=== PATIENT | female | born 1945 | race Caucasian/White ===

== ENCOUNTER → 2016-05-15 | Outpatient (CLI) | payer MEDICARE ==
[~2016-05-15] MED LIST: /HCTZ25TA PO; /MOXI40TA OR; /ONDA4TA OR; /PANT40TA PO; ABIL2TAB PO; ADV100INH INH; ADV250INH INH; ALPR0.25 OR; ALTA1CAP2 PO; AMLO10TA PO; AMLO25TA PO; ANOR1AER INH; ASPI1TAB PO; ASPI81TA85 PO; AUGM875T27 PO; AZEL0.055; AZITPOW XX; CARA1TAB2 PO; CHOLESTEROL MED; CIMETIDINE; COLA100C PO; COMBAER6 INH; COMBIN INH; CORE25TA PO; FOLI1TAB86 PO; K-TA1TAB PO; KLOR1TAB77 PO; LASI40TA PO; LEVA500T OR; LIPI80TA PO; LISI20TA5 OR; MAALSUS18 PO; MAGN400C2 PO; MAGN400T PO; MAGN400T5 PO; MAGO400T PO; MECL-68 PO; METO5TAB2 PO; NICO14DI3 TD; NICO21DI26 TOP; NICO21DI4 TD; OMEP20TA7 PO; PANT40TA2 PO; PLAV75TA38 PO; POTA10CA PO; PRED10PA PO; PRED10TA PO; PRED10TA2 PO; PREMARI625 PO; PRIL40CA OR; PRILOSEC20 PO; PRIN10TA PO; PROT1TAB2 PO; ROSU10TA OR; SERT-141 PO; SPIR25TA2 PO; SPIRIVA INH; THIA100T PO; TRAZ50TA2 PO; VITMTA PO; XANA0.25 OR; ZEST20TA OR; ZOLO25TA OR; ZYRT10CA PO; ZYRT10TA2 PO; [UNRECOGNIZED DRUG - CODE] INH; [UNRECOGNIZED DRUG - REMARK]
[2016-05-15 11:48] LABS: ANION GAP 7 MEQ/L (8-16); BLOOD UREA NITROGEN 12 MG/DL (7-18); CALCIUM LEVEL 8.9 MG/DL (8.8-10.2); CARBON DIOXIDE LEVEL 37 MEQ/L (21-32); CHLORIDE LEVEL 91 MEQ/L (98-107); CREATININE FOR GFR 0.73 MG/DL (0.55-1.02); GLOMERULAR FILTRATION RATE > 60.0 (>39); GLUCOSE, FASTING 83 MG/DL (83-110); MAGNESIUM LEVEL 2.1 MG/DL (1.8-2.4); POTASSIUM SERUM 4.2 MEQ/L (3.5-5.1); SODIUM LEVEL 135 MEQ/L (136-145)
== END ==
LOC: M WUC 10:12
PROVIDERS: ATTEND Nurse Practitioner Family
DX: I10 Essential (primary) hypertension (principal)

== ENCOUNTER 2016-05-16 20:10 | Inpatient (IN) | payer MEDICARE ==
[~2016-05-16] VITALS: Ht 157.5 cm; Wt 62.0 kg
[~2016-05-16 20:10] MED LIST changes: -ANOR1AER INH; -ASPI1TAB PO; -AZEL0.055; -COLA100C PO; -MAGN400T PO; -METO5TAB2 PO; -POTA10CA PO
[2016-05-16] MEDS ORDERED: MORPHINE 4 MG/ML 1ML SYRINGE As Ordered ONE (20:50)
[2016-05-16] MEDS ORDERED: ONDANSETRON 4MG/2ML VIAL (J2405) As Ordered ONE (20:50)
[2016-05-16 21:01] LABS: VENOUS BASE EXCESS 7.5 (-2.0-2.0); VENOUS O2 SATURATION 77.9 % (60.0-80.0); VENOUS PARTIAL PRESSURE CO2 60.9 mmHg (38.0-50.0); VENOUS PARTIAL PRESSURE O2 43.3 mmHg (30.0-50.0); VENOUS STANDARD HCO3 30.8 MEQ/L; VENOUS TOTAL CO2 36.6 MEQ/L (24.0-28.0)
[2016-05-16 21:07] LABS: BASO % 0.4 % (0.0-1.0); EOS # 0.1 K/mm3 (0.0-0.50); EOS % 1.5 % (0.0-3.0); LARGE UNSTAINED CELL # 0.1 K/mm3 (0.0-0.4); LARGE UNSTAINED CELL % 1.7 % (0.0-4.0); LYMPH # 1.3 K/mm3 (1.5-4.5); LYMPH % 20.3 % (24.0-44.0); MEAN CORPUSCULAR HEMOGLOBIN 26.7 pg (27.0-33.0); MEAN CORPUSCULAR HGB CONC 31.7 g/dl (32.0-36.5); MEAN CORPUSCULAR VOLUME 84.2 fl (80.0-96.0); MONO # 0.6 K/mm3 (0.0-0.8); MONO % 9.5 % (0.0-5.0); NEUTROPHILS # 3.9 K/mm3 (1.8-7.7); NEUTROPHILS % 66.6 % (36.0-66.0); PLATELET COUNT, AUTOMATED 281 k/mm3 (150-450); RED CELL DISTRIBUTION WIDTH 15.5 % (11.5-14.5); WHITE BLOOD COUNT 5.8 K/mm3 (4.0-10.0)
[2016-05-16 21:18] LABS: ALBUMIN 3.3 GM/DL (3.2-5.2); ALBUMIN/GLOBULIN RATIO 0.97 (1.00-1.93); ALKALINE PHOSPHATASE 94 U/L (45-117); ALT/SGPT 21 U/L (12-78); AMYLASE 73 U/L (25-115); ANION GAP 7 MEQ/L (8-16); AST/SGOT 24 U/L (15-37); BILIRUBIN,DIRECT 0.2 MG/DL (0.0-0.2); BILIRUBIN,TOTAL 0.6 MG/DL (0.2-1.0); BLOOD UREA NITROGEN 17 MG/DL (7-18); CALCIUM LEVEL 8.9 MG/DL (8.8-10.2); CARBON DIOXIDE LEVEL 36 MEQ/L (21-32); CHLORIDE LEVEL 93 MEQ/L (98-107); CREATININE FOR GFR 0.78 MG/DL (0.55-1.02); GLOMERULAR FILTRATION RATE > 60.0 (>39); GLUCOSE, FASTING 116 MG/DL (83-110); POTASSIUM SERUM 4.4 MEQ/L (3.5-5.1); SODIUM LEVEL 136 MEQ/L (136-145); TOTAL PROTEIN 6.7 GM/DL (6.4-8.2)
[2016-05-16] MEDS ORDERED: ISOVUE-370 76% 100ML VIAL (Q9967) As Ordered ONE (22:03)
--- NOTE | 2016-05-16 23:20 | REPUSA ---
CLINICAL HISTORY: Abdominal pain. TECHNIQUE: Multiple axial CT images were obtained through the abdomen and pelvis after administratio n of intravenous contrast material. Oral contrast was not administered. COMMENTS: Scattered severe bilateral emphysema is seen. Moderate sized bilateral pleural effusions are present. Bibasilar consolidations are present compatible with atelectasis versus pneumonia. Coronary calcif ication is seen with scarring seen in the right lobe of the lingula. The liver is of uniform attenuation without mass or defect. There is no intra or extrahepatic biliar y ductal dilatation. The spleen is normal. There is apparent gallbladder wall thickening. There is pericholecystic fluid. A 1 mm calcified gallstone is seen. The findings are suspicious for cholecy stitis. Clinical correlation is recommended to consider follow up with right upper quadrant ultrasou nd. The pancreas is of normal contour and attenuation characteristics. There is no evidence of adre nal mass. Both kidneys are lobulated. Several bilateral cortical renal cysts are present. Status post complet e hysterectomy. No evidence for appendicitis. There is no bowel wall thickening. No evidence for small or large bow el obstruction. There is no evidence of abdominal ascites or lymphadenopathy. There is no evidence of intrinsic or extrinsic bladder mass. There is no pelvic ascites or lymphaden opathy. Images of the lung bases show no evidence of pleural or parenchymal mass. There are no pleural effus ions. The bony structures are free of lytic or blastic lesions. IMPRESSION: 1. Findings suspicious for acute cholecystitis. Consider correlation with right upper quadrant ultra sound. 2. Bilateral pleural effusions, emphysema. 3. Several small bilateral cortical renal cysts. Thank you for your kind referral of this patient. We appreciate the opportunity to participate in thi s patient's care.
--- NOTE | 2016-05-17 01:10 | REPUSA ---
CLINICAL HISTORY: Abdominal pain. TECHNIQUE: Realtime sonographic images were obtained in multiple projections. COMMENTS: The liver is of normal size, parenchyma demonstrates normal echogenicity. No discrete hepatic mass is seen. There is no intra or extrahepatic biliary ductal dilatation. CBD measures 6.6mm. The gallbladder is d iffusely thickened without evidence of calculi. The gallbladder wall is not thickened and there is no pericholecystic fluid. There is no abdominal ascites. The right kidney measures 9.3 x3.8 cm , free of hydronephrosis. Multiple right renal cortical cysts with the largest in the upper pole measuring 1.6 cm. Right pleural effusion. IMPRESSION: Diffuse thickening of the lower of the gallbladder suspicious for an inflammatory pathology. No cholelithiasis. Thank you for your kind referral of this patient.
[2016-05-17] MEDS ORDERED: FUROSEMIDE 40 MG/4 ML VIAL (J1940) As Ordered ONE ×2 (02:16→12:21)
[2016-05-17] MEDS ORDERED: IPRATROPIUM 0.5MG/ALBUTEROL 2.5MG INH SOL UD 3ML (DUONEB)(J7620) As Ordered ONE ×5 (03:23→23:28)
[2016-05-17] MEDS ORDERED: ANOR1AER INH (03:24)
[2016-05-17] MEDS ORDERED: COLA100C PO (03:24)
[2016-05-17] MEDS ORDERED: AZEL0.055 (03:24)
[2016-05-17] MEDS ORDERED: METO5TAB2 PO (03:24)
[2016-05-17 04:39] VITALS: BP 125/85
[2016-05-17] MEDS: methylPREDNISolone INJ 40 MG/1 ML VIAL (J2920) IV SCH ×2 (04:56→17:17)
[2016-05-17] MEDS: IPRATROPIUM 0.5MG/ALBUTEROL 2.5MG INH SOL UD 3ML (DUONEB)(J7620) NEB PRN ×2 (05:30→19:37)
[2016-05-17] MEDS ORDERED: DOCUSATE SODIUM 100 MG CAP PO PRN (06:45)
[2016-05-17] MEDS: IPRATROPIUM 0.5MG/ALBUTEROL 2.5MG INH SOL UD 3ML (DUONEB)(J7620) NEB SCH ×3 (07:11→23:32)
[2016-05-17] MEDS ORDERED: ATORVASTATIN 20 MG TAB As Ordered ONE ×2 (07:46→07:50)
[2016-05-17] MEDS ORDERED: ENOXAPARIN 40 MG/0.4 ML SYRINGE (J1650) As Ordered ONE (07:46)
[2016-05-17] MEDS ORDERED: PANTOPRAZOLE 40MG TAB (PROTONIX) As Ordered ONE (07:46)
[2016-05-17] MEDS ORDERED: CLOPIDOGREL 75 MG TAB As Ordered ONE (07:46)
[2016-05-17] MEDS: PANTOPRAZOLE 40MG TAB (PROTONIX) PO SCH (07:50)
[2016-05-17] MEDS: ATORVASTATIN 20 MG TAB PO SCH (07:50)
[2016-05-17] MEDS: CLOPIDOGREL 75 MG TAB PO SCH (07:50)
[2016-05-17] MEDS: ENOXAPARIN 40 MG/0.4 ML SYRINGE (J1650) SC SCH (07:51)
[2016-05-17 07:59] VITALS: BP 116/59
[2016-05-17] MEDS ORDERED: IPRATROPIUM 0.5MG/ALBUTEROL 2.5MG INH SOL UD 3ML (DUONEB)(J7620) NEB SCH (08:00)
--- NOTE | 2016-05-17 08:31 | REP ---
Clinical: Cough. Comparison: 09/18/2015. Findings: Stable cardiomegaly is appreciated along with evidence to suggest pulmonary vascular congestion and interstitial edema. Layering pleural effusions and right basilar atelectasis suggested. Impression: Mild cardiomegaly with pulmonary vascular congestion and interstitial edema including suspected layering effusions and right basilar atelectasis. Signed by Kamron Kaufman MD 05/17/2016 08:22 A
--- NOTE | 2016-05-17 08:41 | ECGEPIP ---
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 RBBB ANTEROSEPTAL MYOCARDIAL INFARCTION, OF INDETERMINATE AGE NONSPECIFIC ST DEPRESSION SIMILKAR TO 07/02/15 Electronically Signed On 05-17-2016 8:41:01 EST by Chas Hanna
[2016-05-17] MEDS ORDERED: NICOTINE 21MG/24HR 1 EA TRANSDERMAL As Ordered ONE (09:05)
[2016-05-17] MEDS: METOCLOPRAMIDE 5 MG TAB PO SCH (09:09)
[2016-05-17] MEDS: MAGNESIUM OXIDE 400 MG TAB (MAG-OX) PO SCH (09:09)
[2016-05-17] MEDS: NICOTINE 21MG/24HR 1 EA TRANSDERMAL TD SCH (09:09)
[2016-05-17] MEDS: amLODIPine 10 MG TAB PO SCH (09:11)
--- NOTE | 2016-05-17 10:09 | HPE ---
DATE OF ADMISSION: 05/17/2016 PRIMARY CARE PROVIDER: Brown Trotter CODE STATUS: Full code. CHIEF COMPLAINT: Increasing shortness of breath for the last few days. HISTORY OF PRESENT ILLNESS: 70-year-old female patient of Brown Trotter who presented to the emergency department initially with complaint of abdominal pain for the last few days located more in the right upper quadrant, but she also states she has noticed increasing shortness of breath, nonproductive cough, dyspnea on exertion, lower extremity edema and orthopnea and she states that she has to sleep on 2 pillows at night which she has had to do for the last week or two. She does have a previous history of coronary artery disease status post stent placement a few years ago and high blood pressure. She continues to smoke approximately a pack a day, which we did could discuss smoking cessation and counseling was provided at bedside. She denies any substernal chest pain. No nausea or vomiting; however, the workup in the emergency department did reveal some thickening of the gallbladder with no cholelithiasis and her laboratory data was relatively unremarkable. PAST MEDICAL HISTORY (includes): 1. Chronic obstructive pulmonary disease (COPD). 2. Hypertension. 3. Status post cerebrovascular accident with no residual symptoms. 4. Coronary artery disease status post stent placement. 5. Uterine cancer. 6. Hypokalemia. 7. Hypomagnesemia. 8. Gastroesophageal reflux disease (GERD). SOCIAL HISTORY: The patient continues to smoke approximately a pack a day for several decades. She denies any alcohol use. No recent travel. No sick contacts. FAMILY HISTORY: Noncontributory. ALLERGIES: No known drug allergies. HOME MEDICATION LIST INCLUDES: - amlodipine 10 mg daily - Lipitor 80 mg daily - Plavix 75 mg daily - Klor-Con 20 mEq daily - magnesium oxide 400 mg daily - Protonix 40 mg daily - metoclopramide 5 mg once daily - Combivent inhaler 2 puffs four times daily - aspirin 81 mg daily - Anoro Ellipta 1 inhalation daily - Azelastine nasal spray 1 spray per nostril twice a day REVIEW OF SYSTEMS: Constitutional: The patient denies fevers, chills or rigors, but she has had decreased exercise tolerance and dyspnea on exertion. HEENT: No headache, lightheaded, dizziness. No blurry vision, double vision or tinnitus. Denies difficulty with speech or swallow. Pulmonary: She has had increasing shortness of breath, dyspnea on exertion, wheeze, nonproductive cough. Cardiovascular: She denies substernal chest pain, but she does have symptoms consistent with paroxysmal nocturnal dyspnea (PND), orthopnea and lower extremity edema for the last week or so. Gastrointestinal (GI): Right upper quadrant abdominal pain, constipation intermittently. Bowel movements otherwise have no hematochezia or melena. Genitourinary (): No dysuria, frequency or hematuria. Musculoskeletal: No bone, muscle, or joint pains, swelling or edema. Neurologic: No paresthesias. No paralysis. Lymphatics: No lumps, bumps, or swelling in the neck, axilla or groin. No night sweats. No weight loss. Hematology: No history of venous thromboembolism. No bleeding disorder or bruising disorder. Oncology: No history of cancer. Endocrine: Negative for diabetes, negative for thyroid disorder. Psychiatric: No history of depression. Denies suicidal ideation. No audiovisual hallucinations. 10-point review of systems completed, pertinent positives are listed. PHYSICAL EXAMINATION: Temperature is 98.7, respiratory rate is 22, pulse 80 and nonlabored, blood pressure (BP) is 133/60, SPO2 is 93% on 2 liters. She was attempted to titrate off and she desaturated into the 70s. General: The patient appears to be in no acute distress. She is alert and oriented. HEENT: Head is atraumatic, normocephalic. She does have 3 centimeter jugular venous distention (JVD) noted. Trachea is midline. No thyromegaly. Lungs: Diminished bibasilar breath sounds with expiratory wheeze and occasional crackles. Heart: Regular rate and rhythm. Abdomen: Soft. Extremities: She does have 1+ edema above the ankles bilaterally. No calf tenderness. Cranial nerves II-XII grossly intact. She is not demonstrating any gross motor or sensory deficits. LABORATORY DATA AND DIAGNOSTICS: White count 5.8, hemoglobin 12.4, platelets are 281,000. VBG shows a pH 7.374, pCO2 60.9. Sodium 136, potassium 4.4, chloride 93, bicarb 36, anion gap 7, BUN 17, creatinine is 0.78, glucose 116, lactic acid 1.0, total bilirubin 0.8, direct bilirubin 0.2, AST 24, ALT 21, alkaline phosphatase 94, CK 118, CK-MB 2.8 and troponin 0.02. BNP is pending at this time. Albumin 3.3, amylase is 73 and , lipase is 106. Abdomen and Pelvis: findings suspicious for acute cholecystitis, bilateral pleural effusions and emphysema is noted in the lower portion of the lungs and several small bilateral cortical renal cysts are noted. Gallbladder Ultrasound: Diffuse thickening of the lower part of the gallbladder suspicious for inflammatory pathology. No cholelithiasis noted. No other acute findings. Portable Chest X-ray: She does have some small bilateral pleural effusions noted with cephalization of pulmonary vasculature noted. She however does not show any significant cardiomegaly. 12-lead EKG sinus rhythm with occasional ectopic premature beats. No acute ST-T wave abnormality; however, she does have significant left axis deviation. This is consistent with previous EKG done on 07/02/2015. IMPRESSION: Ms. Welch is a 70-year-old female who has had increasing shortness of breath, dyspnea on exertion, paroxysmal nocturnal dyspnea (PND), orthopnea and lower extremity edema for approximately a week now. She does sleep on two pillows at home and she has noticed that her symptoms have become worse over the last few days. She did present to the emergency department with right upper quadrant pain. She did receive a liter bolus of normal saline. This may have further exacerbated her symptomatology. At any rate, she will need to be admitted for further workup for what appears to be volume overload and congestive heart failure. PROBLEM LIST: 1. Acute decompensation of congestive heart failure. 2. Right upper quadrant pain with possible cholelithiasis. Normal labs and no signs of biliary obstruction. 3. Chronic obstructive pulmonary disease (COPD). 4. Tobacco use with counseling provided. 5. History of coronary artery disease status post stent placement. 6. Hypertension. 7. Gastroesophageal reflux disease. 8. History of uterine cancer. PLAN: The patient will be admitted to the progressive care unit (PCU). Will cycle cardiac enzymes. Check 2D echocardiogram. She was given 40 of Lasix in the emergency department. Will continue with net negative Lasix. Fluid restrict to 1800 mL per day. Will give her a low sodium/bland diet. Deep vein thrombosis (DVT) prophylaxis with Lovenox. Her current home medications are being reconciled by pharmacy. Will also give her 40 mg of Solu-Medrol twice a day for possible COPD exacerbation. She does have some acute hypoxia requiring O2 supplementation. Will see if we can start titrating once she has diuresed well. At any rate, her BNP and 2D echo are pending at this time. DISPOSITION: Anticipate she will be here greater than two midnights. I will sign this patient out to Dr. Jacob to follow her in the morning.
[2016-05-17 12:00] VITALS: BP 115/58
[2016-05-17] MEDS: FUROSEMIDE 40 MG/4 ML VIAL (J1940) IV SCH (12:23)
[2016-05-17] MEDS ORDERED: ONDANSETRON 4MG/2ML VIAL (J2405) As Ordered ONE ×2 (14:24→20:33)
[2016-05-17] MEDS: ONDANSETRON 4MG/2ML VIAL (J2405) IV PRN ×2 (14:26→20:37)
--- NOTE | 2016-05-17 15:22 | ECHO ---
DATE OF PROCEDURE: 05/17/2016 AGE: 70 GENDER: Female. HEIGHT: 62 inches. WEIGHT: 138 pounds. BODY SURFACE AREA: 1.64 sq m INPATIENT: Currently on holding area in the emergency room. REFERRING PHYSICIAN: Dr. Kaleb Cunningham INDICATION: CHF. MEASUREMENTS: 2D MEASUREMENTS: RV: 3.6 cm LV: 4.8 cm Septum: 1.1 cm Posterior wall: 1.1 cm Right ventricular free wall: 0.8 cm Aortic root: 2.7 cm LA: 4.3 cm LVEF: 75%. DOPPLER MEASUREMENTS: AV: 1.8 m/s LVOT: 1.2 m/s LVOT diameter: 1.8 MV-E: 91 A: 140 E/A ratio: 0.7 Early mitral deceleration time: 277 ms E prime: 6.3 A prime: 7.4 E/E prime ratio: 14.4 PV: 1.0 m/s Pulmonary artery acceleration time: 103 ms RVSP: 51-56 mmHg IVC: 2.1 cm COMMENTS: Normal sinus rhythm without intraventricular conduction disturbance. Somewhat technically challenging study in light of the patient's body habitus, but diagnostically useful information was still obtained. At least mildly dilated left atrium, but normal left ventricular size. Normal right ventricular size with right atrium upper limits of normal and slightly dilated IVC. LV wall thickness was normal. Right ventricular free wall thickness was slightly increased. On real-time imaging from the parasternal and apical projections, the proximal portion of the inferoseptal wall was hypokinetic, but other wall motion was hyperkinetic. Mild-moderate mitral annular thickening, but normal leaflet thickness and excursion with no posterior systolic buckling. Three equal size, slightly thickened aortic cusp edges, but adequate cusp separation. Normal aortic root size. No apparent intracardiac mass or pericardial effusion. Color flow Doppler study taken from the parasternal and apical projections showed mild-moderate mitral with mild tricuspid, but no aortic insufficiency. Guided continuous wave Doppler of her aortic valve showed a normal peak systolic velocity against left ventricular (LV) outflow tract obstruction. Pulsed and continuous wave Doppler of her LV inflow tract taken from the apical four-chamber projection showed normal diastolic filling velocities against mitral stenosis. There was more prominent late diastolic/atrial dependent filling pattern. Diastolic dysfunction was further confirmed by a prolonged early mitral deceleration time and tissue Doppler of her mitral annulus. Her current estimated mean left atrial pressure was upper limits of normal to slightly elevated at 14 mmHg. Pulsed and continuous wave Doppler of her pulmonary trunk showed a normal peak systolic velocity against right ventricular (RV) outflow tract obstruction. Her pulmonary artery acceleration time was abbreviated suggestive of a slightly elevated pulmonary vascular resistance. Guided continuous wave Doppler of her tricuspid valve allowed our estimation of her right ventricular systolic pressure (at least moderately severely increased). Her inferior vena cava was at least mildly dilated with reduced respiratory collapse suggestive of an elevated central venous pressure of 15-20 mmHg. CONCLUSIONS: Normal left ventricular size and wall thickness with localized proximal inferoseptal hypokinesis, yet hyperkinetic global resting left ventricular systolic function. Mildly dilated left atrium with Doppler evidence of an impairment of left ventricular (LV) diastolic function, but currently estimated mean left atrial pressure only upper limits of normal to slightly elevated. Normal right ventricular size with borderline right ventricular free wall hypertrophy and Doppler evidence of moderately severe pulmonary hypertension. Slightly dilated right atrium and IVC with reduced respiratory collapse consistent with right heart failure. Mild mitral annular calcification without inflow tract obstruction but mild to moderate insufficiency. Aortic valvular sclerosis without functional valvular abnormality.
[2016-05-17 16:00] VITALS: BP 125/57
[2016-05-17 20:00] VITALS: BP 95/93
[2016-05-17] MEDS ORDERED: diphenhydrAMINE 25 MG CAP PO PRN (21:45)
[2016-05-17] MEDS ORDERED: diphenhydrAMINE 25 MG CAP As Ordered ONE (21:50)
[2016-05-18] VITALS: BP 104/55
[2016-05-18] MEDS ORDERED: FUROSEMIDE 40 MG/4 ML VIAL (J1940) As Ordered ONE (00:16)
[2016-05-18] MEDS ORDERED: FUROSEMIDE 20 MG/2 ML VIAL (J1940) As Ordered ONE (00:16)
[2016-05-18] MEDS: FUROSEMIDE 40 MG/4 ML VIAL (J1940) IV SCH (00:19)
[2016-05-18] MEDS ORDERED: methylPREDNISolone INJ 125 MG/2 ML VIAL (J2930) As Ordered ONE (03:59)
[2016-05-18 04:00] VITALS: BP 122/56
[2016-05-18] MEDS ORDERED: IPRATROPIUM 0.5MG/ALBUTEROL 2.5MG INH SOL UD 3ML (DUONEB)(J7620) As Ordered ONE ×2 (04:14→08:01)
[2016-05-18] MEDS: IPRATROPIUM 0.5MG/ALBUTEROL 2.5MG INH SOL UD 3ML (DUONEB)(J7620) NEB PRN (04:16)
[2016-05-18] MEDS: methylPREDNISolone INJ 40 MG/1 ML VIAL (J2920) IV SCH (04:16)
[2016-05-18] MEDS ORDERED: ONDANSETRON 4MG/2ML VIAL (J2405) As Ordered ONE (05:50)
[2016-05-18] MEDS: ONDANSETRON 4MG/2ML VIAL (J2405) IV PRN (05:53)
[2016-05-18 06:43] LABS: MEAN CORPUSCULAR HEMOGLOBIN 26.6 pg (27.0-33.0); MEAN CORPUSCULAR HGB CONC 31.7 g/dl (32.0-36.5); MEAN CORPUSCULAR VOLUME 83.9 fl (80.0-96.0); RED CELL DISTRIBUTION WIDTH 15.6 % (11.5-14.5); WHITE BLOOD COUNT 4.7 K/mm3 (4.0-10.0)
[2016-05-18 07:03] LABS: ALBUMIN/GLOBULIN RATIO 0.88 (1.00-1.93); ALKALINE PHOSPHATASE 79 U/L (45-117); ALT/SGPT 17 U/L (12-78); ANION GAP 8 MEQ/L (8-16); AST/SGOT 14 U/L (15-37); BILIRUBIN,TOTAL 0.4 MG/DL (0.2-1.0); BLOOD UREA NITROGEN 18 MG/DL (7-18); CARBON DIOXIDE LEVEL 41 MEQ/L (21-32); CHLORIDE LEVEL 90 MEQ/L (98-107); CREATININE FOR GFR 0.87 MG/DL (0.55-1.02); GLOMERULAR FILTRATION RATE > 60.0 (>39); GLUCOSE, FASTING 130 MG/DL (83-110); SODIUM LEVEL 139 MEQ/L (136-145); TOTAL PROTEIN 6.4 GM/DL (6.4-8.2)
[2016-05-18 07:06] LABS: POTASSIUM SERUM 3.4 MEQ/L (3.5-5.1)
[2016-05-18 08:00] VITALS: BP 118/66
[2016-05-18] MEDS: IPRATROPIUM 0.5MG/ALBUTEROL 2.5MG INH SOL UD 3ML (DUONEB)(J7620) NEB SCH (08:08)
[2016-05-18] MEDS: PANTOPRAZOLE 40MG TAB (PROTONIX) PO SCH (08:39)
[2016-05-18] MEDS: METOCLOPRAMIDE 5 MG TAB PO SCH (08:39)
[2016-05-18] MEDS: MAGNESIUM OXIDE 400 MG TAB (MAG-OX) PO SCH (08:39)
[2016-05-18 08:41] VITALS: BP 118/66
[2016-05-18] MEDS: CLOPIDOGREL 75 MG TAB PO SCH (08:41)
[2016-05-18] MEDS: amLODIPine 10 MG TAB PO SCH (08:41)
[2016-05-18] MEDS: NICOTINE 21MG/24HR 1 EA TRANSDERMAL TD SCH (08:41)
[2016-05-18] MEDS: ENOXAPARIN 40 MG/0.4 ML SYRINGE (J1650) SC SCH (08:41)
[2016-05-18] MEDS: ATORVASTATIN 20 MG TAB PO SCH (08:41)
--- NOTE | 2016-05-18 11:22 | EDDOCDS ---
Physician Documentation [facility] Name: Roberta Welch Age: 70 yrs Sex: Female : 1945 Arrival Date: 05/16/2016 Time: 20:10 Bed Admit Hold Private MD: Disposition: 05/17/16 02:11 Hospitalization ordered by Kaleb Cunningham for Inpatient Admission. Preliminary diagnosis are Acute diastolic (congestive) heart failure, Hypoxemia, Abdominal and pelvic pain - Biliary Colic. - Bed requested for Admit. - Status is Inpatient Admission. kcs - Condition is Stable. - Problem is an acute exacerbation. - Symptoms have improved. Historical: - Allergies: No known drug Allergies; - Home Meds: 1. amlodipine 10 mg Oral tab 1 tab once daily 2. atorvastatin 80 mg oral tab 1 tab once daily 3. Plavix 75 mg Oral tab 1 tab once daily 4. Klor-Con M20 20 mEq Oral TbTQ 1 tab once daily 5. magnesium oxide 400 mg Oral tab daily 6. Protonix 40 mg Oral TbEC 1 tab once daily 7. metoclopramide HCl 5 mg Oral tab 1 tab once daily 8. Combivent 18-103 mcg/actuation Inhl aero 2 puffs 4 times per day 9. aspirin 81 mg Oral chew 1 tab once daily 10. Anoro Ellipta 62.5-25 mcg/actuation inhalation dsdv 1 puff once daily 11. azelastine 0.15 % (205.5 mcg) nasal spry 1 spray 2 times per day - PMHx: COPD; Hypertension; CVA; CAD; Cancer, Uterine; - PSHx: Hysterectomy; Stents, Coronary; Knee surgery- Right; - Social history: Smoking status: Patient uses tobacco products, current every day smoker. No barriers to communication noted, The patient speaks fluent Pashto. - Family history: Not pertinent, No immediate family members are acutely ill. - : The pt / caregiver states he / she is on anticoagulants: Plavix. Home medication list is obtained from the patient, [employer] import data. - Exposure Risk Screening:: None identified. Vital Signs: 05/16 20:20 BP 116 / 57; Pulse 103; Resp 22; Temp 98.7(TE); Pulse Ox 87% on R/A; Weight 63.5 kg / jacqueline 139.99 lbs (R); Height 5 ft. 2 in. (157.48 cm) (R); Pain 10/10; 20:23 Pulse Ox 95% on 3 lpm NC; mlc 20:43 BP 123 / 59 (auto/); mlc 20:44 Pulse 92 MON; Pulse Ox 97% ; mlc 20:58 BP 119 / 60 (auto/); mlc 21:05 Pulse 88 MON; Pulse Ox 92% ; mlc 21:13 BP 107 / 59 (auto/); mlc 21:14 Pulse 82 MON; Pulse Ox 93% ; mlc 21:25 BP 107 / 59; Pulse 82; Pain 8/10; mlc 21:28 BP 135 / 60 (auto/); mlc 21:29 Pulse 80 MON; Pulse Ox 93% ; mlc 21:43 BP 123 / 58 (auto/); mlc 21:43 Pulse 80 MON; Pulse Ox 92% ; mlc 21:58 BP 128 / 70 (auto/); mlc 21:59 Pulse 80 MON; Pulse Ox 93% ; mlc 22:13 BP 124 / 66 (auto/); mlc 22:17 Pulse 88 MON; Pulse Ox 91% ; mlc 22:28 BP 122 / 58 (auto/); mlc 22:29 Pulse 82 MON; Pulse Ox 92% ; mlc 22:43 BP 133 / 60 (auto/); mlc 22:44 Pulse 80 MON; Pulse Ox 93% ; mlc 22:58 BP 125 / 59 (auto/); mlc 22:59 Pulse 80 MON; Pulse Ox 93% ; mlc 23:13 BP 128 / 60 (auto/); mlc 23:14 Pulse 82 MON; Pulse Ox 93% ; mlc 23:28 BP 126 / 60 (auto/); mlc 23:29 Pulse 80 MON; Pulse Ox 92% ; mlc 23:43 BP 124 / 60 (auto/); mlc 23:44 Pulse 82 MON; Pulse Ox 93% ; mlc 23:58 BP 127 / 58 (auto/); mlc 05/17 00:13 BP 122 / 59 (auto/); mlc 00:15 Pulse 84 MON; Pulse Ox 90% ; mlc 00:28 BP 125 / 59 (auto/); mlc 00:29 Pulse 78 MON; Pulse Ox 90% ; mlc 00:43 BP 121 / 59 (auto/); mlc 00:44 Pulse 78 MON; Pulse Ox 91% ; mlc 00:58 BP 124 / 59 (auto/); mlc 00:59 Pulse 80 MON; Pulse Ox 90% ; mlc 01:13 BP 121 / 57 (auto/); mlc 01:19 Pulse 80 MON; Pulse Ox 90% ; mlc 01:28 BP 134 / 63 (auto/); mlc 01:29 Pulse 90 MON; Pulse Ox 91% ; mlc 01:43 BP 134 / 59 (auto/); mlc 01:55 BP 136 / 65 (auto/); mlc 02:13 Temp 97.8(T); mlc 02:13 BP 127 / 60 (auto/); mar 30:15 Pulse 84 MON; Pulse Ox 90% ; mar 30:26 Pulse 82 MON; Pulse Ox 94% ; mlc 02:28 BP 141 / 66 (auto/); 02:57 BP 126 / 59 (auto/); mar 30:58 BP 134 / 62 (auto/); mar 30:58 Pulse 82 MON; Pulse Ox 91% ; mar 30:59 Pulse 84 MON; Resp 24; Pulse Ox 92% ; mar 31:28 BP 128 / 60 (auto/); mar 31:29 Pulse 92 MON; Pulse Ox 78% ; apr 16:42 BP 122 / 58; Pulse 97; Resp 20; Temp 98.3; Pulse Ox 93% ; mv5 05/16 20:20 Body Mass Index 25.61 (63.50 kg, 157.48 cm) jacqueline 05/16 20:20 RN AWARE OF O2 jacqueline MDM: 20:42 NS 0.9% 1000 ml IV at bolus once ordered. mm11 20:42 Ondansetron 4 mg IVP once ordered. mm11 20:42 morphine 4 mg IVP every 30 minutes; Document pain score/vitals after each dose (Hold if mm11 SBP < 90mmHg) x2 ordered. 20:42 -Blood Culture (Adults Only), peripheral from different site, or from device/port/PICC mm11 etc. if present ordered. 20:42 Brokerage Office Manager/Pulse Ox/q 15 min VS ordered. mm11 20:42 IV Saline Lock ordered. mm11 20:42 Undress patient appropriately for examination ordered. mm11 20:43 Amylase Ordered. EDMS 20:43 Basic Metabolic Profile Ordered. EDMS 20:44 CBC with Diff Ordered. EDMS 20:44 Cardiac Injury Profile Ordered. EDMS 20:44 Lipase Ordered. EDMS 20:44 Liver Profile Ordered. EDMS 20:44 Troponin Ordered. EDMS 20:44 -Blood Culture Ordered. EDMS 20:44 NOTHING BY MOUTH+DIET ordered. EDMS 20:44 Venous Blood Gas (large pea green tube on ice) Ordered. EDMS 20:44 Lactic Acid (Bunch tube on ice) Ordered. EDMS 20:48 -Blood Culture (Adults Only), peripheral from different site, or from device/port/PICC ml3 etc. if present complete. 20:50 BLOOD CULTURES Ordered. EDMS 21:03 Financial registration complete. gjb 21:05 [facility] Payment Agreement was scanned into [email or web address] and attached to record. gjb 21:41 Basic Metabolic Profile Reviewed. mm11 21:41 CBC with Diff Reviewed. mm11 21:41 Liver Profile Reviewed. mm11 21:41 Venous Blood Gas (large pea green tube on ice) Reviewed. mm11 21:41 Amylase Reviewed. mm11 21:41 Cardiac Injury Profile Reviewed. mm11 21:41 Lipase Reviewed. mm11 21:41 Troponin Reviewed. mm11 21:41 Lactic Acid (Bunch tube on ice) Reviewed. mm11 21:43 CT ABD & PELVIS: IV Contrast Only Ordered. EDMS 23:36 Gallbladder US Ordered. EDMS 02 01:39 CT ABD & PELVIS: IV Contrast Only Reviewed. mm11 01:39 Gallbladder US Reviewed. mm11 02:08 Furosemide 40 mg IVP once ordered. mm11 02:09 BED REQUEST+ADM ordered. EDMS 02:10 Chest, 1 View Ordered. EDMS 02:21 BNP Ordered. EDMS 02:40 CARDIAC INJURY PROFILE Ordered. EDMS 02:40 CARDIAC INJURY PROFILE Ordered. EDMS 02:40 CARDIAC INJURY PROFILE Ordered. EDMS 02:41 Admission / Observation Status ordered. EDMS 02:42 ECHOCARD,DOPPLER/COLOR FLOW ordered. EDMS 02:42 OTHER CUSTOM DIETS ordered. EDMS 02:43 ECG WITH READING ER PHYS+CARDIAG ordered. EDMS 03:14 Albuterol-Ipratropium 3 ml Inhalation once ordered. mm11 03:14 Call Respiratory ordered. mm11 03:14 Call Respiratory complete. ml3 19:31 COMPLETE BLOOD COUNT Ordered. EDMS 19:31 COMPLETE COMPHRENSIVE METABOLI Ordered. EDMS Administered Medications: 05/16 21:00 Drug: NS 0.9% 1000 ml [sodium chloride 0.9 % intravenous solution] Route: IV; Rate: mlc bolus; Site: right forearm; 23:58 Follow up: IV Status: Completed infusion [facility] [place] 21:00 Drug: Ondansetron 4 mg [ondansetron HCl 2 mg/mL intravenous solution (2 mL)] Route: mlc IVP; Site: right forearm; 21:25 Follow up: Response: Nausea is decreased; No Adverse Reaction [facility] [place] 21:00 Drug: morphine 4 mg [morphine 4 mg/mL intravenous cartridge (1 mL)] Route: IVP; Site: [facility] [place] right forearm; 21:25 Follow up: BP 107 / 59; Pulse 82 bpm; Pain 8/10 Adult; Response: Pain is decreased [facility] [place] 05/17 02:28 Drug: Furosemide 40 mg [furosemide 10 mg/mL injection solution (4 mL)] Route: IVP; [facility] [place] Site: right forearm; 03:26 Drug: Albuterol-Ipratropium 3 ml [ipratropium-albuterol 0.5 mg-3 mg(2.5 mg base)/3 mL 6 nebulization soln (3 mL)] Route: Inhalation; Signatures: Dispatcher [employer] EDJana Corona RN RN kcs Jobson, Karen, RN RN kpj Lopresti, Mary-Elizabeth, Amusement Or Recreation Card Checker Unit ml3 Keith Maddox, DO mm11 Lindy Cerna, COMMUTATOR V RING ASSEMBLER COMMUTATOR V RING ASSEMBLER ar3 Lilian Mondragon RN RN mlc Beck, Gabriela gjb Hollis, Jacob 6 The chart was reviewed and I authenticate all verbal orders and agree with the evaluation and treatment provided.Attachments: 05/16 21:05 [facility] [place] Payment Agreement pippa MTDJonnathan
--- NOTE | 2016-05-18 11:22 | EDDOCDS ---
Nurse's Notes [facility] Name: Roberta Guerra Age: 70 yrs Sex: Female : 1945 Arrival Date: 05/16/2016 Time: 20:10 Bed Admit Hold Private MD: Diagnosis: Acute diastolic (congestive) heart failure;Hypoxemia;Abdominal and pelvic pain-Biliary Colic Presentation: 05/16 20:15 Presenting complaint: EMS states: abdominal pain for a few days. pt reports mlc constipation. pain rated 10/10. denies nausea/vomiting. pt states her primary provider is supposed to "run tests on kidneys". Adult Sepsis Screening: The patient does not have new or worsening altered mentation. Patient has a respiratory rate of greater than or equal to 22 (1 point). Systolic blood pressure is greater than 100. Patient has a qSOFA score of 1- Negative Sepsis Screen. Suicide/Homicide risk assessment- the patient denies having any suicidal and/or homicidal ideations and does not present with any other emotional, behavioral or mental health complaints. Status: Patient is not a human service technician or dependent. Transition of care: patient was not received from another setting of care. 20:15 Acuity: DELISA Level 3 [facility] 20:15 Method Of Arrival: Ambulance [facility] Triage Assessment: 20:23 General: Appears uncomfortable, Behavior is anxious, cooperative. Pain: Location: [facility] abdomen Pain currently is 10 out of 10 on a pain scale. The patient is triaged at the bedside. See Assessment in Nurses Notes section of ED record. Neurological: Level of Consciousness is awake, alert, obeys commands, Oriented to person, place, time. Cardiovascular: Heart tones S1 S2 present Rhythm is regular Chest pain is denied. Respiratory: Airway is patent Respiratory effort is labored, Respiratory pattern is tachypnea Breath sounds are diminished in left posterior lower lobe and right posterior lower lobe Breath sounds with wheezes bilaterally. GI: Abdomen is non- distended Bowel sounds present X 4 quads. Abd is tender to palpation X 4 quads. Reports constipation, Denies nausea, vomiting. Derm: Skin is normal. Historical: - Allergies: No known drug Allergies; - Home Meds: 1. amlodipine 10 mg Oral tab 1 tab once daily 2. atorvastatin 80 mg oral tab 1 tab once daily 3. Plavix 75 mg Oral tab 1 tab once daily 4. Klor-Con M20 20 mEq Oral TbTQ 1 tab once daily 5. magnesium oxide 400 mg Oral tab daily 6. Protonix 40 mg Oral TbEC 1 tab once daily 7. metoclopramide HCl 5 mg Oral tab 1 tab once daily 8. Combivent 18-103 mcg/actuation Inhl aero 2 puffs 4 times per day 9. aspirin 81 mg Oral chew 1 tab once daily 10. Anoro Ellipta 62.5-25 mcg/actuation inhalation dsdv 1 puff once daily 11. azelastine 0.15 % (205.5 mcg) nasal spry 1 spray 2 times per day - PMHx: COPD; Hypertension; CVA; CAD; Cancer, Uterine; - PSHx: Hysterectomy; Stents, Coronary; Knee surgery- Right; - Social history: Smoking status: Patient uses tobacco products, current every day smoker. No barriers to communication noted, The patient speaks fluent Lithuanian. - Family history: Not pertinent, No immediate family members are acutely ill. - : The pt / caregiver states he / she is on anticoagulants: Plavix. Home medication list is obtained from the patient, QFPay import data. - Exposure Risk Screening:: None identified. Screenin:27 Screening information is obtained from the patient. Fall risk: No risks identified. [facility] Assistance ADL's: requires no assistance with activities of daily living. Abuse/DV Screen: The patient / caregiver reports he/she is: not in a situation that causes fear, pain or injury. Nutritional screening: decrease in appetite . Advance Directives: Currently, there is no health care proxy. There is no active DNR order. There is no Power of Manager Performance Improvement. home support is adequate. Assessment: 20:25 General: see triage assessment. . [facility] 21:06 General: pt medicated per order, IV fluids infusing per order. GI: Abdomen is non- mlc distended Bowel sounds present X 4 quads. Derm: Bruising that is dark purple, on right low back. 21:24 Reassessment: Patient states feeling better. Patient states symptoms have improved. [facility] pain decreased to 8/10. pt states she does not need additional pain medication at this time. . General: Appears in no apparent distress, comfortable. 22:21 Reassessment: Patient appears in no apparent distress at this time. pt returned from [facility] CT, tolerated well. resp easy/unlabored. . 22:21 Cardiovascular: Edema is 1+ to left foot, left toes, right foot and right toes. mlc 23:05 General: Appears in no apparent distress, comfortable, to be sleeping. Respiratory: mlc Airway is patent Respiratory effort is even, unlabored, Respiratory pattern is regular. 23:58 Reassessment: Patient appears in no apparent distress at this time. pt offers no mlc complaints. resp easy/unlabored. . 05/17 01:20 General: Appears in no apparent distress, comfortable, to be sleeping. Respiratory: mlc Airway is patent Respiratory effort is even, unlabored, Respiratory pattern is regular. 02:14 Reassessment: pt reports that she does not wear oxygen at home, pt taken off NC. SPO2 mlc dropped to mid-70s. Dr. Maddox at bedside. Pt placed back on 3L NC. . 02:28 Reassessment: pt medicated per order. commode placed at bedside. Respiratory: Breath mlc sounds are diminished Breath sounds with wheezes. Vital Signs: 05/16 20:20 BP 116 / 57; Pulse 103; Resp 22; Temp 98.7(TE); Pulse Ox 87% on R/A; Weight 63.5 kg jacqueline (R); Height 5 ft. 2 in. (157.48 cm) (R); Pain 10/10; 20:23 Pulse Ox 95% on 3 lpm NC; mlc 20:43 BP 123 / 59 (auto/); mlc 20:44 Pulse 92 MON; Pulse Ox 97% ; mlc 20:58 BP 119 / 60 (auto/); mlc 21:05 Pulse 88 MON; Pulse Ox 92% ; mlc 21:13 BP 107 / 59 (auto/); mlc 21:14 Pulse 82 MON; Pulse Ox 93% ; mlc 21:25 BP 107 / 59; Pulse 82; Pain 8/10; mlc 21:28 BP 135 / 60 (auto/); mlc 21:29 Pulse 80 MON; Pulse Ox 93% ; mlc 21:43 BP 123 / 58 (auto/); mlc 21:43 Pulse 80 MON; Pulse Ox 92% ; mlc 21:58 BP 128 / 70 (auto/); mlc 21:59 Pulse 80 MON; Pulse Ox 93% ; mlc 22:13 BP 124 / 66 (auto/); mlc 22:17 Pulse 88 MON; Pulse Ox 91% ; mlc 22:28 BP 122 / 58 (auto/); mlc 22:29 Pulse 82 MON; Pulse Ox 92% ; mlc 22:43 BP 133 / 60 (auto/); mlc 22:44 Pulse 80 MON; Pulse Ox 93% ; mlc 22:58 BP 125 / 59 (auto/); mlc 22:59 Pulse 80 MON; Pulse Ox 93% ; mlc 23:13 BP 128 / 60 (auto/); mlc 23:14 Pulse 82 MON; Pulse Ox 93% ; mlc 23:28 BP 126 / 60 (auto/); mlc 23:29 Pulse 80 MON; Pulse Ox 92% ; mlc 23:43 BP 124 / 60 (auto/); mlc 23:44 Pulse 82 MON; Pulse Ox 93% ; mlc 23:58 BP 127 / 58 (auto/); mlc 05/17 00:13 BP 122 / 59 (auto/); mlc 00:15 Pulse 84 MON; Pulse Ox 90% ; mlc 00:28 BP 125 / 59 (auto/); mlc 00:29 Pulse 78 MON; Pulse Ox 90% ; mlc 00:43 BP 121 / 59 (auto/); mlc 00:44 Pulse 78 MON; Pulse Ox 91% ; mlc 00:58 BP 124 / 59 (auto/); mlc 00:59 Pulse 80 MON; Pulse Ox 90% ; mlc 01:13 BP 121 / 57 (auto/); mlc 01:19 Pulse 80 MON; Pulse Ox 90% ; mlc 01:28 BP 134 / 63 (auto/); mlc 01:29 Pulse 90 MON; Pulse Ox 91% ; mlc 01:43 BP 134 / 59 (auto/); mlc 01:55 BP 136 / 65 (auto/); mlc 02:13 Temp 97.8(T); mlc 02:13 BP 127 / 60 (auto/); mar 30:15 Pulse 84 MON; Pulse Ox 90% ; mar 30:26 Pulse 82 MON; Pulse Ox 94% ; mlc 02:28 BP 141 / 66 (auto/); mlc 02:57 BP 126 / 59 (auto/); mar 30:58 BP 134 / 62 (auto/); mar 30:58 Pulse 82 MON; Pulse Ox 91% ; mar 30:59 Pulse 84 MON; Resp 24; Pulse Ox 92% ; mar 31:28 BP 128 / 60 (auto/); mar 31:29 Pulse 92 MON; Pulse Ox 78% ; apr 16:42 BP 122 / 58; Pulse 97; Resp 20; Temp 98.3; Pulse Ox 93% ; mv5 05/16 20:20 Body Mass Index 25.61 (63.50 kg, 157.48 cm) jacqueline 05/16 20:20 RN AWARE OF O2 jacqueline Vitals: 20:23 Log In Time N/A - ambulance arrival. [facility] ED Course: 20:11 Patient visited by Flavio Judge, Marriage Performer. ml3 20:11 Patient moved to Waiting ml3 20:12 Lilian Mondragon,RN is Primary Nurse. ml3 20:12 Patient moved to 10 ml3 20:17 Triage Initiated mlc 20:20 Patient visited by Susan Young PCA. jacqueline 20:20 Pt greeted and oriented to ED. Patient advised of names of staff involved in care, jacqueline location of call [place], wait times and NPO status. Patient has correct armband on for positive identification. Placed in gown. Bed in low position. Call light in reach. Side rails up X2. campus monitor on. Pulse ox on. NIBP on. 20:21 Patient visited by Susan Young PCA. jacqueline 20:28 Patient visited by Lilian Mondragon RN. mlc 20:29 Clotilde Maddox DO is Attending Physician. mm11 20:29 Patient visited by Clotilde Maddox DO. mm11 20:41 Patient visited by Clotilde Maddox DO. mm11 20:47 Lactic Acid (Bunch tube on ice) Sent. mlc 20:47 Venous Blood Gas (large pea green tube on ice) Sent. mlc 20:47 -Blood Culture Sent. mlc 20:47 Amylase Sent. mlc 20:47 Basic Metabolic Profile Sent. mlc 20:47 CBC with Diff Sent. mlc 20:47 Cardiac Injury Profile Sent. mlc 20:47 Lipase Sent. mlc 20:47 Liver Profile Sent. mlc 20:47 Troponin Sent. [facility] 21:05 [facility] Payment Agreement was scanned into [employer] and attached to record. gjb 21:07 Patient visited by Lilian Mondragon RN. mlc 21:07 The patient / caregiver is instructed regarding the plan of care and ED course. mlc 21:07 Inserted saline lock: 20 gauge in right forearm and blood collected. The patient mlc tolerated the procedure well. 21:23 BLOOD CULTURES Sent. mlc 21:25 Patient visited by Lilian Mondragon RN. mlc 22:23 Patient visited by Lilian Mondragon,STEFFANIE. mlc 23:06 Patient visited by Lilian Mondragon RN. mlc 23:56 CT ABD & PELVIS: IV Contrast Only Returned. EDMS 23:58 Patient visited by Lilian Mondragon RN. mlc 05/17 00:08 Patient moved to Ultrasound hgl 00:14 Patient moved to 10 hgl 00:58 Patient visited by Susan Young PCA. jacqueline 01:22 Patient visited by Lilian Mondragon RN. mlc 01:29 Gallbladder US Returned. EDMS 01:49 Alfonso Banegas MD is Referral Physician. mm11 02:11 Kaleb Cunningham DO is Hospitalizing Provider. mm11 02:14 Patient visited by Lilian Mondragon RN. mlc 02:29 Patient visited by Lilian Mondragon RN. mlc 02:29 O2 via nasal cannula \\T\\ 3L/min. mlc 02:33 BNP Sent. mlc 02:45 Patient moved to Admit Hold ml3 02:50 Patient visited by Susan Young PCA. jacqueline 02:50 EKG done. (by ED staff). Reviewed by Clotilde Maddox DO. jacqueline 08:17 Primary Nurse role handed off by Lilian Mondragon RN ar3 08:39 Chest, 1 View Returned. EDMS 09:12 EKG-ADULT Returned. EDMS 15:47 ECHOCARD,DOPPLER/COLOR FLOW Returned. EDMS 18:10 Patient visited by Nette Rojas Unit Clerk. jlm 18:10 Diet tray given. jlm Administered Medications: 05/16 21:00 Drug: NS 0.9% 1000 ml [sodium chloride 0.9 % intravenous solution] Route: IV; Rate: mlc bolus; Site: right forearm; 23:58 Follow up: IV Status: Completed infusion [facility] 21:00 Drug: Ondansetron 4 mg [ondansetron HCl 2 mg/mL intravenous solution (2 mL)] Route: mlc IVP; Site: right forearm; 21:25 Follow up: Response: Nausea is decreased; No Adverse Reaction [facility] 21:00 Drug: morphine 4 mg [morphine 4 mg/mL intravenous cartridge (1 mL)] Route: IVP; Site: mlc right forearm; 21:25 Follow up: BP 107 / 59; Pulse 82 bpm; Pain 8/10 Adult; Response: Pain is decreased [facility] 05/17 02:28 Drug: Furosemide 40 mg [furosemide 10 mg/mL injection solution (4 mL)] Route: IVP; [facility] Site: right forearm; 03:26 Drug: Albuterol-Ipratropium 3 ml [ipratropium-albuterol 0.5 mg-3 mg(2.5 mg base)/3 mL [facility] nebulization soln (3 mL)] Route: Inhalation; RT: 03:27 Initial Med Neb Given as ordered Patient was instructed and evaluated on procedure [id number] Patient tolerated procedure well without adverse effect. Respiratory: Airway is patent Respiratory effort is even, unlabored, Respiratory pattern is regular symmetrical, Breath sounds are diminished in right upper lobe, left upper lobe, right middle lobe, left lower lobe and right lower lobe Breath sounds with wheezes in right upper lobe, left upper lobe, right middle lobe, left lower lobe and right lower lobe at expiration. Order Results: Lab Order: -Blood Culture; SPEC'M 05/16/16 20:36 Test: BLOOD CULTURE; Value: No growth after 24 hours . All specimens observed; Status: F Test: BLOOD CULTURE; Value: for 7 days. Results final at that time.; Status: F Lab Order: Amylase; SPEC'M 05/16/16 20:36 Test: AMYLASE; Value: 73; Range: 25-115; Units: U/L; Status: F Lab Order: Basic Metabolic Profile; SPEC'M 05/16/16 20:36 Test: GLUCOSE, FASTING; Value: 116; Range: 83-110; Abnormal: Above high normal; Units: MG/DL; Status: F Test: BLOOD UREA NITROGEN; Value: 17; Range: 7-18; Units: MG/DL; Status: F Test: CREATININE FOR GFR; Value: 0.78; Range: 0.55-1.02; Units: MG/DL; Status: F Test: GLOMERULAR FILTRATION RATE; Value: > 60.0; Range: >39; Status: F Test: SODIUM LEVEL; Value: 136; Range: 136-145; Units: MEQ/L; Status: F Test: POTASSIUM SERUM; Value: 4.4; Range: 3.5-5.1; Units: MEQ/L; Status: F Test: CHLORIDE LEVEL; Value: 93; Range: 98-107; Abnormal: Below low normal; Units: MEQ/L; Status: F Test: CARBON DIOXIDE LEVEL; Value: 36; Range: 21-32; Abnormal: Above high normal; Units: MEQ/L; Status: F Test: ANION GAP; Value: 7; Range: 8-16; Abnormal: Below low normal; Units: MEQ/L; Status: F Test: CALCIUM LEVEL; Value: 8.9; Range: 8.8-10.2; Units: MG/DL; Status: F Test Note: ; Units are mL/min/1.73 m2 Chronic Kidney Disease Staging per NKF: Stage I & II GFR >=60 Normal to Mildly Decreased Stage III GFR 30-59 Moderately Decreased Stage IV GFR 15-29 Severely Decreased Stage V GFR <15 Very Little GFR Left ESRD GFR <15 on [employer] ADMINISTRATOR Lab Order: CBC with Diff; SPEC'M 05/16/16 20:36 Test: WHITE BLOOD COUNT; Value: 5.8; Range: 4.0-10.0; Units: K/mm3; Status: F Test: RED BLOOD COUNT; Value: 4.66; Range: 4.00-5.40; Units: M/mm3; Status: F Test: HEMOGLOBIN; Value: 12.4; Range: 12.0-16.0; Units: g/dl; Status: F Test: HEMATOCRIT; Value: 39.2; Range: 36.0-47.0; Units: %; Status: F Test: MEAN CORPUSCULAR VOLUME; Value: 84.2; Range: 80.0-96.0; Units: fl; Status: F Test: MEAN CORPUSCULAR HEMOGLOBIN; Value: 26.7; Range: 27.0-33.0; Abnormal: Below low normal; Units: pg; Status: F Test: MEAN CORPUSCULAR HGB CONC; Value: 31.7; Range: 32.0-36.5; Abnormal: Below low normal; Units: g/dl; Status: F Test: RED CELL DISTRIBUTION WIDTH; Value: 15.5; Range: 11.5-14.5; Abnormal: Above high normal; Units: %; Status: F Test: PLATELET COUNT, AUTOMATED; Value: 281; Range: 150-450; Units: k/mm3; Status: F Test: NEUTROPHILS %; Value: 66.6; Range: 36.0-66.0; Abnormal: Above high normal; Units: %; Status: F Test: LYMPH %; Value: 20.3; Range: 24.0-44.0; Abnormal: Below low normal; Units: %; Status: F Test: MONO %; Value: 9.5; Range: 0.0-5.0; Abnormal: Above high normal; Units: %; Status: F Test: EOS %; Value: 1.5; Range: 0.0-3.0; Units: %; Status: F Test: BASO %; Value: 0.4; Range: 0.0-1.0; Units: %; Status: F Test: LARGE UNSTAINED CELL %; Value: 1.7; Range: 0.0-4.0; Units: %; Status: F Test: NEUTROPHILS #; Value: 3.9; Range: 1.8-7.7; Units: K/mm3; Status: F Test: LYMPH #; Value: 1.3; Range: 1.5-4.5; Abnormal: Below low normal; Units: K/mm3; Status: F Test: MONO #; Value: 0.6; Range: 0.0-0.8; Units: K/mm3; Status: F Test: EOS #; Value: 0.1; Range: 0.0-0.50; Units: K/mm3; Status: F Test: BASO #; Value: 0.0; Range: 0.0-0.2; Units: K/mm3; Status: F Test: LARGE UNSTAINED CELL #; Value: 0.1; Range: 0.0-0.4; Units: K/mm3; Status: F Lab Order: Cardiac Injury Profile; SPEC'M 05/16/16 20:36 Test: CPK CREATINE PHOSPHOKINASE; Value: 118; Range: 26-192; Units: U/L; Status: F Test: CK-MB VALUE MASS; Value: 2.8; Range: 0.0-3.6; Units: NG/ML; Status: F Test: MB/CK RELATIVE INDEX; Value: 2.37; Range: < OR =4; Status: F Test Note: ; DIAGNOSIS CRITERIA MMB ng/ml Relative Index (RI) NON-AMI < or = 5 N/A BUNCH ZONE > 5 < or = 4 AMI > 5 > 4 Lab Order: Lipase; [facility] 05/16/16 20:36 Test: LIPASE; Value: 106; Range: 73-393; Units: U/L; Status: F Lab Order: Liver Profile; [facility] 05/16/16 20:36 Test: AST/SGOT; Value: 24; Range: 15-37; Units: U/L; Status: F Test: ALT/SGPT; Value: 21; Range: 12-78; Units: U/L; Status: F Test: ALKALINE PHOSPHATASE; Value: 94; Range: 45-117; Units: U/L; Status: F Test: BILIRUBIN,TOTAL; Value: 0.6; Range: 0.2-1.0; Units: MG/DL; Status: F Test: BILIRUBIN,DIRECT; Value: 0.2; Range: 0.0-0.2; Units: MG/DL; Status: F Test: TOTAL PROTEIN; Value: 6.7; Range: 6.4-8.2; Units: GM/DL; Status: F Test: ALBUMIN; Value: 3.3; Range: 3.2-5.2; Units: GM/DL; Status: F Test: ALBUMIN/GLOBULIN RATIO; Value: 0.97; Range: 1.00-1.93; Abnormal: Below low normal; Status: F Lab Order: Troponin; [facility] 05/16/16 20:36 Test: TROPONIN I; Value: 0.02; Range: < 0.10; Units: NG/ML; Status: F Test Note: ; Troponin I Reference Interval for [facility] LOCI: 99th Percentile= 0.00-0.045 ng/ml Risk Stratification: <= 0.10 ng/ml Decreased Risk for Adverse Clinical Events. 0.10-1.50 ng/ml Increased Risk for Adverse Clinical Events. Evaluation of additional criterion and/or repeat testing in 2-6 hours is suggested to rule out myocardial damage. >= 1.50 ng/ml Indicative of Myocardial Injury. Lab Order: Venous Blood Gas (large pea green tube on ice); [facility] 05/16/16 20:36 Test: VENOUS PH; Value: 7.374; Range: 7.330-7.430; Units: UNITS; Status: F Test: VENOUS PARTIAL PRESSURE CO2; Value: 60.9; Range: 38.0-50.0; Abnormal: Above high normal; Units: mmHg; Status: F Test: VENOUS PARTIAL PRESSURE O2; Value: 43.3; Range: 30.0-50.0; Units: mmHg; Status: F Test: VENOUS TOTAL CO2; Value: 36.6; Range: 24.0-28.0; Abnormal: Above high normal; Units: MEQ/L; Status: F Test: VENOUS HCO3; Value: 34.7; Range: 23.0-27.0; Abnormal: Above high normal; Units: MEQ/L; Status: F Test: VENOUS BASE EXCESS; Value: 7.5; Range: -2.0-2.0; Abnormal: Above high normal; Status: F Test: VENOUS STANDARD HCO3; Value: 30.8; Units: MEQ/L; Status: F Test: VENOUS O2 SATURATION; Value: 77.9; Range: 60.0-80.0; Units: %; Status: F Lab Order: Lactic Acid (Bunch tube on ice); [facility] 05/16/16 20:36 Test: LACTIC ACID SEPSIS PROTOCOL; Value: 1.0; Range: 0.4-2.0; Units: MMOL/L; Status: F Lab Order: BLOOD CULTURES; [facility] 05/16/16 21:18 Test: BLOOD CULTURE; Value: No growth after 24 hours . All specimens observed; Status: F Test: BLOOD CULTURE; Value: for 7 days. Results final at that time.; Status: F Lab Order: BNP; [facility] 05/17/16 02:55 Test: BRAIN NATRIURETIC PEPTIDE; Value: 1050; Range: <100; Abnormal: Above high normal; Units: PG/ML; Status: F Lab Order: CARDIAC INJURY PROFILE; [facility] 05/17/16 02:55 Test: CPK CREATINE PHOSPHOKINASE; Value: 91; Range: 26-192; Units: U/L; Status: F Test: CK-MB VALUE MASS; Value: 2.5; Range: 0.0-3.6; Units: NG/ML; Status: F Test: MB/CK RELATIVE INDEX; Value: 2.74; Range: < OR =4; Status: F Test Note: ; DIAGNOSIS CRITERIA MMB ng/ml Relative Index (RI) NON-AMI < or = 5 N/A BUNCH ZONE > 5 < or = 4 AMI > 5 > 4 Lab Order: CARDIAC INJURY PROFILE; [facility] 05/17/16 10:11 Test: CPK CREATINE PHOSPHOKINASE; Value: 74; Range: 26-192; Units: U/L; Status: F Test: CK-MB VALUE MASS; Value: 1.9; Range: 0.0-3.6; Units: NG/ML; Status: F Test: MB/CK RELATIVE INDEX; Value: 2.56; Range: < OR =4; Status: F Test Note: ; DIAGNOSIS CRITERIA MMB ng/ml Relative Index (RI) NON-AMI < or = 5 N/A BUNCH ZONE > 5 < or = 4 AMI > 5 > 4 Lab Order: CARDIAC INJURY PROFILE; [facility] 05/17/16 18:24 Test: CPK CREATINE PHOSPHOKINASE; Value: 83; Range: 26-192; Units: U/L; Status: F Test: CK-MB VALUE MASS; Value: 2.0; Range: 0.0-3.6; Units: NG/ML; Status: F Test: MB/CK RELATIVE INDEX; Value: 2.40; Range: < OR =4; Status: F Test Note: ; DIAGNOSIS CRITERIA MMB ng/ml Relative Index (RI) NON-AMI < or = 5 N/A BUNCH ZONE > 5 < or = 4 AMI > 5 > 4 Lab Order: COMPLETE BLOOD COUNT; [facility] 05/18/16 06:14 Test: WHITE BLOOD COUNT; Value: 4.7; Range: 4.0-10.0; Units: K/mm3; Status: F Test: RED BLOOD COUNT; Value: 4.29; Range: 4.00-5.40; Units: M/mm3; Status: F Test: HEMOGLOBIN; Value: 11.4; Range: 12.0-16.0; Abnormal: Below low normal; Units: g/dl; Status: F Test: HEMATOCRIT; Value: 36.0; Range: 36.0-47.0; Units: %; Status: F Test: MEAN CORPUSCULAR VOLUME; Value: 83.9; Range: 80.0-96.0; Units: fl; Status: F Test: MEAN CORPUSCULAR HEMOGLOBIN; Value: 26.6; Range: 27.0-33.0; Abnormal: Below low normal; Units: pg; Status: F Test: MEAN CORPUSCULAR HGB CONC; Value: 31.7; Range: 32.0-36.5; Abnormal: Below low normal; Units: g/dl; Status: F Test: RED CELL DISTRIBUTION WIDTH; Value: 15.6; Range: 11.5-14.5; Abnormal: Above high normal; Units: %; Status: F Test: PLATELET COUNT, AUTOMATED; Value: 244; Range: 150-450; Units: k/mm3; Status: F Lab Order: COMPLETE COMPHRENSIVE METABOLI; SPEC'M 05/18/16 06:14 Test: GLUCOSE, FASTING; Value: 130; Range: 83-110; Abnormal: Above high normal; Units: MG/DL; Status: F Test: BLOOD UREA NITROGEN; Value: 18; Range: 7-18; Units: MG/DL; Status: F Test: CREATININE FOR GFR; Value: 0.87; Range: 0.55-1.02; Units: MG/DL; Status: F Test: GLOMERULAR FILTRATION RATE; Value: > 60.0; Range: >39; Status: F Test: SODIUM LEVEL; Value: 139; Range: 136-145; Units: MEQ/L; Status: F Test: POTASSIUM SERUM; Value: 3.4; Range: 3.5-5.1; Units: MEQ/L; Status: F Test: CHLORIDE LEVEL; Value: 90; Range: 98-107; Abnormal: Below low normal; Units: MEQ/L; Status: F Test: CARBON DIOXIDE LEVEL; Value: 41; Range: 21-32; Abnormal: Above high normal; Units: MEQ/L; Status: F Test: ANION GAP; Value: 8; Range: 8-16; Units: MEQ/L; Status: F Test: CALCIUM LEVEL; Value: 9.0; Range: 8.8-10.2; Units: MG/DL; Status: F Test: AST/SGOT; Value: 14; Range: 15-37; Abnormal: Below low normal; Units: U/L; Status: F Test: ALT/SGPT; Value: 17; Range: 12-78; Units: U/L; Status: F Test: ALKALINE PHOSPHATASE; Value: 79; Range: 45-117; Units: U/L; Status: F Test: BILIRUBIN,TOTAL; Value: 0.4; Range: 0.2-1.0; Units: MG/DL; Status: F Test: TOTAL PROTEIN; Value: 6.4; Range: 6.4-8.2; Units: GM/DL; Status: F Test: ALBUMIN; Value: 3.0; Range: 3.2-5.2; Abnormal: Below low normal; Units: GM/DL; Status: F Test: ALBUMIN/GLOBULIN RATIO; Value: 0.88; Range: 1.00-1.93; Abnormal: Below low normal; Status: F Test Note: ; Units are mL/min/1.73 m2 Chronic Kidney Disease Staging per NKF: Stage I & II GFR >=60 Normal to Mildly Decreased Stage III GFR 30-59 Moderately Decreased Stage IV GFR 15-29 Severely Decreased Stage V GFR <15 Very Little GFR Left ESRD GFR <15 on [employer] ADMINISTRATOR Radiology Order: CT ABD & PELVIS: IV Contrast Only Test: CT ABD & PELVIS: IV Contrast Only REASON FOR EXAMINATION: Abdomen Pain; ; CLINICAL HISTORY: Abdominal pain.; ; TECHNIQUE: Multiple axial CT images were obtained through the abdomen and pelvis after administratio; n of intravenous contrast material. Oral contrast was not administered.; ; COMMENTS:; Scattered severe bilateral emphysema is seen. Moderate sized bilateral pleural effusions are present.; Bibasilar consolidations are present compatible with atelectasis versus pneumonia. Coronary calcif; ication is seen with scarring seen in the right lobe of the lingula.; ; The liver is of uniform attenuation without mass or defect. There is no intra or extrahepatic biliar; y ductal dilatation. The spleen is normal. There is apparent gallbladder wall thickening. There is; pericholecystic fluid. A 1 mm calcified gallstone is seen. The findings are suspicious for cholecy; stitis. Clinical correlation is recommended to consider follow up with right upper quadrant ultrasou; nd. The pancreas is of normal contour and attenuation characteristics. There is no evidence of adre; nal mass.; ; Both kidneys are lobulated. Several bilateral cortical renal cysts are present. Status post complet; e hysterectomy.; ; No evidence for appendicitis. There is no bowel wall thickening. No evidence for small or large bow; el obstruction. There is no evidence of abdominal ascites or lymphadenopathy.; ; There is no evidence of intrinsic or extrinsic bladder mass. There is no pelvic ascites or lymphaden; opathy.; ; Images of the lung bases show no evidence of pleural or parenchymal mass. There are no pleural effus; ions. The bony structures are free of lytic or blastic lesions.; ; IMPRESSION:; 1. Findings suspicious for acute cholecystitis. Consider correlation with right upper quadrant ultra; sound.; 2. Bilateral pleural effusions, emphysema.; 3. Several small bilateral cortical renal cysts.; ; ; Thank you for your kind referral of this patient. We appreciate the opportunity to participate in [facility]; s patient's care.; ; Radiology Order: Gallbladder US Test: Gallbladder US REASON FOR EXAMINATION: Biliary Colic; ; CLINICAL HISTORY: Abdominal pain.; TECHNIQUE: Realtime sonographic images were obtained in multiple projections.; COMMENTS:; The liver is of normal size, parenchyma demonstrates normal echogenicity. No discrete hepatic mass is; seen.; There is no intra or extrahepatic biliary ductal dilatation. CBD measures 6.6mm. The gallbladder is d; iffusely thickened without evidence of calculi. The gallbladder wall is not thickened and there is no; pericholecystic fluid. There is no abdominal ascites.; The right kidney measures 9.3 x3.8 cm , free of hydronephrosis. Multiple right renal cortical cysts; with the largest in the upper pole measuring 1.6 cm.; Right pleural effusion.; IMPRESSION:; Diffuse thickening of the lower of the gallbladder suspicious for an inflammatory pathology.; No cholelithiasis.; Thank you for your kind referral of this patient.; ; Radiology Order: Chest, 1 View Test: Chest, 1 View REASON FOR EXAMINATION: Cough; Clinical: Cough.; ; Comparison: 09/18/2015.; ; Findings:; Stable cardiomegaly is appreciated along with evidence to suggest pulmonary; vascular congestion and interstitial edema. Layering pleural effusions and right; basilar atelectasis suggested.; ; Impression:; Mild cardiomegaly with pulmonary vascular congestion and interstitial edema; including suspected layering effusions and right basilar atelectasis.; ; ; Signed by; Kamron Kaufman MD 05/17/2016 08:22 A; Radiology Order: ECHOCARD,DOPPLER/COLOR FLOW Test: ECHOCARD,DOPPLER/COLOR FLOW DATE OF PROCEDURE: 05/17/2016; ; AGE: 70; GENDER: Female.; HEIGHT: 62 inches.; WEIGHT: 138 pounds.; BODY SURFACE AREA: 1.64 sq m; ; INPATIENT: Currently on holding area in the emergency room.; ; REFERRING PHYSICIAN: Dr. Kaleb Cunningham; ; INDICATION: CHF.; ; MEASUREMENTS:; ; 2D MEASUREMENTS:; RV: 3.6 cm; LV: 4.8 cm; Septum: 1.1 cm; Posterior wall: 1.1 cm; Right ventricular free wall: 0.8 cm; Aortic root: 2.7 cm; LA: 4.3 cm; LVEF: 75%.; ; DOPPLER MEASUREMENTS:; AV: 1.8 m/s; LVOT: 1.2 m/s; LVOT diameter: 1.8; MV-E: 91 A: 140 E/A ratio: 0.7; Early mitral deceleration time: 277 ms; E prime: 6.3 A prime: 7.4 E/E prime ratio: 14.4; PV: 1.0 m/s; Pulmonary artery acceleration time: 103 ms; RVSP: 51-56 mmHg; IVC: 2.1 cm; ; COMMENTS:; Normal sinus rhythm without intraventricular conduction disturbance. Somewhat; technically challenging study in light of the patient's body habitus, but; diagnostically useful information was still obtained.; ; At least mildly dilated left atrium, but normal left ventricular size. Normal; right ventricular size with right atrium upper limits of normal and slightly; dilated IVC. LV wall thickness was normal. Right ventricular free wall; thickness was slightly increased. On real-time imaging from the parasternal and; apical projections, the proximal portion of the inferoseptal wall was; hypokinetic, but other wall motion was hyperkinetic. Mild-moderate mitral; annular thickening, but normal leaflet thickness and excursion with no posterior; systolic buckling. Three equal size, slightly thickened aortic cusp edges, but; adequate cusp separation. Normal aortic root size. No apparent intracardiac; mass or pericardial effusion.; ; Color flow Doppler study taken from the parasternal and apical projections showed; mild-moderate mitral with mild tricuspid, but no aortic insufficiency.; ; Guided continuous wave Doppler of her aortic valve showed a normal peak systolic; velocity against left ventricular (LV) outflow tract obstruction.; ; Pulsed and continuous wave Doppler of her LV inflow tract taken from the apical; four-chamber projection showed normal diastolic filling velocities against mitral; stenosis. There was more prominent late diastolic/atrial dependent filling; pattern. Diastolic dysfunction was further confirmed by a prolonged early mitral; deceleration time and tissue Doppler of her mitral annulus. Her current; estimated mean left atrial pressure was upper limits of normal to slightly; elevated at 14 mmHg.; ; Pulsed and continuous wave Doppler of her pulmonary trunk showed a normal peak; systolic velocity against right ventricular (RV) outflow tract obstruction. Her; pulmonary artery acceleration time was abbreviated suggestive of a slightly; elevated pulmonary vascular resistance.; ; Guided continuous wave Doppler of her tricuspid valve allowed our estimation of; her right ventricular systolic pressure (at least moderately severely increased).; Her inferior vena cava was at least mildly dilated with reduced respiratory; collapse suggestive of an elevated central venous pressure of 15-20 mmHg.; ; CONCLUSIONS:; Normal left ventricular size and wall thickness with localized proximal; inferoseptal hypokinesis, yet hyperkinetic global resting left ventricular; systolic function.; ; Mildly dilated left atrium with Doppler evidence of an impairment of left; ventricular (LV) diastolic function, but currently estimated mean left atrial; pressure only upper limits of normal to slightly elevated.; ; Normal right ventricular size with borderline right ventricular free wall; hypertrophy and Doppler evidence of moderately severe pulmonary hypertension.; ; Slightly dilated right atrium and IVC with reduced respiratory collapse; consistent with right heart failure.; ; Mild mitral annular calcification without inflow tract obstruction but mild to; moderate insufficiency. Aortic valvular sclerosis without functional valvular; abnormality.; Radiology Order: EKG-ADULT Test: EKG-ADULT REASON FOR EXAMINATION: Shortness of Breath; Stationary ECG Study; [facility] - ED; ; Test Date: 2016-05-17; Pat Name: ROBERTA GUERRA Department:; Room: [place] [address]; Gender: F Dental Assistant Medical Assistant: luke; : 1945 Requested By: CLOTILDE De Santiago; Order Number: [id number] Reading MD: Chas Hanna; Measurements; Intervals [place]; Rate: 87 P: 32; MA: 187 QRS: -57; QRSD: 81 T: 61; QT: 318; QTc: 385; Interpretive Statements; SINUS RHYTHM WITH OCCASIONAL ECTOPIC PREMATURE COMPLEXES; LEFT AXIS DEVIATION; INC. RBBB; ANTEROSEPTAL MYOCARDIAL INFARCTION, OF INDETERMINATE AGE; NONSPECIFIC ST DEPRESSION; SIMILKAR TO 07/02/15; ; Electronically Signed On 05-17-2016 8:41:01 EST by Chas Hanna; Outcome: 01:49 Discharge ordered by Provider. [id number] 02:11 Decision to Hospitalize by Provider. mm11 05/18 11:21 Patient left the ED. kcs Signatures: Dispatcher [employer] EDJana Corona, RN RN Juany Wong RN RN jan Lopresti, Mary-Elizabeth, Marriage Performer Unit ml3 Clotilde Maddox, DO mm11 Lindy Cerna, END FINDER FORMING DEPARTMENT END FINDER FORMING DEPARTMENT ar3 Susan Young, END FINDER FORMING DEPARTMENT END FINDER FORMING DEPARTMENT jacqueline Fantasma Blackburn jh6 Ly, Phil hgl Nette Rojas, Marriage Performer Unit Lilian Ralph RN RN Annia Daily Megan,RN RN mv5 Corrections: (The following items were deleted from the chart) 05/16 22:23 21:06 General: pt medicated per order, IV fluids infusing per order. [facility] MTDD
[2016-05-18] MEDS ORDERED: MAGN400T PO (16:19)
[2016-05-18] MEDS ORDERED: POTA10CA PO (16:19)
[2016-05-18] MEDS ORDERED: ASPI1TAB PO (16:19)
--- NOTE | 2016-05-20 12:22 | EDDOCDS ---
Physician Documentation [facility] Name: Roberta Welch Age: 70 yrs Sex: Female : 1945 Arrival Date: 05/16/2016 Time: 20:10 Bed Admit Hold Private MD: Disposition: 05/17/16 02:11 Hospitalization ordered by Kaleb Cunningham for Inpatient Admission. Preliminary diagnosis are Acute diastolic (congestive) heart failure, Hypoxemia, Abdominal and pelvic pain - Biliary Colic. - Bed requested for Admit. - Status is Inpatient Admission. kcs - Condition is Stable. - Problem is an acute exacerbation. - Symptoms have improved. Historical: - Allergies: No known drug Allergies; - Home Meds: 1. amlodipine 10 mg Oral tab 1 tab once daily 2. atorvastatin 80 mg oral tab 1 tab once daily 3. Plavix 75 mg Oral tab 1 tab once daily 4. Klor-Con M20 20 mEq Oral TbTQ 1 tab once daily 5. magnesium oxide 400 mg Oral tab daily 6. Protonix 40 mg Oral TbEC 1 tab once daily 7. metoclopramide HCl 5 mg Oral tab 1 tab once daily 8. Combivent 18-103 mcg/actuation Inhl aero 2 puffs 4 times per day 9. aspirin 81 mg Oral chew 1 tab once daily 10. Anoro Ellipta 62.5-25 mcg/actuation inhalation dsdv 1 puff once daily 11. azelastine 0.15 % (205.5 mcg) nasal spry 1 spray 2 times per day - PMHx: COPD; Hypertension; CVA; CAD; Cancer, Uterine; - PSHx: Hysterectomy; Stents, Coronary; Knee surgery- Right; - Social history: Smoking status: Patient uses tobacco products, current every day smoker. No barriers to communication noted, The patient speaks fluent Danish. - Family history: Not pertinent, No immediate family members are acutely ill. - : The pt / caregiver states he / she is on anticoagulants: Plavix. Home medication list is obtained from the patient, [employer] import data. - Exposure Risk Screening:: None identified. Vital Signs: 05/16 20:20 BP 116 / 57; Pulse 103; Resp 22; Temp 98.7(TE); Pulse Ox 87% on R/A; Weight 63.5 kg / jacqueline 139.99 lbs (R); Height 5 ft. 2 in. (157.48 cm) (R); Pain 10/10; 20:23 Pulse Ox 95% on 3 lpm NC; mlc 20:43 BP 123 / 59 (auto/); mlc 20:44 Pulse 92 MON; Pulse Ox 97% ; mlc 20:58 BP 119 / 60 (auto/); mlc 21:05 Pulse 88 MON; Pulse Ox 92% ; mlc 21:13 BP 107 / 59 (auto/); mlc 21:14 Pulse 82 MON; Pulse Ox 93% ; mlc 21:25 BP 107 / 59; Pulse 82; Pain 8/10; mlc 21:28 BP 135 / 60 (auto/); mlc 21:29 Pulse 80 MON; Pulse Ox 93% ; mlc 21:43 BP 123 / 58 (auto/); mlc 21:43 Pulse 80 MON; Pulse Ox 92% ; mlc 21:58 BP 128 / 70 (auto/); mlc 21:59 Pulse 80 MON; Pulse Ox 93% ; mlc 22:13 BP 124 / 66 (auto/); mlc 22:17 Pulse 88 MON; Pulse Ox 91% ; mlc 22:28 BP 122 / 58 (auto/); mlc 22:29 Pulse 82 MON; Pulse Ox 92% ; mlc 22:43 BP 133 / 60 (auto/); mlc 22:44 Pulse 80 MON; Pulse Ox 93% ; mlc 22:58 BP 125 / 59 (auto/); mlc 22:59 Pulse 80 MON; Pulse Ox 93% ; mlc 23:13 BP 128 / 60 (auto/); mlc 23:14 Pulse 82 MON; Pulse Ox 93% ; mlc 23:28 BP 126 / 60 (auto/); mlc 23:29 Pulse 80 MON; Pulse Ox 92% ; mlc 23:43 BP 124 / 60 (auto/); mlc 23:44 Pulse 82 MON; Pulse Ox 93% ; mlc 23:58 BP 127 / 58 (auto/); mlc 05/17 00:13 BP 122 / 59 (auto/); mlc 00:15 Pulse 84 MON; Pulse Ox 90% ; mlc 00:28 BP 125 / 59 (auto/); mlc 00:29 Pulse 78 MON; Pulse Ox 90% ; mlc 00:43 BP 121 / 59 (auto/); mlc 00:44 Pulse 78 MON; Pulse Ox 91% ; mlc 00:58 BP 124 / 59 (auto/); mlc 00:59 Pulse 80 MON; Pulse Ox 90% ; mlc 01:13 BP 121 / 57 (auto/); mlc 01:19 Pulse 80 MON; Pulse Ox 90% ; mlc 01:28 BP 134 / 63 (auto/); mlc 01:29 Pulse 90 MON; Pulse Ox 91% ; mlc 01:43 BP 134 / 59 (auto/); mlc 01:55 BP 136 / 65 (auto/); mlc 02:13 Temp 97.8(T); mlc 02:13 BP 127 / 60 (auto/); mar 30:15 Pulse 84 MON; Pulse Ox 90% ; mar 30:26 Pulse 82 MON; Pulse Ox 94% ; mlc 02:28 BP 141 / 66 (auto/); 02:57 BP 126 / 59 (auto/); mar 30:58 BP 134 / 62 (auto/); mar 30:58 Pulse 82 MON; Pulse Ox 91% ; mar 30:59 Pulse 84 MON; Resp 24; Pulse Ox 92% ; mar 31:28 BP 128 / 60 (auto/); mar 31:29 Pulse 92 MON; Pulse Ox 78% ; apr 16:42 BP 122 / 58; Pulse 97; Resp 20; Temp 98.3; Pulse Ox 93% ; mv5 05/16 20:20 Body Mass Index 25.61 (63.50 kg, 157.48 cm) jacqueline 05/16 20:20 RN AWARE OF O2 jacqueline MDM: 20:42 NS 0.9% 1000 ml IV at bolus once ordered. mm11 20:42 Ondansetron 4 mg IVP once ordered. mm11 20:42 morphine 4 mg IVP every 30 minutes; Document pain score/vitals after each dose (Hold if mm11 SBP < 90mmHg) x2 ordered. 20:42 -Blood Culture (Adults Only), peripheral from different site, or from device/port/PICC mm11 etc. if present ordered. 20:42 Preschool Aide/Pulse Ox/q 15 min VS ordered. mm11 20:42 IV Saline Lock ordered. mm11 20:42 Undress patient appropriately for examination ordered. mm11 20:43 Amylase Ordered. EDMS 20:43 Basic Metabolic Profile Ordered. EDMS 20:44 CBC with Diff Ordered. EDMS 20:44 Cardiac Injury Profile Ordered. EDMS 20:44 Lipase Ordered. EDMS 20:44 Liver Profile Ordered. EDMS 20:44 Troponin Ordered. EDMS 20:44 -Blood Culture Ordered. EDMS 20:44 NOTHING BY MOUTH+DIET ordered. EDMS 20:44 Venous Blood Gas (large pea green tube on ice) Ordered. EDMS 20:44 Lactic Acid (Bunch tube on ice) Ordered. EDMS 20:48 -Blood Culture (Adults Only), peripheral from different site, or from device/port/PICC ml3 etc. if present complete. 20:50 BLOOD CULTURES Ordered. EDMS 21:03 Financial registration complete. gjb 21:05 [facility] Payment Agreement was scanned into [employer] and attached to record. gjb 21:41 Basic Metabolic Profile Reviewed. mm11 21:41 CBC with Diff Reviewed. mm11 21:41 Liver Profile Reviewed. mm11 21:41 Venous Blood Gas (large pea green tube on ice) Reviewed. mm11 21:41 Amylase Reviewed. mm11 21:41 Cardiac Injury Profile Reviewed. mm11 21:41 Lipase Reviewed. mm11 21:41 Troponin Reviewed. mm11 21:41 Lactic Acid (Bunch tube on ice) Reviewed. mm11 21:43 CT ABD & PELVIS: IV Contrast Only Ordered. EDMS 23:36 Gallbladder US Ordered. EDMS 02 01:39 CT ABD & PELVIS: IV Contrast Only Reviewed. mm11 01:39 Gallbladder US Reviewed. mm11 02:08 Furosemide 40 mg IVP once ordered. mm11 02:09 BED REQUEST+ADM ordered. EDMS 02:10 Chest, 1 View Ordered. EDMS 02:21 BNP Ordered. EDMS 02:40 CARDIAC INJURY PROFILE Ordered. EDMS 02:40 CARDIAC INJURY PROFILE Ordered. EDMS 02:40 CARDIAC INJURY PROFILE Ordered. EDMS 02:41 Admission / Observation Status ordered. EDMS 02:42 ECHOCARD,DOPPLER/COLOR FLOW ordered. EDMS 02:42 OTHER CUSTOM DIETS ordered. EDMS 02:43 ECG WITH READING ER PHYS+CARDIAG ordered. EDMS 03:14 Albuterol-Ipratropium 3 ml Inhalation once ordered. mm11 03:14 Call Respiratory ordered. mm11 03:14 Call Respiratory complete. ml3 19:31 COMPLETE BLOOD COUNT Ordered. EDMS 19:31 COMPLETE COMPHRENSIVE METABOLI Ordered. EDMS 05/18 15:29 Refusal of Services was scanned into [employer] and attached to record. gb 15:30 T-Sheet-- Draft Copy was scanned into [employer] and attached to record. gb 15:30 ECG/EKG was scanned into [employer] and attached to record. gb 15:30 Trend VS was scanned into [employer] and attached to record. gb 15:30 Other: VITAL SIGNS was scanned into [employer] and attached to record. gb 15:31 Radiology Report was scanned into [employer] and attached to record. gb Administered Medications: 05/16 21:00 Drug: NS 0.9% 1000 ml [sodium chloride 0.9 % intravenous solution] Route: IV; Rate: mlc bolus; Site: right forearm; 23:58 Follow up: IV Status: Completed infusion [facility] [place] 21:00 Drug: Ondansetron 4 mg [ondansetron HCl 2 mg/mL intravenous solution (2 mL)] Route: mlc IVP; Site: right forearm; 21:25 Follow up: Response: Nausea is decreased; No Adverse Reaction [facility] [place] 21:00 Drug: morphine 4 mg [morphine 4 mg/mL intravenous cartridge (1 mL)] Route: IVP; Site: mlc right forearm; 21:25 Follow up: BP 107 / 59; Pulse 82 bpm; Pain 8/10 Adult; Response: Pain is decreased [facility] [place] 05/17 02:28 Drug: Furosemide 40 mg [furosemide 10 mg/mL injection solution (4 mL)] Route: IVP; [facility] [place] Site: right forearm; 03:26 Drug: Albuterol-Ipratropium 3 ml [ipratropium-albuterol 0.5 mg-3 mg(2.5 mg base)/3 mL [facility] nebulization soln (3 mL)] Route: Inhalation; Signatures: Dispatcher [employer] EDMN Jana Santamaria RN RN kcs Jobson, Karen, RN RN Ly Stacy, Reg Reg Flavio Judge, Track Car Operator Unit ml3 Keith Maddox, DO mm11 Lindy Cerna, [employer] ar3 Lilian Mondragon RN RN [facility] [place] Annia Burton Jacob 6 The chart was reviewed and I authenticate all verbal orders and agree with the evaluation and treatment provided.Attachments: 05/16 21:05 [facility] Payment Agreement [facility] 15:30 T-Sheet-- Draft Copy 15:30 ECG/EKG Chart Complete MTDD
--- NOTE | 2016-05-20 12:22 | EDDOCDS ---
Nurse's Notes [facility] Name: Roberta Guerra Age: 70 yrs Sex: Female : 1945 Arrival Date: 05/16/2016 Time: 20:10 Bed Admit Hold Private MD: Diagnosis: Acute diastolic (congestive) heart failure;Hypoxemia;Abdominal and pelvic pain-Biliary Colic Presentation: 05/16 20:15 Presenting complaint: EMS states: abdominal pain for a few days. pt reports mlc constipation. pain rated 10/10. denies nausea/vomiting. pt states her primary provider is supposed to "run tests on kidneys". Adult Sepsis Screening: The patient does not have new or worsening altered mentation. Patient has a respiratory rate of greater than or equal to 22 (1 point). Systolic blood pressure is greater than 100. Patient has a qSOFA score of 1- Negative Sepsis Screen. Suicide/Homicide risk assessment- the patient denies having any suicidal and/or homicidal ideations and does not present with any other emotional, behavioral or mental health complaints. Status: Patient is not a ramp service man or dependent. Transition of care: patient was not received from another setting of care. 20:15 Acuity: DELISA Level 3 [facility] 20:15 Method Of Arrival: Ambulance [facility] Triage Assessment: 20:23 General: Appears uncomfortable, Behavior is anxious, cooperative. Pain: Location: [facility] abdomen Pain currently is 10 out of 10 on a pain scale. The patient is triaged at the bedside. See Assessment in Nurses Notes section of ED record. Neurological: Level of Consciousness is awake, alert, obeys commands, Oriented to person, place, time. Cardiovascular: Heart tones S1 S2 present Rhythm is regular Chest pain is denied. Respiratory: Airway is patent Respiratory effort is labored, Respiratory pattern is tachypnea Breath sounds are diminished in left posterior lower lobe and right posterior lower lobe Breath sounds with wheezes bilaterally. GI: Abdomen is non- distended Bowel sounds present X 4 quads. Abd is tender to palpation X 4 quads. Reports constipation, Denies nausea, vomiting. Derm: Skin is normal. Historical: - Allergies: No known drug Allergies; - Home Meds: 1. amlodipine 10 mg Oral tab 1 tab once daily 2. atorvastatin 80 mg oral tab 1 tab once daily 3. Plavix 75 mg Oral tab 1 tab once daily 4. Klor-Con M20 20 mEq Oral TbTQ 1 tab once daily 5. magnesium oxide 400 mg Oral tab daily 6. Protonix 40 mg Oral TbEC 1 tab once daily 7. metoclopramide HCl 5 mg Oral tab 1 tab once daily 8. Combivent 18-103 mcg/actuation Inhl aero 2 puffs 4 times per day 9. aspirin 81 mg Oral chew 1 tab once daily 10. Anoro Ellipta 62.5-25 mcg/actuation inhalation dsdv 1 puff once daily 11. azelastine 0.15 % (205.5 mcg) nasal spry 1 spray 2 times per day - PMHx: COPD; Hypertension; CVA; CAD; Cancer, Uterine; - PSHx: Hysterectomy; Stents, Coronary; Knee surgery- Right; - Social history: Smoking status: Patient uses tobacco products, current every day smoker. No barriers to communication noted, The patient speaks fluent Sudanese. - Family history: Not pertinent, No immediate family members are acutely ill. - : The pt / caregiver states he / she is on anticoagulants: Plavix. Home medication list is obtained from the patient, [facility] import data. - Exposure Risk Screening:: None identified. Screenin:27 Screening information is obtained from the patient. Fall risk: No risks identified. [facility] Assistance ADL's: requires no assistance with activities of daily living. Abuse/DV Screen: The patient / caregiver reports he/she is: not in a situation that causes fear, pain or injury. Nutritional screening: decrease in appetite . Advance Directives: Currently, there is no health care proxy. There is no active DNR order. There is no Power of Locomotive Boilermaker. home support is adequate. Assessment: 20:25 General: see triage assessment. . [facility] 21:06 General: pt medicated per order, IV fluids infusing per order. GI: Abdomen is non- mlc distended Bowel sounds present X 4 quads. Derm: Bruising that is dark purple, on right low back. 21:24 Reassessment: Patient states feeling better. Patient states symptoms have improved. [facility] pain decreased to 8/10. pt states she does not need additional pain medication at this time. . General: Appears in no apparent distress, comfortable. 22:21 Reassessment: Patient appears in no apparent distress at this time. pt returned from [facility], tolerated well. resp easy/unlabored. . 22:21 Cardiovascular: Edema is 1+ to left foot, left toes, right foot and right toes. mlc 23:05 General: Appears in no apparent distress, comfortable, to be sleeping. Respiratory: mlc Airway is patent Respiratory effort is even, unlabored, Respiratory pattern is regular. 23:58 Reassessment: Patient appears in no apparent distress at this time. pt offers no mlc complaints. resp easy/unlabored. . 05/17 01:20 General: Appears in no apparent distress, comfortable, to be sleeping. Respiratory: mlc Airway is patent Respiratory effort is even, unlabored, Respiratory pattern is regular. 02:14 Reassessment: pt reports that she does not wear oxygen at home, pt taken off NC. SPO2 mlc dropped to mid-70s. Dr. Maddox at bedside. Pt placed back on 3L NC. . 02:28 Reassessment: pt medicated per order. commode placed at bedside. Respiratory: Breath mlc sounds are diminished Breath sounds with wheezes. Vital Signs: 05/16 20:20 BP 116 / 57; Pulse 103; Resp 22; Temp 98.7(TE); Pulse Ox 87% on R/A; Weight 63.5 kg jacqueline (R); Height 5 ft. 2 in. (157.48 cm) (R); Pain 10/10; 20:23 Pulse Ox 95% on 3 lpm NC; mlc 20:43 BP 123 / 59 (auto/); mlc 20:44 Pulse 92 MON; Pulse Ox 97% ; mlc 20:58 BP 119 / 60 (auto/); mlc 21:05 Pulse 88 MON; Pulse Ox 92% ; mlc 21:13 BP 107 / 59 (auto/); mlc 21:14 Pulse 82 MON; Pulse Ox 93% ; mlc 21:25 BP 107 / 59; Pulse 82; Pain 8/10; mlc 21:28 BP 135 / 60 (auto/); mlc 21:29 Pulse 80 MON; Pulse Ox 93% ; mlc 21:43 BP 123 / 58 (auto/); mlc 21:43 Pulse 80 MON; Pulse Ox 92% ; mlc 21:58 BP 128 / 70 (auto/); mlc 21:59 Pulse 80 MON; Pulse Ox 93% ; mlc 22:13 BP 124 / 66 (auto/); mlc 22:17 Pulse 88 MON; Pulse Ox 91% ; mlc 22:28 BP 122 / 58 (auto/); mlc 22:29 Pulse 82 MON; Pulse Ox 92% ; mlc 22:43 BP 133 / 60 (auto/); mlc 22:44 Pulse 80 MON; Pulse Ox 93% ; mlc 22:58 BP 125 / 59 (auto/); mlc 22:59 Pulse 80 MON; Pulse Ox 93% ; mlc 23:13 BP 128 / 60 (auto/); mlc 23:14 Pulse 82 MON; Pulse Ox 93% ; mlc 23:28 BP 126 / 60 (auto/); mlc 23:29 Pulse 80 MON; Pulse Ox 92% ; mlc 23:43 BP 124 / 60 (auto/); mlc 23:44 Pulse 82 MON; Pulse Ox 93% ; mlc 23:58 BP 127 / 58 (auto/); mlc 05/17 00:13 BP 122 / 59 (auto/); mlc 00:15 Pulse 84 MON; Pulse Ox 90% ; mlc 00:28 BP 125 / 59 (auto/); mlc 00:29 Pulse 78 MON; Pulse Ox 90% ; mlc 00:43 BP 121 / 59 (auto/); mlc 00:44 Pulse 78 MON; Pulse Ox 91% ; mlc 00:58 BP 124 / 59 (auto/); mlc 00:59 Pulse 80 MON; Pulse Ox 90% ; mlc 01:13 BP 121 / 57 (auto/); mlc 01:19 Pulse 80 MON; Pulse Ox 90% ; mlc 01:28 BP 134 / 63 (auto/); mlc 01:29 Pulse 90 MON; Pulse Ox 91% ; mlc 01:43 BP 134 / 59 (auto/); mlc 01:55 BP 136 / 65 (auto/); mlc 02:13 Temp 97.8(T); mlc 02:13 BP 127 / 60 (auto/); mar 30:15 Pulse 84 MON; Pulse Ox 90% ; mar 30:26 Pulse 82 MON; Pulse Ox 94% ; mlc 02:28 BP 141 / 66 (auto/); mlc 02:57 BP 126 / 59 (auto/); mar 30:58 BP 134 / 62 (auto/); mar 30:58 Pulse 82 MON; Pulse Ox 91% ; mar 30:59 Pulse 84 MON; Resp 24; Pulse Ox 92% ; mar 31:28 BP 128 / 60 (auto/); mar 31:29 Pulse 92 MON; Pulse Ox 78% ; apr 16:42 BP 122 / 58; Pulse 97; Resp 20; Temp 98.3; Pulse Ox 93% ; mv5 05/16 20:20 Body Mass Index 25.61 (63.50 kg, 157.48 cm) jacqueline 05/16 20:20 RN AWARE OF O2 jacqueline Vitals: 20:23 Log In Time N/A - ambulance arrival. [facility] ED Course: 20:11 Patient visited by Flavio Judge, Precision Instrument Maker And Repairer. ml3 20:11 Patient moved to Waiting ml3 20:12 Lilian Mondragon,RN is Primary Nurse. ml3 20:12 Patient moved to 10 ml3 20:17 Triage Initiated mlc 20:20 Patient visited by Susan Young PCA. jacqueline 20:20 Pt greeted and oriented to ED. Patient advised of names of staff involved in care, jacqueline location of call [place], wait times and NPO status. Patient has correct armband on for positive identification. Placed in gown. Bed in low position. Call light in reach. Side rails up X2. air sampling and monitoring on. Pulse ox on. NIBP on. 20:21 Patient visited by Susan Young PCA. jacqueline 20:28 Patient visited by Lilian Mondragon RN. mlc 20:29 Clotilde Maddox DO is Attending Physician. mm11 20:29 Patient visited by Clotilde Maddox DO. mm11 20:41 Patient visited by Clotilde Maddox DO. mm11 20:47 Lactic Acid (Bunch tube on ice) Sent. mlc 20:47 Venous Blood Gas (large pea green tube on ice) Sent. mlc 20:47 -Blood Culture Sent. mlc 20:47 Amylase Sent. mlc 20:47 Basic Metabolic Profile Sent. mlc 20:47 CBC with Diff Sent. mlc 20:47 Cardiac Injury Profile Sent. mlc 20:47 Lipase Sent. mlc 20:47 Liver Profile Sent. mlc 20:47 Troponin Sent. [facility] 21:05 [facility] [place] Agreement was scanned into [employer] and attached to record. gjb 21:07 Patient visited by Lilian Mondragon RN. mlc 21:07 The patient / caregiver is instructed regarding the plan of care and ED course. mlc 21:07 Inserted saline lock: 20 gauge in right forearm and blood collected. The patient mlc tolerated the procedure well. 21:23 BLOOD CULTURES Sent. mlc 21:25 Patient visited by Lilian Mondragon RN. mlc 22:23 Patient visited by Lilian Mondragon,STEFFANIE. mlc 23:06 Patient visited by Lilian Mondragon RN. mlc 23:56 CT ABD & PELVIS: IV Contrast Only Returned. EDMS 23:58 Patient visited by Lilian Mondragon RN. mlc 05/17 00:08 Patient moved to Ultrasound hgl 00:14 Patient moved to 10 hgl 00:58 Patient visited by Susan Young PCA. jacqueline 01:22 Patient visited by Lilian Mondragon RN. mlc 01:29 Gallbladder US Returned. EDMS 01:49 Alfonso Banegas MD is Referral Physician. mm11 02:11 Kaleb Cunningham DO is Hospitalizing Provider. mm11 02:14 Patient visited by Lilian Mondragon RN. mlc 02:29 Patient visited by Lilian Mondragon RN. mlc 02:29 O2 via nasal cannula \\T\\ 3L/min. mlc 02:33 BNP Sent. mlc 02:45 Patient moved to Admit Hold ml3 02:50 Patient visited by Susan Young PCA. jacqueline 02:50 EKG done. (by ED staff). Reviewed by Clotilde Maddox DO. jacqueline 08:17 Primary Nurse role handed off by Lilian Mondragon RN ar3 08:39 Chest, 1 View Returned. EDMS 09:12 EKG-ADULT Returned. EDMS 15:47 ECHOCARD,DOPPLER/COLOR FLOW Returned. EDMS 18:10 Patient visited by Nette Rojas, Precision Instrument Maker And Repairer. jlm 18:10 Diet tray given. jl 05/18 15:29 Refusal of Services was scanned into [employer] and attached to record. gb 15:30 T-Sheet-- Draft Copy was scanned into [employer] and attached to record. gb 15:30 ECG/EKG was scanned into [employer] and attached to record. gb 15:30 Trend VS was scanned into [employer] and attached to record. gb 15:30 Other: VITAL SIGNS was scanned into [employer] and attached to record. gb 15:31 Radiology Report was scanned into [employer] and attached to record. gb Administered Medications: 05/16 21:00 Drug: NS 0.9% 1000 ml [sodium chloride 0.9 % intravenous solution] Route: IV; Rate: mlc bolus; Site: right forearm; 23:58 Follow up: IV Status: Completed infusion [facility] 21:00 Drug: Ondansetron 4 mg [ondansetron HCl 2 mg/mL intravenous solution (2 mL)] Route: mlc IVP; Site: right forearm; 21:25 Follow up: Response: Nausea is decreased; No Adverse Reaction [facility] 21:00 Drug: morphine 4 mg [morphine 4 mg/mL intravenous cartridge (1 mL)] Route: IVP; Site: mlc right forearm; 21:25 Follow up: BP 107 / 59; Pulse 82 bpm; Pain 8/10 Adult; Response: Pain is decreased [facility] 05/17 02:28 Drug: Furosemide 40 mg [furosemide 10 mg/mL injection solution (4 mL)] Route: IVP; [facility] Site: right forearm; 03:26 Drug: Albuterol-Ipratropium 3 ml [ipratropium-albuterol 0.5 mg-3 mg(2.5 mg base)/3 mL [facility] nebulization soln (3 mL)] Route: Inhalation; Attachments: 05/18 15:29 Refusal of Services 15:30 Trend VS RT: 05/17 03:27 Initial Med Neb Given as ordered Patient was instructed and evaluated on procedure [id number] Patient tolerated procedure well without adverse effect. Respiratory: Airway is patent Respiratory effort is even, unlabored, Respiratory pattern is regular symmetrical, Breath sounds are diminished in right upper lobe, left upper lobe, right middle lobe, left lower lobe and right lower lobe Breath sounds with wheezes in right upper lobe, left upper lobe, right middle lobe, left lower lobe and right lower lobe at expiration. Order Results: Lab Order: -Blood Culture; SPEC'M 05/16/16 20:36 Test: BLOOD CULTURE; Value: No growth after 48 hours . All specimens observed; Status: F Test: BLOOD CULTURE; Value: for 5 days. Results final at that time.; Status: F Test: BLOOD CULTURE; Status: F Test: BLOOD CULTURE; Value: No growth after 24 hours . All specimens observed; Status: F Test: BLOOD CULTURE; Value: for 5 days. Results final at that time.; Status: F Test: BLOOD CULTURE; Value: No Growth after 72 hours. All specimens observed; Status: F Test: BLOOD CULTURE; Value: for 7 days. Results final at that time.; Status: F Lab Order: Amylase; SPEC'M 05/16/16 20:36 Test: AMYLASE; Value: 73; Range: 25-115; Units: U/L; Status: F Lab Order: Basic Metabolic Profile; [facility] 05/16/16 20:36 Test: GLUCOSE, FASTING; Value: 116; Range: 83-110; Abnormal: Above high normal; Units: MG/DL; Status: F Test: BLOOD UREA NITROGEN; Value: 17; Range: 7-18; Units: MG/DL; Status: F Test: CREATININE FOR GFR; Value: 0.78; Range: 0.55-1.02; Units: MG/DL; Status: F Test: GLOMERULAR FILTRATION RATE; Value: > 60.0; Range: >39; Status: F Test: SODIUM LEVEL; Value: 136; Range: 136-145; Units: MEQ/L; Status: F Test: POTASSIUM SERUM; Value: 4.4; Range: 3.5-5.1; Units: MEQ/L; Status: F Test: CHLORIDE LEVEL; Value: 93; Range: 98-107; Abnormal: Below low normal; Units: MEQ/L; Status: F Test: CARBON DIOXIDE LEVEL; Value: 36; Range: 21-32; Abnormal: Above high normal; Units: MEQ/L; Status: F Test: ANION GAP; Value: 7; Range: 8-16; Abnormal: Below low normal; Units: MEQ/L; Status: F Test: CALCIUM LEVEL; Value: 8.9; Range: 8.8-10.2; Units: MG/DL; Status: F Test Note: ; Units are mL/min/1.73 m2 Chronic Kidney Disease Staging per NKF: Stage I & II GFR >=60 Normal to Mildly Decreased Stage III GFR 30-59 Moderately Decreased Stage IV GFR 15-29 Severely Decreased Stage V GFR <15 Very Little GFR Left ESRD GFR <[address] Lab Order: [facility] Diff[facility] 20:36 Test: WHITE BLOOD COUNT; Value: 5.8; Range: 4.0-10.0; Units: K/mm3; Status: F Test: RED BLOOD COUNT; Value: 4.66; Range: 4.00-5.40; Units: M/mm3; Status: F Test: HEMOGLOBIN; Value: 12.4; Range: 12.0-16.0; Units: g/dl; Status: F Test: HEMATOCRIT; Value: 39.2; Range: 36.0-47.0; Units: %; Status: F Test: MEAN CORPUSCULAR VOLUME; Value: 84.2; Range: 80.0-96.0; Units: fl; Status: F Test: MEAN CORPUSCULAR HEMOGLOBIN; Value: 26.7; Range: 27.0-33.0; Abnormal: Below low normal; Units: pg; Status: F Test: MEAN CORPUSCULAR HGB CONC; Value: 31.7; Range: 32.0-36.5; Abnormal: Below low normal; Units: g/dl; Status: F Test: RED CELL DISTRIBUTION WIDTH; Value: 15.5; Range: 11.5-14.5; Abnormal: Above high normal; Units: %; Status: F Test: PLATELET COUNT, AUTOMATED; Value: 281; Range: 150-450; Units: k/mm3; Status: F Test: NEUTROPHILS %; Value: 66.6; Range: 36.0-66.0; Abnormal: Above high normal; Units: %; Status: F Test: LYMPH %; Value: 20.3; Range: 24.0-44.0; Abnormal: Below low normal; Units: %; Status: F Test: MONO %; Value: 9.5; Range: 0.0-5.0; Abnormal: Above high normal; Units: %; Status: F Test: EOS %; Value: 1.5; Range: 0.0-3.0; Units: %; Status: F Test: BASO %; Value: 0.4; Range: 0.0-1.0; Units: %; Status: F Test: LARGE UNSTAINED CELL %; Value: 1.7; Range: 0.0-4.0; Units: %; Status: F Test: NEUTROPHILS #; Value: 3.9; Range: 1.8-7.7; Units: K/mm3; Status: F Test: LYMPH #; Value: 1.3; Range: 1.5-4.5; Abnormal: Below low normal; Units: K/mm3; Status: F Test: MONO #; Value: 0.6; Range: 0.0-0.8; Units: K/mm3; Status: F Test: EOS #; Value: 0.1; Range: 0.0-0.50; Units: K/mm3; Status: F Test: BASO #; Value: 0.0; Range: 0.0-0.2; Units: K/mm3; Status: F Test: LARGE UNSTAINED CELL #; Value: 0.1; Range: 0.0-0.4; Units: K/mm3; Status: F Lab Order: Cardiac Injury Profile; [facility] 05/16/16 20:36 Test: CPK CREATINE PHOSPHOKINASE; Value: 118; Range: 26-192; Units: U/L; Status: F Test: CK-MB VALUE MASS; Value: 2.8; Range: 0.0-3.6; Units: NG/ML; Status: F Test: MB/CK RELATIVE INDEX; Value: 2.37; Range: < OR =4; Status: F Test Note: ; DIAGNOSIS CRITERIA MMB ng/ml Relative Index (RI) NON-AMI < or = 5 N/A BUNCH ZONE > 5 < or = 4 AMI > 5 > 4 Lab Order: Lipase; [facility] 05/16/16 20:36 Test: LIPASE; Value: 106; Range: 73-393; Units: U/L; Status: F Lab Order: Liver Profile; [facility] 05/16/16 20:36 Test: AST/SGOT; Value: 24; Range: 15-37; Units: U/L; Status: F Test: ALT/SGPT; Value: 21; Range: 12-78; Units: U/L; Status: F Test: ALKALINE PHOSPHATASE; Value: 94; Range: 45-117; Units: U/L; Status: F Test: BILIRUBIN,TOTAL; Value: 0.6; Range: 0.2-1.0; Units: MG/DL; Status: F Test: BILIRUBIN,DIRECT; Value: 0.2; Range: 0.0-0.2; Units: MG/DL; Status: F Test: TOTAL PROTEIN; Value: 6.7; Range: 6.4-8.2; Units: GM/DL; Status: F Test: ALBUMIN; Value: 3.3; Range: 3.2-5.2; Units: GM/DL; Status: F Test: ALBUMIN/GLOBULIN RATIO; Value: 0.97; Range: 1.00-1.93; Abnormal: Below low normal; Status: F Lab Order: Troponin; [facility] 05/16/16 20:36 Test: TROPONIN I; Value: 0.02; Range: < 0.10; Units: NG/ML; Status: F Test Note: ; Troponin I Reference Interval for [employer] [place] LOCI: 99th Percentile= 0.00-0.045 ng/ml Risk Stratification: <= 0.10 ng/ml Decreased Risk for Adverse Clinical Events. 0.10-1.50 ng/ml Increased Risk for Adverse Clinical Events. Evaluation of additional criterion and/or repeat testing in 2-6 hours is suggested to rule out myocardial damage. >= 1.50 ng/ml Indicative of Myocardial Injury. Lab Order: Venous Blood Gas (large pea green tube on ice); [facility] 05/16/16 20:36 Test: VENOUS PH; Value: 7.374; Range: 7.330-7.430; Units: UNITS; Status: F Test: VENOUS PARTIAL PRESSURE CO2; Value: 60.9; Range: 38.0-50.0; Abnormal: Above high normal; Units: mmHg; Status: F Test: VENOUS PARTIAL PRESSURE O2; Value: 43.3; Range: 30.0-50.0; Units: mmHg; Status: F Test: VENOUS TOTAL CO2; Value: 36.6; Range: 24.0-28.0; Abnormal: Above high normal; Units: MEQ/L; Status: F Test: VENOUS HCO3; Value: 34.7; Range: 23.0-27.0; Abnormal: Above high normal; Units: MEQ/L; Status: F Test: VENOUS BASE EXCESS; Value: 7.5; Range: -2.0-2.0; Abnormal: Above high normal; Status: F Test: VENOUS STANDARD HCO3; Value: 30.8; Units: MEQ/L; Status: F Test: VENOUS O2 SATURATION; Value: 77.9; Range: 60.0-80.0; Units: %; Status: F Lab Order: Lactic Acid (Bunch tube on ice); [facility] 05/16/16 20:36 Test: LACTIC ACID SEPSIS PROTOCOL; Value: 1.0; Range: 0.4-2.0; Units: MMOL/L; Status: F Lab Order: BLOOD CULTURES; [facility] 05/16/16 21:18 Test: BLOOD CULTURE; Value: No growth after 48 hours . All specimens observed; Status: F Test: BLOOD CULTURE; Value: for 5 days. Results final at that time.; Status: F Test: BLOOD CULTURE; Status: F Test: BLOOD CULTURE; Value: No growth after 24 hours . All specimens observed; Status: F Test: BLOOD CULTURE; Value: for 5 days. Results final at that time.; Status: F Test: BLOOD CULTURE; Value: No Growth after 72 hours. All specimens observed; Status: F Test: BLOOD CULTURE; Value: for 7 days. Results final at that time.; Status: F Lab Order: BNP; [facility] 05/17/16 02:55 Test: BRAIN NATRIURETIC PEPTIDE; Value: 1050; Range: <100; Abnormal: Above high normal; Units: PG/ML; Status: F Lab Order: CARDIAC INJURY PROFILE; [facility] 05/17/16 02:55 Test: CPK CREATINE PHOSPHOKINASE; Value: 91; Range: 26-192; Units: U/L; Status: F Test: CK-MB VALUE MASS; Value: 2.5; Range: 0.0-3.6; Units: NG/ML; Status: F Test: MB/CK RELATIVE INDEX; Value: 2.74; Range: < OR =4; Status: F Test Note: ; DIAGNOSIS CRITERIA MMB ng/ml Relative Index (RI) NON-AMI < or = 5 N/A BUNCH ZONE > 5 < or = 4 AMI > 5 > 4 Lab Order: CARDIAC INJURY PROFILE; [facility] 05/17/16 10:11 Test: CPK CREATINE PHOSPHOKINASE; Value: 74; Range: 26-192; Units: U/L; Status: F Test: CK-MB VALUE MASS; Value: 1.9; Range: 0.0-3.6; Units: NG/ML; Status: F Test: MB/CK RELATIVE INDEX; Value: 2.56; Range: < OR =4; Status: F Test Note: ; DIAGNOSIS CRITERIA MMB ng/ml Relative Index (RI) NON-AMI < or = 5 N/A BUNCH ZONE > 5 < or = 4 AMI > 5 > 4 Lab Order: CARDIAC INJURY PROFILE; SPEC'05/17/16 18:24 Test: CPK CREATINE PHOSPHOKINASE; Value: 83; Range: 26-192; Units: U/L; Status: F Test: CK-MB VALUE MASS; Value: 2.0; Range: 0.0-3.6; Units: NG/ML; Status: F Test: MB/CK RELATIVE INDEX; Value: 2.40; Range: < OR =4; Status: F Test Note: ; DIAGNOSIS CRITERIA MMB ng/ml Relative Index (RI) NON-AMI < or = 5 N/A BUNCH ZONE > 5 < or = 4 AMI > 5 > 4 Lab Order: COMPLETE BLOOD COUNT; SPEC'05/18/16 06:14 Test: WHITE BLOOD COUNT; Value: 4.7; Range: 4.0-10.0; Units: K/mm3; Status: F Test: RED BLOOD COUNT; Value: 4.29; Range: 4.00-5.40; Units: M/mm3; Status: F Test: HEMOGLOBIN; Value: 11.4; Range: 12.0-16.0; Abnormal: Below low normal; Units: g/dl; Status: F Test: HEMATOCRIT; Value: 36.0; Range: 36.0-47.0; Units: %; Status: F Test: MEAN CORPUSCULAR VOLUME; Value: 83.9; Range: 80.0-96.0; Units: fl; Status: F Test: MEAN CORPUSCULAR HEMOGLOBIN; Value: 26.6; Range: 27.0-33.0; Abnormal: Below low normal; Units: pg; Status: F Test: MEAN CORPUSCULAR HGB CONC; Value: 31.7; Range: 32.0-36.5; Abnormal: Below low normal; Units: g/dl; Status: F Test: RED CELL DISTRIBUTION WIDTH; Value: 15.6; Range: 11.5-14.5; Abnormal: Above high normal; Units: %; Status: F Test: PLATELET COUNT, AUTOMATED; Value: 244; Range: 150-450; Units: k/mm3; Status: F Lab Order: COMPLETE COMPHRENSIVE METABOLI; SPEC05/18/16 06:14 Test: GLUCOSE, FASTING; Value: 130; Range: 83-110; Abnormal: Above high normal; Units: MG/DL; Status: F Test: BLOOD UREA NITROGEN; Value: 18; Range: 7-18; Units: MG/DL; Status: F Test: CREATININE FOR GFR; Value: 0.87; Range: 0.55-1.02; Units: MG/DL; Status: F Test: GLOMERULAR FILTRATION RATE; Value: > 60.0; Range: >39; Status: F Test: SODIUM LEVEL; Value: 139; Range: 136-145; Units: MEQ/L; Status: F Test: POTASSIUM SERUM; Value: 3.4; Range: 3.5-5.1; Units: MEQ/L; Status: F Test: CHLORIDE LEVEL; Value: 90; Range: 98-107; Abnormal: Below low normal; Units: MEQ/L; Status: F Test: CARBON DIOXIDE LEVEL; Value: 41; Range: 21-32; Abnormal: Above high normal; Units: MEQ/L; Status: F Test: ANION GAP; Value: 8; Range: 8-16; Units: MEQ/L; Status: F Test: CALCIUM LEVEL; Value: 9.0; Range: 8.8-10.2; Units: MG/DL; Status: F Test: AST/SGOT; Value: 14; Range: 15-37; Abnormal: Below low normal; Units: U/L; Status: F Test: ALT/SGPT; Value: 17; Range: 12-78; Units: U/L; Status: F Test: ALKALINE PHOSPHATASE; Value: 79; Range: 45-117; Units: U/L; Status: F Test: BILIRUBIN,TOTAL; Value: 0.4; Range: 0.2-1.0; Units: MG/DL; Status: F Test: TOTAL PROTEIN; Value: 6.4; Range: 6.4-8.2; Units: GM/DL; Status: F Test: ALBUMIN; Value: 3.0; Range: 3.2-5.2; Abnormal: Below low normal; Units: GM/DL; Status: F Test: ALBUMIN/GLOBULIN RATIO; Value: 0.88; Range: 1.00-1.93; Abnormal: Below low normal; Status: F Test Note: ; Units are mL/min/1.73 m2 Chronic Kidney Disease Staging per NKF: Stage I & II GFR >=60 Normal to Mildly Decreased Stage III GFR 30-59 Moderately Decreased Stage IV GFR 15-29 Severely Decreased Stage V GFR <15 Very Little GFR Left ESRD GFR <[address] Radiology Order: CT ABD & PELVIS: IV Contrast Only Test: CT ABD & PELVIS: IV Contrast Only REASON FOR EXAMINATION: Abdomen Pain; ; CLINICAL HISTORY: Abdominal pain.; ; TECHNIQUE: Multiple axial CT images were obtained through the abdomen and pelvis after administratio; n of intravenous contrast material. Oral contrast was not administered.; ; COMMENTS:; Scattered severe bilateral emphysema is seen. Moderate sized bilateral pleural effusions are present.; Bibasilar consolidations are present compatible with atelectasis versus pneumonia. Coronary calcif; ication is seen with scarring seen in the right lobe of the lingula.; ; The liver is of uniform attenuation without mass or defect. There is no intra or extrahepatic biliar; y ductal dilatation. The spleen is normal. There is apparent gallbladder wall thickening. There is; pericholecystic fluid. A 1 mm calcified gallstone is seen. The findings are suspicious for cholecy; stitis. Clinical correlation is recommended to consider follow up with right upper quadrant ultrasou; nd. The pancreas is of normal contour and attenuation characteristics. There is no evidence of adre; nal mass.; ; Both kidneys are lobulated. Several bilateral cortical renal cysts are present. Status post complet; e hysterectomy.; ; No evidence for appendicitis. There is no bowel wall thickening. No evidence for small or large bow; el obstruction. There is no evidence of abdominal ascites or lymphadenopathy.; ; There is no evidence of intrinsic or extrinsic bladder mass. There is no pelvic ascites or lymphaden; opathy.; ; Images of the lung bases show no evidence of pleural or parenchymal mass. There are no pleural effus; ions. The bony structures are free of lytic or blastic lesions.; ; IMPRESSION:; 1. Findings suspicious for acute cholecystitis. Consider correlation with right upper quadrant ultra; sound.; 2. Bilateral pleural effusions, emphysema.; 3. Several small bilateral cortical renal cysts.; ; ; Thank you for your kind referral of this patient. We appreciate the opportunity to participate in [facility]; s patient's care.; ; Radiology Order: Gallbladder US Test: Gallbladder US REASON FOR EXAMINATION: Biliary Colic; ; CLINICAL HISTORY: Abdominal pain.; TECHNIQUE: Realtime sonographic images were obtained in multiple projections.; COMMENTS:; The liver is of normal size, parenchyma demonstrates normal echogenicity. No discrete hepatic mass is; seen.; There is no intra or extrahepatic biliary ductal dilatation. CBD measures 6.6mm. The gallbladder is d; iffusely thickened without evidence of calculi. The gallbladder wall is not thickened and there is no; pericholecystic fluid. There is no abdominal ascites.; The right kidney measures 9.3 x3.8 cm , free of hydronephrosis. Multiple right renal cortical cysts; with the largest in the upper pole measuring 1.6 cm.; Right pleural effusion.; IMPRESSION:; Diffuse thickening of the lower of the gallbladder suspicious for an inflammatory pathology.; No cholelithiasis.; Thank you for your kind referral of this patient.; ; Radiology Order: Chest, 1 View Test: Chest, 1 View REASON FOR EXAMINATION: Cough; Clinical: Cough.; ; Comparison: 09/18/2015.; ; Findings:; Stable cardiomegaly is appreciated along with evidence to suggest pulmonary; vascular congestion and interstitial edema. Layering pleural effusions and right; basilar atelectasis suggested.; ; Impression:; Mild cardiomegaly with pulmonary vascular congestion and interstitial edema; including suspected layering effusions and right basilar atelectasis.; ; ; Signed by; Kamron Kaufman MD 05/17/2016 08:22 A; Radiology Order: ECHOCARD,DOPPLER/COLOR FLOW Test: ECHOCARD,DOPPLER/COLOR FLOW DATE OF PROCEDURE: 05/17/2016; ; AGE: 70; GENDER: Female.; HEIGHT: 62 inches.; WEIGHT: 138 pounds.; BODY SURFACE AREA: 1.64 sq m; ; INPATIENT: Currently on holding area in the emergency room.; ; REFERRING PHYSICIAN: Dr. Kaleb Cunningham; ; INDICATION: CHF.; ; MEASUREMENTS:; ; 2D MEASUREMENTS:; RV: 3.6 cm; LV: 4.8 cm; Septum: 1.1 cm; Posterior wall: 1.1 cm; Right ventricular free wall: 0.8 cm; Aortic root: 2.7 cm; LA: 4.3 cm; LVEF: 75%.; ; DOPPLER MEASUREMENTS:; AV: 1.8 m/s; LVOT: 1.2 m/s; LVOT diameter: 1.8; MV-E: 91 A: 140 E/A ratio: 0.7; Early mitral deceleration time: 277 ms; E prime: 6.3 A prime: 7.4 E/E prime ratio: 14.4; PV: 1.0 m/s; Pulmonary artery acceleration time: 103 ms; RVSP: 51-56 mmHg; IVC: 2.1 cm; ; COMMENTS:; Normal sinus rhythm without intraventricular conduction disturbance. Somewhat; technically challenging study in light of the patient's body habitus, but; diagnostically useful information was still obtained.; ; At least mildly dilated left atrium, but normal left ventricular size. Normal; right ventricular size with right atrium upper limits of normal and slightly; dilated IVC. LV wall thickness was normal. Right ventricular free wall; thickness was slightly increased. On real-time imaging from the parasternal and; apical projections, the proximal portion of the inferoseptal wall was; hypokinetic, but other wall motion was hyperkinetic. Mild-moderate mitral; annular thickening, but normal leaflet thickness and excursion with no posterior; systolic buckling. Three equal size, slightly thickened aortic cusp edges, but; adequate cusp separation. Normal aortic root size. No apparent intracardiac; mass or pericardial effusion.; ; Color flow Doppler study taken from the parasternal and apical projections showed; mild-moderate mitral with mild tricuspid, but no aortic insufficiency.; ; Guided continuous wave Doppler of her aortic valve showed a normal peak systolic; velocity against left ventricular (LV) outflow tract obstruction.; ; Pulsed and continuous wave Doppler of her LV inflow tract taken from the apical; four-chamber projection showed normal diastolic filling velocities against mitral; stenosis. There was more prominent late diastolic/atrial dependent filling; pattern. Diastolic dysfunction was further confirmed by a prolonged early mitral; deceleration time and tissue Doppler of her mitral annulus. Her current; estimated mean left atrial pressure was upper limits of normal to slightly; elevated at 14 mmHg.; ; Pulsed and continuous wave Doppler of her pulmonary trunk showed a normal peak; systolic velocity against right ventricular (RV) outflow tract obstruction. Her; pulmonary artery acceleration time was abbreviated suggestive of a slightly; elevated pulmonary vascular resistance.; ; Guided continuous wave Doppler of her tricuspid valve allowed our estimation of; her right ventricular systolic pressure (at least moderately severely increased).; Her inferior vena cava was at least mildly dilated with reduced respiratory; collapse suggestive of an elevated central venous pressure of 15-20 mmHg.; ; CONCLUSIONS:; Normal left ventricular size and wall thickness with localized proximal; inferoseptal hypokinesis, yet hyperkinetic global resting left ventricular; systolic function.; ; Mildly dilated left atrium with Doppler evidence of an impairment of left; ventricular (LV) diastolic function, but currently estimated mean left atrial; pressure only upper limits of normal to slightly elevated.; ; Normal right ventricular size with borderline right ventricular free wall; hypertrophy and Doppler evidence of moderately severe pulmonary hypertension.; ; Slightly dilated right atrium and IVC with reduced respiratory collapse; consistent with right heart failure.; ; Mild mitral annular calcification without inflow tract obstruction but mild to; moderate insufficiency. Aortic valvular sclerosis without functional valvular; abnormality.; Radiology Order: EKG-ADULT Test: EKG-ADULT REASON FOR EXAMINATION: Shortness of Breath; Stationary ECG Study; [facility] - ED; ; Test Date: 2016-05-17; Pat Name: ROBERTA GUERRA Department:; Room: [place] [address]; Gender: F Membership Director: luke; : 1945 Requested By: CLOTILDE De Santiago; Order Number: [id number] Reading MD: Chas Hanna; Measurements; Intervals [place]; Rate: 87 P: 32; AR: 187 QRS: -57; QRSD: 81 T: 61; QT: 318; QTc: 385; Interpretive Statements; SINUS RHYTHM WITH OCCASIONAL ECTOPIC PREMATURE COMPLEXES; LEFT AXIS DEVIATION; INC. RBBB; ANTEROSEPTAL MYOCARDIAL INFARCTION, OF INDETERMINATE AGE; NONSPECIFIC ST DEPRESSION; HAYDENILKAR TO 07/02/15; ; Electronically Signed On 05-17-2016 8:41:01 EST by Chas Hanna; Outcome: 01:49 Discharge ordered by Provider. mm11 02:11 Decision to Hospitalize by Provider. 05/18 11:21 Patient left the ED. kcs Signatures: Dispatcher [employer] Jana Meehan RN RN kcs Newman, Jill New, RN RN jan Barnhardt, Gloria, Reg Reg Flavio Christensen, Precision Instrument Maker And Repairer Unit ml3 Clotilde Maddox DO DO mm11 Lindy Cerna, GUEST HISTORY CLERK GUEST HISTORY CLERK ar3 Susan Young, GUEST HISTORY CLERK GUEST HISTORY CLERK jacqueline Alexey,Fantasma jh6 Ly, Phil hgl Nette Rojas, [employer]ision Instrument Maker And Repairer Unit Lilian RalphRN RN Annia Daily MeganRN RN mv5 Corrections: (The following items were deleted from the chart) 05/16 22:23 21:06 General: pt medicated per order, IV fluids infusing per order. [facility] Chart Complete MTDD
--- NOTE | 2016-05-20 12:22 | EDDOCDS ---
Physician Documentation [facility] Name: Roberta Welch Age: 70 yrs Sex: Female : 1945 Arrival Date: 05/16/2016 Time: 20:10 Bed Admit Hold Private MD: Disposition: 05/17/16 02:11 Hospitalization ordered by Kaleb Cunningham for Inpatient Admission. Preliminary diagnosis are Acute diastolic (congestive) heart failure, Hypoxemia, Abdominal and pelvic pain - Biliary Colic. - Bed requested for Admit. - Status is Inpatient Admission. kcs - Condition is Stable. - Problem is an acute exacerbation. - Symptoms have improved. Historical: - Allergies: No known drug Allergies; - Home Meds: 1. amlodipine 10 mg Oral tab 1 tab once daily 2. atorvastatin 80 mg oral tab 1 tab once daily 3. Plavix 75 mg Oral tab 1 tab once daily 4. Klor-Con M20 20 mEq Oral TbTQ 1 tab once daily 5. magnesium oxide 400 mg Oral tab daily 6. Protonix 40 mg Oral TbEC 1 tab once daily 7. metoclopramide HCl 5 mg Oral tab 1 tab once daily 8. Combivent 18-103 mcg/actuation Inhl aero 2 puffs 4 times per day 9. aspirin 81 mg Oral chew 1 tab once daily 10. Anoro Ellipta 62.5-25 mcg/actuation inhalation dsdv 1 puff once daily 11. azelastine 0.15 % (205.5 mcg) nasal spry 1 spray 2 times per day - PMHx: COPD; Hypertension; CVA; CAD; Cancer, Uterine; - PSHx: Hysterectomy; Stents, Coronary; Knee surgery- Right; - Social history: Smoking status: Patient uses tobacco products, current every day smoker. No barriers to communication noted, The patient speaks fluent Maltese. - Family history: Not pertinent, No immediate family members are acutely ill. - : The pt / caregiver states he / she is on anticoagulants: Plavix. Home medication list is obtained from the patient, [employer] import data. - Exposure Risk Screening:: None identified. Vital Signs: 05/16 20:20 BP 116 / 57; Pulse 103; Resp 22; Temp 98.7(TE); Pulse Ox 87% on R/A; Weight 63.5 kg / jacqueline 139.99 lbs (R); Height 5 ft. 2 in. (157.48 cm) (R); Pain 10/10; 20:23 Pulse Ox 95% on 3 lpm NC; mlc 20:43 BP 123 / 59 (auto/); mlc 20:44 Pulse 92 MON; Pulse Ox 97% ; mlc 20:58 BP 119 / 60 (auto/); mlc 21:05 Pulse 88 MON; Pulse Ox 92% ; mlc 21:13 BP 107 / 59 (auto/); mlc 21:14 Pulse 82 MON; Pulse Ox 93% ; mlc 21:25 BP 107 / 59; Pulse 82; Pain 8/10; mlc 21:28 BP 135 / 60 (auto/); mlc 21:29 Pulse 80 MON; Pulse Ox 93% ; mlc 21:43 BP 123 / 58 (auto/); mlc 21:43 Pulse 80 MON; Pulse Ox 92% ; mlc 21:58 BP 128 / 70 (auto/); mlc 21:59 Pulse 80 MON; Pulse Ox 93% ; mlc 22:13 BP 124 / 66 (auto/); mlc 22:17 Pulse 88 MON; Pulse Ox 91% ; mlc 22:28 BP 122 / 58 (auto/); mlc 22:29 Pulse 82 MON; Pulse Ox 92% ; mlc 22:43 BP 133 / 60 (auto/); mlc 22:44 Pulse 80 MON; Pulse Ox 93% ; mlc 22:58 BP 125 / 59 (auto/); mlc 22:59 Pulse 80 MON; Pulse Ox 93% ; mlc 23:13 BP 128 / 60 (auto/); mlc 23:14 Pulse 82 MON; Pulse Ox 93% ; mlc 23:28 BP 126 / 60 (auto/); mlc 23:29 Pulse 80 MON; Pulse Ox 92% ; mlc 23:43 BP 124 / 60 (auto/); mlc 23:44 Pulse 82 MON; Pulse Ox 93% ; mlc 23:58 BP 127 / 58 (auto/); mlc 05/17 00:13 BP 122 / 59 (auto/); mlc 00:15 Pulse 84 MON; Pulse Ox 90% ; mlc 00:28 BP 125 / 59 (auto/); mlc 00:29 Pulse 78 MON; Pulse Ox 90% ; mlc 00:43 BP 121 / 59 (auto/); mlc 00:44 Pulse 78 MON; Pulse Ox 91% ; mlc 00:58 BP 124 / 59 (auto/); mlc 00:59 Pulse 80 MON; Pulse Ox 90% ; mlc 01:13 BP 121 / 57 (auto/); mlc 01:19 Pulse 80 MON; Pulse Ox 90% ; mlc 01:28 BP 134 / 63 (auto/); mlc 01:29 Pulse 90 MON; Pulse Ox 91% ; mlc 01:43 BP 134 / 59 (auto/); mlc 01:55 BP 136 / 65 (auto/); mlc 02:13 Temp 97.8(T); mlc 02:13 BP 127 / 60 (auto/); mar 30:15 Pulse 84 MON; Pulse Ox 90% ; mar 30:26 Pulse 82 MON; Pulse Ox 94% ; mlc 02:28 BP 141 / 66 (auto/); 02:57 BP 126 / 59 (auto/); mar 30:58 BP 134 / 62 (auto/); mar 30:58 Pulse 82 MON; Pulse Ox 91% ; mar 30:59 Pulse 84 MON; Resp 24; Pulse Ox 92% ; mar 31:28 BP 128 / 60 (auto/); mar 31:29 Pulse 92 MON; Pulse Ox 78% ; apr 16:42 BP 122 / 58; Pulse 97; Resp 20; Temp 98.3; Pulse Ox 93% ; mv5 05/16 20:20 Body Mass Index 25.61 (63.50 kg, 157.48 cm) jacqueline 05/16 20:20 RN AWARE OF O2 jacqueline MDM: 20:42 NS 0.9% 1000 ml IV at bolus once ordered. mm11 20:42 Ondansetron 4 mg IVP once ordered. mm11 20:42 morphine 4 mg IVP every 30 minutes; Document pain score/vitals after each dose (Hold if mm11 SBP < 90mmHg) x2 ordered. 20:42 -Blood Culture (Adults Only), peripheral from different site, or from device/port/PICC mm11 etc. if present ordered. 20:42 Project Management Manager/Pulse Ox/q 15 min VS ordered. mm11 20:42 IV Saline Lock ordered. mm11 20:42 Undress patient appropriately for examination ordered. mm11 20:43 Amylase Ordered. EDMS 20:43 Basic Metabolic Profile Ordered. EDMS 20:44 CBC with Diff Ordered. EDMS 20:44 Cardiac Injury Profile Ordered. EDMS 20:44 Lipase Ordered. EDMS 20:44 Liver Profile Ordered. EDMS 20:44 Troponin Ordered. EDMS 20:44 -Blood Culture Ordered. EDMS 20:44 NOTHING BY MOUTH+DIET ordered. EDMS 20:44 Venous Blood Gas (large pea green tube on ice) Ordered. EDMS 20:44 Lactic Acid (Bunch tube on ice) Ordered. EDMS 20:48 -Blood Culture (Adults Only), peripheral from different site, or from device/port/PICC ml3 etc. if present complete. 20:50 BLOOD CULTURES Ordered. EDMS 21:03 Financial registration complete. gjb 21:05 [facility] Payment Agreement was scanned into [employer] and attached to record. gjb 21:41 Basic Metabolic Profile Reviewed. mm11 21:41 CBC with Diff Reviewed. mm11 21:41 Liver Profile Reviewed. mm11 21:41 Venous Blood Gas (large pea green tube on ice) Reviewed. mm11 21:41 Amylase Reviewed. mm11 21:41 Cardiac Injury Profile Reviewed. mm11 21:41 Lipase Reviewed. mm11 21:41 Troponin Reviewed. mm11 21:41 Lactic Acid (Bunch tube on ice) Reviewed. mm11 21:43 CT ABD & PELVIS: IV Contrast Only Ordered. EDMS 23:36 Gallbladder US Ordered. EDMS 02 01:39 CT ABD & PELVIS: IV Contrast Only Reviewed. mm11 01:39 Gallbladder US Reviewed. mm11 02:08 Furosemide 40 mg IVP once ordered. mm11 02:09 BED REQUEST+ADM ordered. EDMS 02:10 Chest, 1 View Ordered. EDMS 02:21 BNP Ordered. EDMS 02:40 CARDIAC INJURY PROFILE Ordered. EDMS 02:40 CARDIAC INJURY PROFILE Ordered. EDMS 02:40 CARDIAC INJURY PROFILE Ordered. EDMS 02:41 Admission / Observation Status ordered. EDMS 02:42 ECHOCARD,DOPPLER/COLOR FLOW ordered. EDMS 02:42 OTHER CUSTOM DIETS ordered. EDMS 02:43 ECG WITH READING ER PHYS+CARDIAG ordered. EDMS 03:14 Albuterol-Ipratropium 3 ml Inhalation once ordered. mm11 03:14 Call Respiratory ordered. mm11 03:14 Call Respiratory complete. ml3 19:31 COMPLETE BLOOD COUNT Ordered. EDMS 19:31 COMPLETE COMPHRENSIVE METABOLI Ordered. EDMS 05/18 15:29 Refusal of Services was scanned into [employer] and attached to record. gb 15:30 T-Sheet-- Draft Copy was scanned into [employer] and attached to record. gb 15:30 ECG/EKG was scanned into [employer] and attached to record. gb 15:30 Trend VS was scanned into [employer] and attached to record. gb 15:30 Other: VITAL SIGNS was scanned into [employer] and attached to record. gb 15:31 Radiology Report was scanned into [employer] and attached to record. gb Administered Medications: 05/16 21:00 Drug: NS 0.9% 1000 ml [sodium chloride 0.9 % intravenous solution] Route: IV; Rate: mlc bolus; Site: right forearm; 23:58 Follow up: IV Status: [place] [facility] [place] Drug: Ondansetron 4 mg [ondansetron HCl 2 mg/mL intravenous solution (2 mL)] Route: mlc IVP; Site: right forearm; 21:25 Follow up: Response: Nausea is decreased; No Adverse Reaction [facility] [place] [place]:00 Drug: morphine 4 mg [morphine 4 mg/mL intravenous cartridge (1 mL)] Route: IVP; Site: mlc right forearm; 21:25 Follow up: BP 107 / 59; Pulse 82 bpm; Pain 8/10 Adult; Response: Pain is decreased [facility] 05/17 02:28 Drug: Furosemide 40 mg [furosemide 10 mg/mL injection solution (4 mL)] Route: IVP; [facility] [place] [place]: right forearm; 03:26 Drug: Albuterol-Ipratropium 3 ml [ipratropium-albuterol 0.5 mg-3 mg(2.5 mg base)/3 mL [facility] nebulization soln (3 mL)] Route: Inhalation; Signatures: Dispatcher [employer] EDIA Jana Santamaria RN RN kcs Jobson, Karen, RN RN Ly Stacy, Reg Reg Flavio Judge, [place] Machine Operator Unit ml3 Keith Maddox, DO mm11 Lindy Cerna, SUPPORT MANAGER SUPPORT MANAGER ar3 Lilian Mondragon RN RN [facility] Annia Burton Jacob 6 The chart was reviewed and I authenticate all verbal orders and agree with the evaluation and treatment provided.Attachments: 05/16 21:05 [facility] Payment Agreement [facility] 15:30 T-Sheet-- Draft Copy 15:30 ECG/EKG Chart Complete MTDD
--- NOTE | 2016-05-29 17:04 | DSES ---
DATE OF ADMISSION: 05/17/2016 DATE OF DISCHARGE: 05/18/2016 ATTENDING PHYSICIAN: Leonides Jacob MD PRIMARY CARE PHYSICIAN: Brown Trotter CURRENT PHYSICIAN: None. CONSULTING PHYSICIAN: None. CONDITION ON DISCHARGE: Guarded. FINAL DIAGNOSIS: Acute decompensated congestive heart failure and COPD exacerbation. PROCEDURES: None. HISTORY OF PRESENT ILLNESS: The patient is a 70-year-old female with a past medical history of chronic obstructive pulmonary disease (COPD), hypertension, status post cerebrovascular accident (CVA), no residual deficits, coronary artery disease, status post stent placement, uterine cancer, and gastroesophageal reflux disease (GERD) who presented to the emergency department with complaints of abdominal pain for the last few days, located more in the right upper quadrant. She also noted that she had increasing shortness of breath, nonproductive cough, dyspnea on exertion, lower extremity edema as well as orthopnea with two pillows. She notes that these symptoms have been going on for about one week. The patient also says she continues to smoke a pack on a daily basis. The patient was admitted for congestive heart failure (CHF) exacerbation and COPD exacerbation. HOSPITAL COURSE: Admission diagnoses include: 1. Acute decompensated congestive heart failure. 2. COPD exacerbation. 3. Right upper quadrant abdominal pain, possibly secondary to cholelithiasis. 4. Tobacco use. 5. Coronary artery disease. Status post stent placement. 6. Hypertension. 7. Gastroesophageal reflux disease (GERD). 8. History of uterine cancer. PLAN: The patient was admitted to PCU for serial cardiac enzymes. She was started on Solu-Medrol as well as given Lasix to remain net negative fluid balance. Throughout 24 hours, the patient had some improvement, however, did not meet criteria for discharge. The patient was irritated that she had to stay in the hospital and wanted to leave against medical advice. The patient was aware that leaving against medical advice would mean that she has the possibility of disability, worsening of her medical condition and . The patient was well aware of the risks. The patient was there with her daughter who was also present for this discussion. Nurse was also present at bedside. The patient did not want to stay for continued medical treatment and left against medical advice. DISCHARGE MEDICATIONS: None. DISCHARGE INSTRUCTIONS: The patient was advised to return to the emergency room if she decides to change her mind. Time spent on discharge: 35 minutes.
== END 2016-05-18 11:21 | disposition left against medical advice (07) | DRG 292 ==
LOC: M ED 20:10 → M ED INP 05-17 02:29
PROVIDERS: ADMIT Hospitalist; ATTEND Internal Medicine
DX: I11.0 Hypertensive heart disease with heart failure (principal); J44.1 Chronic obstructive pulmonary disease with (acute) exacerbation; K80.70 Calculus of gallbladder and bile duct without cholecystitis without obstruction; I25.10 Atherosclerotic heart disease of native coronary artery without angina pectoris; E87.6 Hypokalemia; I50.9 Heart failure, unspecified; E83.42 Hypomagnesemia; K21.9 Gastro-esophageal reflux disease without esophagitis; F17.210 Nicotine dependence, cigarettes, uncomplicated; Z95.5 Presence of coronary angioplasty implant and graft; Z86.73 Personal history of transient ischemic attack (TIA), and cerebral infarction without residual deficits; Z79.02 Long term (current) use of antithrombotics/antiplatelets; Z79.82 Long term (current) use of aspirin; Z79.899 Other long term (current) drug therapy; Z85.42 Personal history of malignant neoplasm of other parts of uterus

== ENCOUNTER 2016-05-18 14:22 | Inpatient (IN) | payer MEDICARE ==
[~2016-05-18] VITALS: Ht 157.5 cm; Wt 83.0 kg
[~2016-05-18 14:22] MED LIST changes: +ANOR1AER INH; +AZEL0.055; +COLA100C PO; +METO5TAB2 PO
[2016-05-18] MEDS ORDERED: IPRATROPIUM 0.5MG/ALBUTEROL 2.5MG INH SOL UD 3ML (DUONEB)(J7620) As Ordered ONE ×2 (15:00→23:17)
[2016-05-18 15:33] LABS: MEAN CORPUSCULAR HEMOGLOBIN 26.7 pg (27.0-33.0); MEAN CORPUSCULAR HGB CONC 31.2 g/dl (32.0-36.5); MEAN CORPUSCULAR VOLUME 85.6 fl (80.0-96.0); PLATELET COUNT, AUTOMATED 270 k/mm3 (150-450); RED CELL DISTRIBUTION WIDTH 15.5 % (11.5-14.5)
--- NOTE | 2016-05-18 16:04 | REP ---
CHEST, ONE VIEW: HISTORY: Chest pain. COMPARISON: 05/17/2016 An increase in interstitial markings is present in the lungs consistent with interstitial edema. Increased density is present in the right lower lobe consistent with atelectasis. The cardiac silhouette is enlarged. The pulmonary vasculature is prominent. IMPRESSION: 1. Interstitial edema. 2. Cardiomegaly. Signed by Eduard Shahid MD 05/18/2016 04:04 P
[2016-05-18] MEDS ORDERED: MAGN400T PO (16:19)
[2016-05-18] MEDS ORDERED: ASPI1TAB PO (16:19)
[2016-05-18] MEDS ORDERED: POTA10CA PO (16:19)
[2016-05-18] MEDS ORDERED: FUROSEMIDE 40 MG/4 ML VIAL (J1940) As Ordered ONE (16:21)
[2016-05-18 16:22] LABS: BANDS 1 % (< 11)
[2016-05-18 16:23] LABS: ANISOCYTOSIS 1+; HYPOCHROMASIA 1+; POLYCHROMASIA 1+
[2016-05-18 16:38] LABS: CALCIUM LEVEL 9.4 MG/DL (8.8-10.2); CREATININE FOR GFR 1.13 MG/DL (0.55-1.02); GLOMERULAR FILTRATION RATE 50.5 (>39); POTASSIUM SERUM 3.1 MEQ/L (3.5-5.1)
[2016-05-18] MEDS ORDERED: ALBUTEROL SULFATE 2.5 MG/0.5 ML INH NEB SOLN As Ordered ONE (18:06)
[2016-05-18] MEDS ORDERED: POTASSIUM CHLORIDE 10 MEQ SR TABLET As Ordered ONE (18:17)
[2016-05-18] MEDS ORDERED: CLOPIDOGREL 300 MG TAB (PLAVIX) As Ordered ONE (18:19)
[2016-05-18] MEDS ORDERED: POTASSIUM CHLORIDE 10 MEQ SR TABLET PO ONE (18:45)
[2016-05-18] MEDS ORDERED: ALBUTEROL SULFATE 2.5 MG/0.5 ML INH NEB SOLN INH PRN (19:00)
--- NOTE | 2016-05-18 19:57 | HPEPDOC ---
Medical History and Physical Date of Admission May 18, 2016 at 18:45 History and Physical PRIMARY CARE PROVIDER: ATTENDING: Pari Sparks MD CHIEF COMPLAINT: Shortness of breath/chest pain HISTORY OF PRESENT ILLNESS: This 70-year-old female past medical history of COPD, CAD status post PCI, CHF, history of CVA with no residual symptoms, hypertension, uterine cancer, GERD who presents complaining of chest pain shortness of breath. Patient was recently admitted for increasing shortness of breath, nonproductive cough, dyspnea on exertion, lower some edema and orthopnea and treated for CHF exacerbation. Patient did leave AMA earlier today. Patient states she went home and smoked cigarettes after which she started to develop left-sided chest pain that was pressure-like, radiating to left arm, described as achy, and short-lived. Patient denies any exertional chest pain. Pain was nonreproducible, non-positional, nonpleuritic. The patient states that the pain is completely resolved at this time. No palpitations. No syncopal episodes. Patient states he still has two-pillow orthopnea. No PND. Lower some edema is improving. In the ED patient was found to have elevated troponin. In addition with the left -sided chest pain, and ST depression in the lateral leads, Dr. Martinez had recommended transfer to [place] for cardiac catheterization however patient refused. I have spoken to Dr. Martinez who recommended starting the patient on weight-based Lovenox twice a day for 72 hours, aspirin, Plavix. He states he will not see the patient on consult as she does not follow up with him closely outpatient. PAST MEDICAL HISTORY: As per HPI PAST SURGICAL HISTORY: Non contributory SOCIAL HISTORY: Smokes a pack a day for greater than 30 years, no alcohol or illicit drug use. No sick contacts. FAMILY HISTORY: Non contrib. ALLERGIES: Please see below. REVIEW OF SYSTEMS: HEENT: Denies sore throat/headache CARDIOVASCULAR: + chest pain. No palpitations RESPIRATORY: + shortness of breath/cough GASTROINTESTINAL: denies nausea/vomiting GENITOURINARY: Denies dysuria/urinary urgency. MUSCULOSKELETAL: Denies myalgias/arthralgias NEUROLOGICAL: Denies any focal weakness Rest of ROS negative. HOME MEDICATIONS: Please see below. PHYSICAL EXAMINATION: Vitals: (see below) General: No acute distress, laying comfortably in bed. HEENT: Moist mucous membranes. Neck: No JVD or lymphadenopathy Cardiac: Tachycardic, No murmurs Pulm: Bilateral expiratory wheezing, coarse crackles at the bases b/l. No rhonchi. No stridor or use of accessory muscles. Abd: NT/ND + BS Ext: No edema or cyanosis LABORATORY DATA: See below. IMAGING: Chest x-ray 05/18/16 IMPRESSION: 1. Interstitial edema. 2. Cardiomegaly. Echocardiogram 05/17/16 CONCLUSIONS: Normal left ventricular size and wall thickness with localized proximal inferoseptal hypokinesis, yet hyperkinetic global resting left ventricular systolic function. Mildly dilated left atrium with Doppler evidence of an impairment of left ventricular (LV) diastolic function, but currently estimated mean left atrial pressure only upper limits of normal to slightly elevated. Normal right ventricular size with borderline right ventricular free wall hypertrophy and Doppler evidence of moderately severe pulmonary hypertension. Slightly dilated right atrium and IVC with reduced respiratory collapse consistent with right heart failure. Mild mitral annular calcification without inflow tract obstruction but mild to moderate insufficiency. Aortic valvular sclerosis without functional valvular abnormality. MICROBIOLOGY: Please see below. ASSESSMENT/PLAN: 1. Acute decompensated CHF exacerbation with a preserved EF. See echocardiogram above. We'll restart Lasix, fluid reduction, low sodium diet. 2. NSTEMI - patient does have ST depressions in the lateral leads. Mild elevation of troponin. Chest pain has resolved in the ED. Patient refused transfer to [place]. Discussed with Dr. Martinez recommended weight-based Lovenox twice a day for 3 days, aspirin and Plavix. Dr. Martinez states he will not see the patient in the hospital as she is noncompliant. 3. Hypertension- controlled, continue home meds 4. COPD exacerbation- will start the patient on steroids, nebs. Co2 retention, however pt refusing BiPAP despite multiple attempts. 5. Tobacco abuse- counseling cessation; nicotine patch 6. GERD- continue PPI 7. History of uterine cancer DVT prophylaxis- enoxaparin Patient followed by Dr. Webster starting 05/19/16 at 7 AM. Vital Signs Blood pressure 154/68, heart rate 107, respiratory rate 17, oxygen saturation 90 % on room air. Afebrile. Laboratory Data Labs 24H Laboratory Tests 2 05/18/16 15:13: Anisocytosis 1+, Atypical Lymphocytes 3, B-Type Natriuretic Peptide 1610H, Band Neutrophils 1, White Blood Count 10.0, Red Blood Count 4.47, Hemoglobin 11.9L, Hematocrit 38.2, Mean Corpuscular Volume 85.6, Mean Corpuscular Hemoglobin 26.7L , Mean Corpuscular Hemoglobin Concent 31.2L, Red Cell Distribution Width 15.5H, Platelet Count 270, Neutrophils (%) (Auto) , Lymphocytes (%) (Auto) , Monocytes (%) (Auto) , Eosinophils (%) (Auto) , Basophils (%) (Auto) , Neutrophils # (Auto ) , Lymphocytes # (Auto) , Monocytes # (Auto) , Eosinophils # (Auto) , Basophils # (Auto) , Hypochromasia 1+, Large Unclassified Cells # , Large Unclassified Cells % , Lymphocytes (Manual) 4L, Monocytes (Manual) 4, Neutrophils 88H, Platelet Estimate NORMAL, Polychromasia 1+ 05/18/16 15:51: Anion Gap 9, Blood Urea Nitrogen 23H, Creatinine 1.13H, Sodium Level 136, Potassium Level 3.1L, Chloride Level 88L, Carbon Dioxide Level 39H, Calcium Level 9.4, Total Creatine Kinase 206#H, Creatine Kinase MB 3.7H, Creatine Kinase MB Relative Index 1.79, Glomerular Filtration Rate 50.5, Troponin I 0.19# H CBC/BMP Laboratory Tests 05/18/16 15:13 Red Blood Count 4.47, Mean Corpuscular Volume 85.6, Mean Corpuscular Hemoglobin 26.7 L, Mean Corpuscular Hemoglobin Concent 31.2 L, Red Cell Distribution Width 15.5 H, Neutrophils (%) (Auto) , Lymphocytes (%) (Auto) , Monocytes (%) (Auto) , Eosinophils (%) (Auto) , Basophils (%) (Auto) , Neutrophils # (Auto) , Lymphocytes # (Auto) , Monocytes # (Auto) , Eosinophils # (Auto) , Basophils # ( Auto) 05/18/16 15:51 Calcium Level 9.4, Total Creatine Kinase 206 #H Home Medications Scheduled (Anoro Ellipta 62.5-25 Mcg/INH) 1 Aer Aer 1 AER INH DAILY Amlodipine Besylate (Norvasc) 10 Mg Tab 10 MG PO DAILY Aspirin (Aspirin 81) 81 Mg Tab 81 MG PO DAILY Atorvastatin Calcium (Lipitor) 80 Mg Tab 80 MG PO DAILY Clopidogrel Bisulfate (Plavix) 75 Mg Tab 75 MG PO DAILY Magnesium Oxide (Magnesium Oxide) 400 Mg Tab 400 MG PO DAILY Metoclopramide HCl (Metoclopramide HCl) 5 Mg Tab 5 MG PO DAILY Pantoprazole Sodium Sesquihydr (Protonix) 40 Mg Tab 40 MG PO DAILY Potassium Chloride (Klor-Con M10) 10 Meq Tabcr 20 MEQ PO DAILY Scheduled PRN (Azelastine HCl) 0.15 % Spr 2 SPRAYS NA BID PRN PRN ALLERGIES Albuterol/Ipratropium (Combivent Respimat 20-100 Mcg/Act) 1 Aer Aer 1 PUFF INH QIDP PRN PRN SHORTNESS OF BREATH Allergies Coded Allergies: Loratadine (Verified Allergy, Severe, TONGUE SWELLING, 12/08/12) Pseudoephedrine (Verified Allergy, Severe, TONGUE SWELLING, 12/08/12) PARI SPARKS MD May 18, 2016 19:57
[2016-05-18] MEDS: IPRATROPIUM 0.5MG/ALBUTEROL 2.5MG INH SOL UD 3ML (DUONEB)(J7620) NEB SCH ×2 (20:00→23:24)
--- NOTE | 2016-05-18 20:20 | ECGEPIP ---
Stationary ECG Study [facility] - ED Test Date: 2016-05-18 Pat Name: MARITO GUERRA Department: Room: - Gender: F Heel Shaver: IGLESIA : 1945 Requested By: PABLO Christopher Order Number: [id number] Reading MD: Keren Payan Measurements Intervals [place] Rate: 111 P: 51 WV: 179 QRS: -60 QRSD: 88 T: 73 QT: 301 QTc: 409 Interpretive Statements SINUS TACHYCARDIA WITH OCCASIONAL VENTRICULAR PREMATURE COMPLEXES WITH OCCASIONAL SUPRAVENTRICULAR PREMATURE COMPLEXES LEFT ANTERIOR FASCICULAR BLOCK ANTEROSEPTAL MYOCARDIAL INFARCTION, OF INDETERMINATE AGE ST DEPRESSION, CONSIDER SUBENDOCARDIAL INJURY COMPARED 05/17/16 Electronically Signed On 05-18-2016 20:20:37 EST by Keren Payan
[2016-05-18 20:40] VITALS: O2SAT 92
[2016-05-18 20:46] LABS: ABG BASE EXCESS 12.7 (-2.0-2.0); ABG HCO3 41.1 MEQ/L (22.0-26.0); ABG PARTIAL PRESSURE O2 63.2 mmHg (75.0-100.0); ABG STANDARD HCO3 36.3 MEQ/L (22.0-26.0); ABG TOTAL CO2 43.3 MEQ/L (23.0-31.0); ABG pH (ARTERIAL) 7.361 UNITS (7.350-7.450)
[2016-05-18 20:58] LABS: ABG PARTIAL PRESSURE CO2 74.2 mmHg (35.0-45.0)
[2016-05-18] MEDS ORDERED: NICOTINE 14 MG/24 HR TRANSDERMAL TD ONE (21:00)
[2016-05-18 21:40] VITALS: BP 118/56
[2016-05-18 22:00] VITALS: PULSE 88
[2016-05-18] MEDS ORDERED: diphenhydrAMINE 25 MG CAP As Ordered ONE (23:14)
[2016-05-19] VITALS (8 sets, daily range): BP systolic 103–140; BP diastolic 53–79; PULSE 87–100
[2016-05-19] MEDS ORDERED: ENOXAPARIN 100MG/1ML SYRINGE (J1650) SC SCH
[2016-05-19] MEDS ORDERED: FUROSEMIDE 40 MG/4 ML VIAL (J1940) As Ordered ONE ×3 (00:43→08:45)
[2016-05-19] MEDS ORDERED: ENOXAPARIN 60 MG/0.6 ML SYR (J1650) As Ordered ONE (00:43)
[2016-05-19] MEDS ORDERED: methylPREDNISolone INJ 125 MG/2 ML VIAL (J2930) As Ordered ONE (00:43)
[2016-05-19] MEDS: methylPREDNISolone INJ 125 MG/2 ML VIAL (J2930) IV SCH ×3 (01:11→18:47)
[2016-05-19] MEDS: FUROSEMIDE 40 MG/4 ML VIAL (J1940) IV SCH ×6 (01:12→21:25)
[2016-05-19] MEDS: ENOXAPARIN 60 MG/0.6 ML SYR (J1650) SC SCH ×2 (01:12→12:37)
[2016-05-19] MEDS ORDERED: IPRATROPIUM 0.5MG/ALBUTEROL 2.5MG INH SOL UD 3ML (DUONEB)(J7620) As Ordered ONE ×4 (01:44→14:40)
[2016-05-19] MEDS: IPRATROPIUM 0.5MG/ALBUTEROL 2.5MG INH SOL UD 3ML (DUONEB)(J7620) NEB SCH ×5 (01:48→20:39)
[2016-05-19 06:48] LABS: MEAN CORPUSCULAR HEMOGLOBIN 26.9 pg (27.0-33.0); MEAN CORPUSCULAR HGB CONC 31.9 g/dl (32.0-36.5); MEAN CORPUSCULAR VOLUME 84.3 fl (80.0-96.0); RED CELL DISTRIBUTION WIDTH 15.4 % (11.5-14.5)
[2016-05-19 07:12] LABS: ALBUMIN 3.1 GM/DL (3.2-5.2); ALBUMIN/GLOBULIN RATIO 0.86 (1.00-1.93); BILIRUBIN,TOTAL 0.3 MG/DL (0.2-1.0); CREATININE FOR GFR 0.98 MG/DL (0.55-1.02); GLOMERULAR FILTRATION RATE 59.6 (>39); MAGNESIUM LEVEL 1.9 MG/DL (1.8-2.4); POTASSIUM SERUM 3.7 MEQ/L (3.5-5.1); TOTAL PROTEIN 6.7 GM/DL (6.4-8.2)
[2016-05-19] MEDS: CLOPIDOGREL 75 MG TAB PO SCH (09:30)
[2016-05-19] MEDS: MAGNESIUM OXIDE 400 MG TAB (MAG-OX) PO SCH (09:30)
[2016-05-19] MEDS: PANTOPRAZOLE 40MG TAB (PROTONIX) PO SCH (09:30)
[2016-05-19] MEDS: METOCLOPRAMIDE 5 MG TAB PO SCH (09:30)
[2016-05-19] MEDS: amLODIPine 10 MG TAB PO SCH (09:31)
[2016-05-19] MEDS: ATORVASTATIN 20 MG TAB PO SCH (09:31)
[2016-05-19] MEDS: ASPIRIN 81 MG ENTERIC TAB PO SCH (09:31)
--- NOTE | 2016-05-19 16:08 | IPNPDOC ---
Subjective Date Seen The patient was seen on 05/19/16. Subjective Chief Complaint/HPI The patient is a 70-year-old female admitted with a reason for visit of Acute Exacerbation Chf;Asthma W/Copd Exacerbation. General: Denies: Chills, Night Sweats Constitutional: Denies: Chills, Fever Eyes: Denies: Pain, Vision change ENT: Denies: Ear Pain, Head Aches Skin: Denies: Lesions, Rash Pulmonary: Reports: Cough, Dyspnea Cardiovascular: Reports: Orthopnea, Denies: Chest Pain, Palpitations Gastrointestinal: Denies: Abdominal Pain, Nausea, Vomiting Genitourinary: Denies: Dysuria, Frequency Hematologic: Denies: Bleeding Excessively, Bruising Objective Physical Examination General Exam: Positive: Alert, Cooperative, No Acute Distress Neck Exam: Positive: JVD Chest Exam: Positive: Rales (faint bibasilar rales noted on auscultation) Heart Exam: Positive: Normal S1, Normal S2, Tachycardic Abdomen Exam: Positive: Soft, Negative: Tenderness Extremity Exam: Positive: Swelling (1+ non-pitting edema in LE B/L), Negative: Tenderness Assessment /Plan Plan/VTE VTE Prophylaxis Ordered?: Yes Plan 1. Acute decompensated CHF exacerbation with a preserved EF. Echocardiogram notable for diastolic dysfunction Continue Lasix IV, for a net negative balance of -2 L. Fluid restriction Daily weights Monitor I's and O's We will continue to monitor her volume status and switch her over to by mouth Lasix 2. NSTEMI EKG on admission notable for ST depressions in the lateral leads. Troponin level has peaked at 0.61, and has down trended thereafter Chest pain had resolved in the ED, and the patient denies any complaints of chest pain at this time. Patient refused transfer to [place] after discussion with Dr. Martinez, who the patient has seen in the past. We will continue the patient on Lovenox twice a day for 3 days total, aspirin and Plavix-as per the recommendation of cardiology 3. COPD exacerbation Continue on steroids, nebs. ABG notable for CO2 retention, however pt refusing BiPAP despite multiple attempts. The ABG is however notable for compensatory metabolic alkalosis We will continue to monitor the patient's respiratory status 4. Tobacco abuse counseling cessation; nicotine patch 5. GERD continue PPI 6. History of uterine cancer DVT prophylaxis- Already on Enoxaparin VS, I&O, 24H, Ben Vital Signs/I&O Vital Signs Date Time Temp Pulse Resp B/P Pulse Ox O2 Delivery O2 Flow Rate FiO2 05/19/16 12:00 98.1 101 20 104/56 92 Nasal Cannula 4.0 I&O- Last 24 Hours up to 6 AM 05/19/16 06:00 Intake Total 200 ml Output Total 550 ml Balance -350 ml Laboratory Data 24H LABS Laboratory Tests 2 05/18/16 20:25: Arterial Blood pH 7.361, Arterial Blood Partial Pressure CO2 74.2*H, Arterial Blood Partial Pressure O2 63.2L, Arterial Blood Total CO2 43.3H, Arterial Blood HCO3 41.1H, Arterial Blood Base Excess 12.7H, Arterial Blood Oxygen Saturation 91.1L, Blood Gas Bicarbonate Standard 36.3H 05/19/16 00:05: Creatine Kinase MB 6.1H, Creatine Kinase MB Relative Index 1.97, Total Creatine Kinase 309H, Troponin I 0.61#H 05/19/16 06:32: Creatine Kinase MB 5.2H, Creatine Kinase MB Relative Index 1.79, Total Creatine Kinase 290H, Troponin I 0.57H, Blood Urea Nitrogen 22H, Creatinine 0.98, Sodium Level 138, Potassium Level 3.7, Chloride Level 88L, Carbon Dioxide Level 42H, Calcium Level 9.0, Aspartate Amino Transf (AST/SGOT) 27, Alanine Aminotransferase (ALT/SGPT) 22, Alkaline Phosphatase 73, Total Bilirubin 0.3, Total Protein 6.7, Albumin 3.1L, Albumin/Globulin Ratio 0.86L, Anion Gap 8, Glomerular Filtration Rate 59.6, Magnesium Level 1.9 05/19/16 11:54: Creatine Kinase MB 3.9H, Creatine Kinase MB Relative Index 1.48, Total Creatine Kinase 262H, Troponin I 0.54H CBC/BMP Laboratory Tests 05/19/16 06:32 Calcium Level 9.0, Aspartate Amino Transf (AST/SGOT) 27, Alanine Aminotransferase (ALT/SGPT) 22, Total Creatine Kinase 290 H, Alkaline Phosphatase 73, Total Bilirubin 0.3, Total Protein 6.7, Albumin 3.1 L, Red Blood Count 4.37, Mean Corpuscular Volume 84.3, Mean Corpuscular Hemoglobin 26.9 L, Mean Corpuscular Hemoglobin Concent 31.9 L, Red Cell Distribution Width 15.4 H TERRY PRO MD May 19, 2016 16:08
[2016-05-19] MEDS ORDERED: ALBUTEROL SULFATE 2.5 MG/0.5 ML INH NEB SOLN As Ordered ONE (17:05)
--- NOTE | 2016-05-19 17:48 | EDDOCDS ---
Physician Documentation [facility] Name: Roberta Welch Age: 70 yrs Sex: Female : 1945 Arrival Date: 05/18/2016 Time: 14:22 Bed Admit Hold Private MD: Brown Trotter NCFM Disposition: 05/18/16 17:33 Hospitalization ordered by Beto Sparks for Inpatient Admission. Preliminary diagnosis are Non-ST elevation (NSTEMI) myocardial infarction, Hypokalemia. - [facility] - Status is Inpatient Admission. aa3 - Condition is Stable. - Problem is new. - Symptoms are unchanged. Historical: - Allergies: no known allergies; - Home Meds: 1. amlodipine 10 mg Oral tab 1 tab once daily 2. Anoro Ellipta 62.5-25 mcg/actuation inhalation dsdv 1 puff once daily 3. atorvastatin 80 mg oral tab 1 tab once daily 4. aspirin 81 mg Oral chew 1 tab once daily 5. azelastine 0.15 % (205.5 mcg) nasal spry 1 spray 2 times per day 6. Combivent 18-103 mcg/actuation Inhl aero 2 puffs 4 times per day 7. Klor-Con M20 20 mEq Oral TbTQ 1 tab once daily 8. magnesium oxide 400 mg Oral tab daily 9. metoclopramide HCl 5 mg Oral tab 1 tab once daily 10. Plavix 75 mg Oral tab 1 tab once daily 11. Protonix 40 mg Oral TbEC 1 tab once daily - PMHx: CAD; Cancer, Uterine; COPD; CVA; Hypertension; - PSHx: Hysterectomy; Cardiac stents; - Social history: Smoking status: Patient uses tobacco products, current some day smoker. No barriers to communication noted, The patient speaks fluent Syriac. - Family history: Not pertinent. - : The pt / caregiver states he / she is on anticoagulants: Plavix. Home medication list is obtained from. - Exposure Risk Screening:: None identified. Vital Signs: 05/18 14:39 BP 123 / 56; Pulse 117; Resp 28; Temp 98.8; Pulse Ox 86% on 4 lpm NC; Weight 61.23 kg / jmk 134.99 lbs; Height 5 ft. 2 in. (157.48 cm); 16:28 BP 122 / 57 (auto/); jmk 16:28 Pulse 114 MON; Resp 28; Pulse Ox 88% ; jmk 17:58 BP 109 / 51 (auto/); jmk 17:58 Pulse 114 MON; Resp 28; Pulse Ox 68% ; jmk 18:28 BP 151 / 63 (auto/); jmk 18:28 Pulse 114 MON; Pulse Ox 95% ; jmk 18:50 BP 128 / 58 (auto/); jmk 18:50 Pulse 108 MON; Resp 24; Pulse Ox 94% ; jmk 18:58 BP 130 / 60 (auto/); nn1 18:58 Pulse 108 MON; Pulse Ox 93% ; nn1 19:13 BP 129 / 54 (auto/); nn1 19:13 Pulse 106 MON; Pulse Ox 95% ; nn1 19:28 BP 151 / 68 (auto/); nn1 19:28 Pulse 114 MON; Pulse Ox 88% ; nn1 19:31 Temp 97.6(O); nn1 19:31 Resp 24 S; nn1 19:32 Pulse Ox 4 lpm NC; nn1 21:19 BP 118 / 56 (auto/); kas2 21:19 Pulse 108 MON; kas2 14:39 Body Mass Index 24.69 (61.23 kg, 157.48 cm) k MDM: 14:42 Artist'S Manager/Pulse Ox/q 30 min VS ordered. br1 14:42 IV Saline Lock ordered. br1 14:42 Rhythm Strip to chart ordered. br1 14:42 Undress patient appropriately for examination ordered. br1 14:43 Basic Metabolic Profile Ordered. EDMS 14:43 CBC with Diff Ordered. EDMS 14:43 Cardiac Injury Profile Ordered. EDMS 14:43 Troponin Ordered. EDMS 14:44 ECG WITH READING ER PHYS+CARDIAG ordered. EDMS 14:56 Oxygen at 2L/min via NC ordered. br1 14:56 Albuterol-Ipratropium 1 neb Nebulizer every 20 minutes x3 ordered. br1 14:56 Call Respiratory ordered. br1 14:57 Chest, 1 View Ordered. EDMS 14:57 BNP Ordered. EDMS 14:59 BED REQUEST+ADM ordered. EDMS 15:06 Call Respiratory complete. cs15 15:38 DIFFERENTIAL NO CHARGE Ordered. EDMS 15:38 PLATELET ESTIMATE Ordered. EDMS 15:55 CBC with Diff Reviewed. br1 15:56 Furosemide 40 mg IVP once ordered. br1 15:56 BNP Reviewed. br1 16:15 Chest, 1 View Reviewed. br1 16:39 Financial registration complete. gjb 16:41 [facility] Payment Agreement was scanned into [employer] and attached to record. gjb 16:46 CBC with Diff Reviewed. br1 16:46 PLATELET ESTIMATE Reviewed. br1 16:51 Basic Metabolic Profile Reviewed. br1 16:51 Cardiac Injury Profile Reviewed. br1 16:51 Troponin Reviewed. br1 16:51 Potassium Chloride Extended Release Tablet 40 mEq PO once ordered. br1 17:02 Plavix - Clopidogrel 300 mg PO once ordered. br1 18:02 Albuterol 2.5 mg Nebulizer once ordered. br1 18:34 Recheck Vital Signs, perform reassessment and enter into [employer] ordered. br1 18:44 ARTERIAL BLOOD GAS Ordered. EDMS 18:52 Admission / Observation Status ordered. EDMS 18:52 ECG WITH READING ER PHYS+CARDIAG ordered. EDMS 18:52 2 GRAM SODIUM DIET ordered. EDMS 18:53 LOW FAT LOW CHOLESTEROL DIET ordered. EDMS 19:33 CARDIAC INJURY PROFILE Ordered. EDMS 19:33 CARDIAC INJURY PROFILE Ordered. EDMS 19:33 TROPONIN Ordered. EDMS 19:33 TROPONIN Ordered. EDMS 19:33 COMPLETE BLOOD COUNT Ordered. EDMS 19:33 COMPLETE COMPHRENSIVE METABOLI Ordered. EDMS 20:19 MAGNESIUM LEVEL Ordered. EDMS 20:19 CARDIAC INJURY PROFILE Ordered. EDMS 20:19 TROPONIN Ordered. EDMS 20:32 Nicoderm CQ Patch 14 mg/24 hr 1 patches Transdermal once ordered. kas2 20:32 diphenhydrAMINE 25 mg PO once ordered. kas2 20:35 Written Provider Order was scanned into [employer] and attached to record. tmm1 21:13 Admission / Observation Status ordered. EDMS 21:14 BIPAP INPATIENT ordered. EDMS 22:11 Written Provider Order was scanned into [employer] and attached to record. tmm1 Administered Medications: 15:07 Drug: Albuterol-Ipratropium 1 neb [ipratropium-albuterol 0.5 mg-3 mg(2.5 mg base)/3 mL cs15 nebulization soln (1 neb)] Route: Nebulizer; 15:24 Drug: Albuterol-Ipratropium 1 neb [ipratropium-albuterol 0.5 mg-3 mg(2.5 mg base)/3 mL cs15 nebulization soln (1 neb)] Route: Nebulizer; 15:24 Follow up: Response: Wheezing has decreased cs15 16:00 Drug: Albuterol-Ipratropium 1 neb [ipratropium-albuterol 0.5 mg-3 mg(2.5 mg base)/3 mL cs15 nebulization soln (1 neb)] Route: Nebulizer; 16:38 Drug: Furosemide 40 mg [furosemide 10 mg/mL injection solution (4 mL)] Route: IVP; [facility] Site: left forearm; 18:25 Drug: Albuterol 2.5 mg [albuterol sulfate 2.5 mg/0.5 mL solution for nebulization (0.5 cs15 mL)] Route: Nebulizer; 18:51 Drug: Plavix - Clopidogrel 300 mg [clopidogrel 75 mg tablet (4 tabs)] Route: PO; rs3 19:02 Drug: Potassium Chloride 40 mEq [potassium chloride ER 10 mEq tablet,extended release [facility] (4 tabs)] Route: PO; 21:55 Drug: Nicoderm CQ Patch 14 mg/24 hr 1 patches Route: Transdermal; Site: left upper arm; kas2 23:12 Drug: diphenhydrAMINE 25 mg [diphenhydramine 25 mg capsule (1 caps)] Route: PO; kas2 Signatures: Dispatcher [employer] Saurabh Bartlett RN RN jmk Roggie, Brian, MD MD br1 Roseann, Angella, BUSINESS STRATEGIST BUSINESS STRATEGIST tmm1 Nidia Enamorado RN RN aa3 Jamison Stevens RN RN [facility] Sony Fowler,RT RT cs15 Annia Burton Kim, RN RN kas2 Amirah Jennings RN rs3 The chart was reviewed and I authenticate all verbal orders and agree with the evaluation and treatment provided.Corrections: (The following items were deleted from the chart) 20:18 19:33 CARDIAC INJURY PROFILE ordered. EDMS EDMS 20:18 19:33 TROPONIN ordered. EDMS EDMS 20:18 19:34 MAGNESIUM LEVEL ordered. EDMS EDMS 22:17 22:17 ARTERIAL BLOOD GAS ordered. EDMS EDMS 22:17 22:17 ARTERIAL BLOOD GAS ordered. EDMS EDMS 23:24 21:14 ARTERIAL BLOOD GAS ordered. EDMS EDMS Attachments: 16:41 [facility] Payment Agreement gjb 20:35 Written Provider Order tmm1 22:11 Written Provider Order tmm1 MTDD
--- NOTE | 2016-05-19 17:48 | EDDOCDS ---
Nurse's Notes [facility] Name: Roberta Guerra Age: 70 yrs Sex: Female : 1945 Arrival Date: 05/18/2016 Time: 14:22 Bed Admit Hold Private MD: Brown Trotter NCFM Diagnosis: Non-ST elevation (NSTEMI) myocardial infarction;Hypokalemia Presentation: 05/18 14:27 Presenting complaint: Patient states: states ER visit for abd and chest pain.. pain jmk persists. states pain to left lateral chest discomfort with arm pain. reports breathing is more labored. Aspirin was taken PATIENT ACCESS ASSOCIATE. 324 en route. Adult Sepsis Screening: The patient does not have new or worsening altered mentation. Patient's respiratory rate is less than 22. Systolic blood pressure is greater than 100. Patient has a qSOFA score of 0- Negative Sepsis Screen. Suicide/Homicide risk assessment- the patient denies having any suicidal and/or homicidal ideations and does not present with any other emotional, behavioral or mental health complaints. Status: Patient is not a access services assistant or dependent. Transition of care: patient was not received from another setting of care. 14:27 Acuity: DELISA Level 3 [facility] 14:27 Method Of Arrival: Ambulance [facility] Triage Assessment: 14:33 General: Appears in no apparent distress. Pain: Unable to use pain scale. Does not jmk appear to understand pain scale. 14:39 Cardiovascular: Chest pain is described as unable to use pain scale. radiates Does not jmk radiate. episodes unable to provide details began. Respiratory: Breath sounds are coarse bilaterally. Historical: - Allergies: no known allergies; - Home Meds: 1. amlodipine 10 mg Oral tab 1 tab once daily 2. Anoro Ellipta 62.5-25 mcg/actuation inhalation dsdv 1 puff once daily 3. atorvastatin 80 mg oral tab 1 tab once daily 4. aspirin 81 mg Oral chew 1 tab once daily 5. azelastine 0.15 % (205.5 mcg) nasal spry 1 spray 2 times per day 6. Combivent 18-103 mcg/actuation Inhl aero 2 puffs 4 times per day 7. Klor-Con M20 20 mEq Oral TbTQ 1 tab once daily 8. magnesium oxide 400 mg Oral tab daily 9. metoclopramide HCl 5 mg Oral tab 1 tab once daily 10. Plavix 75 mg Oral tab 1 tab once daily 11. Protonix 40 mg Oral TbEC 1 tab once daily - PMHx: CAD; Cancer, Uterine; COPD; CVA; Hypertension; - PSHx: Hysterectomy; Cardiac stents; - Social history: Smoking status: Patient uses tobacco products, current some day smoker. No barriers to communication noted, The patient speaks fluent Surinamese. - Family history: Not pertinent. - : The pt / caregiver states he / she is on anticoagulants: Plavix. Home medication list is obtained from. - Exposure Risk Screening:: None identified. Screenin:42 Screening information is obtained from the patient. Fall risk: No risks identified. jmk Assistance ADL's: requires no assistance with activities of daily living. Abuse/DV Screen: The patient / caregiver reports he/she is: not in a situation that causes fear, pain or injury. Nutritional screening: No deficits noted. Advance Directives: Currently, there is no health care proxy. There is no active DNR order. There is no living will. There is no Power of Transmission Mechanic. home support is adequate. Assessment: 14:44 General: Appears in no apparent distress, responses are very surly. speech is jmk interrupted by resp effort. Labored. congested cough. decreased breath sounds to both bases. without peripheral edema. Indicates discomfort to left anterior chest ? breast area that is increased with palaption.. Cardiovascular: Capillary refill < 3 seconds Clubbing of nail beds is present Heart tones S1 S2 present Edema is absent. Respiratory: Airway is patent Respiratory effort is even, labored, Respiratory pattern is regular, Breath sounds are diminished bilaterally. 15:15 General: Appears reports pain to chest has decreased /. Unwilling or unable to provide jmk # scale. cough is now productive with using neb.. 16:38 General: Appears continues to be verbally abusive and manipulative. attempted jmk pacification without effect. monitor is st. remains tachypneic with berating. encouraged relaxation and comfort measures offered. provider aware of request for bedside visit. reports variety of complaints that change with each bedside intervention. 18:11 General: Appears decreased pulse ox noted, however, readily ingesting diet. presently jmk denies pain.. 18:13 General: Appears decreased BS. provider aware. additional neb requested.. jmk 18:54 General: Appears OOB to chair. decompensates with pulse ox decreased to 68%, however, maria esther pt had removed her oxygen. rapid resumptions of Sao2 to 76 with application of NRB for short duration, then 4l nc reapplied. monitor continues as sr/st.. 19:32 General: Patient in bed, breathing is slightly labored when speaking. Patient is nn1 pleasant at this time. Patient reports no complaints.. Neurological: Level of Consciousness is awake, alert, obeys commands, Oriented to person, place, time. Cardiovascular: Rhythm is sinus tachycardia. Respiratory: Airway is patent Respiratory effort is even, labored, Respiratory pattern is regular, Breath sounds are diminished bilaterally. Derm: Skin is pink, warm & dry. 20:53 General: Patient assisted to bedside commode, 150cc urine output. Patient OOB in nn1 bedside chair at this time. . 21:00 General: Verbal report given by Manasa Khan RN. Assumed care of patient at this time.. [facility] 21:30 General: RN tried to move patient to C2 to have RT apply BIPAP. Patient is refusing [facility] BIPAP. Dr. Sparks called and made aware of patients concerns. Dr. Sparks talked to patient on the phone. Patient is still refusing BIPAP at this time.. 22:00 General: Verbal report given to Mekhi Yusuf RN.. [facility] 05/19 10:21 General: Appears. mlb1 Vital Signs: 05/18 14:39 BP 123 / 56; Pulse 117; Resp 28; Temp 98.8; Pulse Ox 86% on 4 lpm NC; Weight 61.23 kg; [facility] Height 5 ft. 2 in. (157.48 cm); 16:28 BP 122 / 57 (auto/); k 16:28 Pulse 114 MON; Resp 28; Pulse Ox 88% ; jmk 17:58 BP 109 / 51 (auto/); jmk 17:58 Pulse 114 MON; Resp 28; Pulse Ox 68% ; jmk 18:28 BP 151 / 63 (auto/); jmk 18:28 Pulse 114 MON; Pulse Ox 95% ; jmk 18:50 BP 128 / 58 (auto/); jmk 18:50 Pulse 108 MON; Resp 24; Pulse Ox 94% ; jmk 18:58 BP 130 / 60 (auto/); nn1 18:58 Pulse 108 MON; Pulse Ox 93% ; nn1 19:13 BP 129 / 54 (auto/); nn1 19:13 Pulse 106 MON; Pulse Ox 95% ; nn1 19:28 BP 151 / 68 (auto/); nn1 19:28 Pulse 114 MON; Pulse Ox 88% ; nn1 19:31 Temp 97.6(O); nn1 19:31 Resp 24 S; nn1 19:32 Pulse Ox 4 lpm NC; nn1 21:19 BP 118 / 56 (auto/); kas2 21:19 Pulse 108 MON; kas2 14:39 Body Mass Index 24.69 (61.23 kg, 157.48 cm) [facility] Vitals: 14:39 Log In Time N/A - ambulance arrival. [facility] ED Course: 14:24 Patient visited by Kate Teixeira. mt4 14:24 Brown Trotter is Private Physician. mt4 14:24 Patient moved to Waiting mt4 14:26 Patient moved to 9 k 14:30 Triage Initiated jmk 14:42 Pablo Odonnell MD is Attending Physician. br1 14:42 The patient / caregiver is instructed regarding the plan of care and ED course. Cardiac [facility] monitor on. 14:42 Maintain field IV. Gauge & site: 20 to left forearm. jmk 14:45 Patient visited by Antony Rodriguez. jml1 14:45 EKG done. (by ED staff). Reviewed by Pablo Odonnell MD. jml1 14:46 Patient visited by Saurabh Tomas,STEFFANIE. jmk 14:56 Patient visited by Pablo Odonnell MD. br1 15:14 BNP Sent. jmk 15:15 Basic Metabolic Profile Sent. jmk 15:15 CBC with Diff Sent. jmk 15:15 Cardiac Injury Profile Sent. jmk 15:15 Troponin Sent. jmk 15:16 Patient visited by Saurabh Tomas,STEFFANIE. jmk 16:08 Chest, 1 View Returned. EDMS 16:15 DIFFERENTIAL NO CHARGE Sent. jmk 16:23 Patient visited by Antony Rodriguez. jml1 16:41 [facility] Payment Agreement was scanned into [employer] and attached to record. gjb 16:45 Patient visited by Sam Bunn PCA. jlf 16:55 Chest, 1 View Returned. EDMS 17:33 Beto Sparks is Hospitalizing Provider. br1 18:58 Patient visited by Sam Bunn PCA. jlf 18:58 EKG done. (by ED staff). Reviewed by Beto Sparks. jlf 20:35 Written Provider Order was scanned into [employer] and attached to record. tmm1 21:02 Patient moved to 18 nn1 21:[address] Cunningham regarding patients PCO2 level. . nn1 21:07 EKG-ADULT Returned. EDMS 21:08 Patient moved to Admit Hold sls1 21:15 Patient moved to 2 sls1 21:38 Patient moved to 18 sls1 21:39 Patient moved to Admit Hold sls1 22:01 Patient visited by Janell Das,STEFFANIE. kas2 22:08 Patient visited by Janell Das,STEFFANIE. kas2 22:11 Patient visited by Janell Das,STEFFANIE. kas2 22:11 Written Provider Order was scanned into [employer] and attached to record. tmm1 05/19 17:47 No procedures done that require assistance. aa3 Administered Medications: 05/18 15:07 Drug: Albuterol-Ipratropium 1 neb [ipratropium-albuterol 0.5 mg-3 mg(2.5 mg base)/3 mL cs15 nebulization soln (1 neb)] Route: Nebulizer; 15:24 Drug: Albuterol-Ipratropium 1 neb [ipratropium-albuterol 0.5 mg-3 mg(2.5 mg base)/3 mL cs15 nebulization soln (1 neb)] Route: Nebulizer; 15:24 Follow up: Response: Wheezing has decreased cs15 16:00 Drug: Albuterol-Ipratropium 1 neb [ipratropium-albuterol 0.5 mg-3 mg(2.5 mg base)/3 mL cs15 nebulization soln (1 neb)] Route: Nebulizer; 16:38 Drug: Furosemide 40 mg [furosemide 10 mg/mL injection solution (4 mL)] Route: IVP; maria esther Site: left forearm; 18:25 Drug: Albuterol 2.5 mg [albuterol sulfate 2.5 mg/0.5 mL solution for nebulization (0.5 cs15 mL)] Route: Nebulizer; 18:51 Drug: Plavix - Clopidogrel 300 mg [clopidogrel 75 mg tablet (4 tabs)] Route: PO; rs3 19:02 Drug: Potassium Chloride 40 mEq [potassium chloride ER 10 mEq tablet,extended release jmk (4 tabs)] Route: PO; 21:55 Drug: Nicoderm CQ Patch 14 mg/24 hr 1 patches Route: Transdermal; Site: left upper arm; kas2 23:12 Drug: diphenhydrAMINE 25 mg [diphenhydramine 25 mg capsule (1 caps)] Route: PO; kas2 Output: 20:53 Urine: 150.00ml (Voided); Total: 150.00ml. nn1 RT: 15:07 Initial Med Neb Given as ordered. Respiratory: Respiratory effort is Respiratory cs15 pattern is regular Sputum is thick yellow Breath sounds with wheezes bilaterally. at expiration. 18:34 Subsequent Med Neb Given as ordered. Respiratory: Breath sounds with wheezes cs15 bilaterally. at expiration. 20:34 ABG's drawn from right radial artery pressure held for 5 minutes no bleeding noted bb3 pressure bandage applied specimen sent pt. tolerated well. O2 via nasal cannula \T\ 4L/min. 20:34 O2 via nasal cannula 4LPM sp02 92%. Respiratory: Sputum is thick brown yellow. bb3 21:16 Respiratory: pt refusing BIPAP. dr cunningham aware. bb3 23:21 Respiratory: posterior bilateral diminished LL coarse rales. anterior lung sounds bb3 diminished coarse. 23:23 Subsequent Med Neb Given as ordered. bb3 Order Results: Lab Order: Basic Metabolic Profile; SPEC'M 05/18/16 15:51 Test: GLUCOSE, FASTING; Value: 157; Range: 83-110; Abnormal: Above high normal; Units: MG/DL; Status: F Test: BLOOD UREA NITROGEN; Value: 23; Range: 7-18; Abnormal: Above high normal; Units: MG/DL; Status: F Test: CREATININE FOR GFR; Value: 1.13; Range: 0.55-1.02; Abnormal: Above high normal; Units: MG/DL; Status: F Test: GLOMERULAR FILTRATION RATE; Value: 50.5; Range: >39; Status: F Test: SODIUM LEVEL; Value: 136; Range: 136-145; Units: MEQ/L; Status: F Test: POTASSIUM SERUM; Value: 3.1; Range: 3.5-5.1; Abnormal: Below low normal; Units: MEQ/L; Status: F Test: CHLORIDE LEVEL; Value: 88; Range: 98-107; Abnormal: Below low normal; Units: MEQ/L; Status: F Test: CARBON DIOXIDE LEVEL; Value: 39; Range: 21-32; Abnormal: Above high normal; Units: MEQ/L; Status: F Test: ANION GAP; Value: 9; Range: 8-16; Units: MEQ/L; Status: F Test: CALCIUM LEVEL; Value: 9.4; Range: 8.8-10.2; Units: MG/DL; Status: F Test Note: ; Units are mL/min/1.73 m2 Chronic Kidney Disease Staging per NKF: Stage I & II GFR >=60 Normal to Mildly Decreased Stage III GFR 30-59 Moderately Decreased Stage IV GFR 15-29 Severely Decreased Stage V GFR <15 Very Little GFR Left ESRD GFR <15 on MANAGER MUSIC Lab Order: CBC with Diff; SPEC'M 05/18/16 15:13 Test: WHITE BLOOD COUNT; Value: 10.0; Range: 4.0-10.0; Units: K/mm3; Status: F Test: RED BLOOD COUNT; Value: 4.47; Range: 4.00-5.40; Units: M/mm3; Status: F Test: HEMOGLOBIN; Value: 11.9; Range: 12.0-16.0; Abnormal: Below low normal; Units: g/dl; Status: F Test: HEMATOCRIT; Value: 38.2; Range: 36.0-47.0; Units: %; Status: F Test: MEAN CORPUSCULAR VOLUME; Value: 85.6; Range: 80.0-96.0; Units: fl; Status: F Test: MEAN CORPUSCULAR HEMOGLOBIN; Value: 26.7; Range: 27.0-33.0; Abnormal: Below low normal; Units: pg; Status: F Test: MEAN CORPUSCULAR HGB CONC; Value: 31.2; Range: 32.0-36.5; Abnormal: Below low normal; Units: g/dl; Status: F Test: RED CELL DISTRIBUTION WIDTH; Value: 15.5; Range: 11.5-14.5; Abnormal: Above high normal; Units: %; Status: F Test: PLATELET COUNT, AUTOMATED; Value: 270; Range: 150-450; Units: k/mm3; Status: F Test: NEUTROPHILS; Value: 88; Range: 35-75; Abnormal: Above high normal; Units: %; Status: F Test: BANDS; Value: 1; Range: < 11; Units: %; Status: F Test: LYMPHOCYTES; Value: 4; Range: 16-52; Abnormal: Below low normal; Units: %; Status: F Test: MONOCYTES; Value: 4; Range: 0-8; Units: %; Status: F Test: ATYPICAL LYMPH; Value: 3; Range: 0-5; Units: %; Status: F Test: POLYCHROMASIA; Value: 1+; Status: F Test: HYPOCHROMASIA; Value: 1+; Status: F Test: ANISOCYTOSIS; Value: 1+; Status: F Lab Order: Cardiac Injury Profile; [facility] 05/18/16 15:51 Test: CPK CREATINE PHOSPHOKINASE; Value: 206; Range: 26-192; Abnormal: High; Units: U/L; Status: F Test: CK-MB VALUE MASS; Value: 3.7; Range: 0.0-3.6; Abnormal: Above high normal; Units: NG/ML; Status: F Test: MB/CK RELATIVE INDEX; Value: 1.79; Range: < OR =4; Status: F Test Note: ; DIAGNOSIS CRITERIA MMB ng/ml Relative Index (RI) NON-AMI < or = 5 N/A NARAYAN ZONE > 5 < or = 4 AMI > 5 > 4 Lab Order: Troponin; [facility] 05/18/16 15:51 Test: TROPONIN I; Value: 0.19; Range: < 0.10; Abnormal: High; Units: NG/ML; Status: F Test Note: ; Troponin I Reference Interval for advisorCONNECT LOCI: 99th Percentile= 0.00-0.045 ng/ml Risk Stratification: <= 0.10 ng/ml Decreased Risk for Adverse Clinical Events. 0.10-1.50 ng/ml Increased Risk for Adverse Clinical Events. Evaluation of additional criterion and/or repeat testing in 2-6 hours is suggested to rule out myocardial damage. >= 1.50 ng/ml Indicative of Myocardial Injury. Lab Order: BNP; [facility] 05/18/16 15:13 Test: BRAIN NATRIURETIC PEPTIDE; Value: 1610; Range: <100; Abnormal: Above high normal; Units: PG/ML; Status: F Lab Order: PLATELET ESTIMATE; [facility] 05/18/16 15:13 Test: PLATELET ESTIMATE; Value: NORMAL; Range: NORMAL; Status: F Lab Order: ARTERIAL BLOOD GAS; [facility] 05/18/16 20:25 Test: ABG pH (ARTERIAL); Value: 7.361; Range: 7.350-7.450; Units: UNITS; Status: F Test: ABG PARTIAL PRESSURE CO2; Value: 74.2; Range: 35.0-45.0; Abnormal: Above upper panic limits; Units: mmHg; Status: F Test: ABG PARTIAL PRESSURE O2; Value: 63.2; Range: 75.0-100.0; Abnormal: Below low normal; Units: mmHg; Status: F Test: ABG TOTAL CO2; Value: 43.3; Range: 23.0-31.0; Abnormal: Above high normal; Units: MEQ/L; Status: F Test: ABG HCO3; Value: 41.1; Range: 22.0-26.0; Abnormal: Above high normal; Units: MEQ/L; Status: F Test: ABG BASE EXCESS; Value: 12.7; Range: -2.0-2.0; Abnormal: Above high normal; Status: F Test: ABG STANDARD HCO3; Value: 36.3; Range: 22.0-26.0; Abnormal: Above high normal; Units: MEQ/L; Status: F Test: ABG O2 SATURATION; Value: 91.1; Range: 95.0-99.0; Abnormal: Below low normal; Units: %; Status: F Lab Order: CARDIAC INJURY PROFILE; [facility] 05/19/16 00:05 Test: CPK CREATINE PHOSPHOKINASE; Value: 309; Range: 26-192; Abnormal: Above high normal; Units: U/L; Status: F Test: CK-MB VALUE MASS; Value: 6.1; Range: 0.0-3.6; Abnormal: Above high normal; Units: NG/ML; Status: F Test: MB/CK RELATIVE INDEX; Value: 1.97; Range: < OR =4; Status: F Test Note: ; DIAGNOSIS CRITERIA MMB ng/ml Relative Index (RI) NON-AMI < or = 5 N/A NARAYAN ZONE > 5 < or = 4 AMI > 5 > 4 Lab Order: CARDIAC INJURY PROFILE; [facility] 05/19/16 11:54 Test: CPK CREATINE PHOSPHOKINASE; Value: 262; Range: 26-192; Abnormal: Above high normal; Units: U/L; Status: F Test: CK-MB VALUE MASS; Value: 3.9; Range: 0.0-3.6; Abnormal: Above high normal; Units: NG/ML; Status: F Test: MB/CK RELATIVE INDEX; Value: 1.48; Range: < OR =4; Status: F Test Note: ; DIAGNOSIS CRITERIA MMB ng/ml Relative Index (RI) NON-AMI < or = 5 N/A NARAYAN ZONE > 5 < or = 4 AMI > 5 > 4 Lab Order: TROPONIN; [facility] 05/19/16 00:05 Test: TROPONIN I; Value: 0.61; Range: < 0.10; Abnormal: High; Units: NG/ML; Status: F Test Note: ; Troponin I Reference Interval for advisorCONNECT LOCI: 99th Percentile= 0.00-0.045 ng/ml Risk Stratification: <= 0.10 ng/ml Decreased Risk for Adverse Clinical Events. 0.10-1.50 ng/ml Increased Risk for Adverse Clinical Events. Evaluation of additional criterion and/or repeat testing in 2-6 hours is suggested to rule out myocardial damage. >= 1.50 ng/ml Indicative of Myocardial Injury. Lab Order: TROPONIN; [facility] 05/19/16 11:54 Test: TROPONIN I; Value: 0.54; Range: < 0.10; Abnormal: Above high normal; Units: NG/ML; Status: F Test Note: ; Troponin I Reference Interval for Pfenex: 99th Percentile= 0.00-0.045 ng/ml Risk Stratification: <= 0.10 ng/ml Decreased Risk for Adverse Clinical Events. 0.10-1.50 ng/ml Increased Risk for Adverse Clinical Events. Evaluation of additional criterion and/or repeat testing in 2-6 hours is suggested to rule out myocardial damage. >= 1.50 ng/ml Indicative of Myocardial Injury. Lab Order: COMPLETE BLOOD COUNT; [facility] 05/19/16 06:32 Test: WHITE BLOOD COUNT; Value: 11.0; Range: 4.0-10.0; Abnormal: Above high normal; Units: K/mm3; Status: F Test: RED BLOOD COUNT; Value: 4.37; Range: 4.00-5.40; Units: M/mm3; Status: F Test: HEMOGLOBIN; Value: 11.8; Range: 12.0-16.0; Abnormal: Below low normal; Units: g/dl; Status: F Test: HEMATOCRIT; Value: 36.9; Range: 36.0-47.0; Units: %; Status: F Test: MEAN CORPUSCULAR VOLUME; Value: 84.3; Range: 80.0-96.0; Units: fl; Status: F Test: MEAN CORPUSCULAR HEMOGLOBIN; Value: 26.9; Range: 27.0-33.0; Abnormal: Below low normal; Units: pg; Status: F Test: MEAN CORPUSCULAR HGB CONC; Value: 31.9; Range: 32.0-36.5; Abnormal: Below low normal; Units: g/dl; Status: F Test: RED CELL DISTRIBUTION WIDTH; Value: 15.4; Range: 11.5-14.5; Abnormal: Above high normal; Units: %; Status: F Test: PLATELET COUNT, AUTOMATED; Value: 250; Range: 150-450; Units: k/mm3; Status: F Lab Order: COMPLETE COMPHRENSIVE METABOLI; SPEC'M 05/19/16 06:32 Test: GLUCOSE, FASTING; Value: 146; Range: 83-110; Abnormal: Above high normal; Units: MG/DL; Status: F Test: BLOOD UREA NITROGEN; Value: 22; Range: 7-18; Abnormal: Above high normal; Units: MG/DL; Status: F Test: CREATININE FOR GFR; Value: 0.98; Range: 0.55-1.02; Units: MG/DL; Status: F Test: GLOMERULAR FILTRATION RATE; Value: 59.6; Range: >39; Status: F Test: SODIUM LEVEL; Value: 138; Range: 136-145; Units: MEQ/L; Status: F Test: POTASSIUM SERUM; Value: 3.7; Range: 3.5-5.1; Units: MEQ/L; Status: F Test: CHLORIDE LEVEL; Value: 88; Range: 98-107; Abnormal: Below low normal; Units: MEQ/L; Status: F Test: CARBON DIOXIDE LEVEL; Value: 42; Range: 21-32; Abnormal: Above high normal; Units: MEQ/L; Status: F Test: ANION GAP; Value: 8; Range: 8-16; Units: MEQ/L; Status: F Test: CALCIUM LEVEL; Value: 9.0; Range: 8.8-10.2; Units: MG/DL; Status: F Test: AST/SGOT; Value: 27; Range: 15-37; Units: U/L; Status: F Test: ALT/SGPT; Value: 22; Range: 12-78; Units: U/L; Status: F Test: ALKALINE PHOSPHATASE; Value: 73; Range: 45-117; Units: U/L; Status: F Test: BILIRUBIN,TOTAL; Value: 0.3; Range: 0.2-1.0; Units: MG/DL; Status: F Test: TOTAL PROTEIN; Value: 6.7; Range: 6.4-8.2; Units: GM/DL; Status: F Test: ALBUMIN; Value: 3.1; Range: 3.2-5.2; Abnormal: Below low normal; Units: GM/DL; Status: F Test: ALBUMIN/GLOBULIN RATIO; Value: 0.86; Range: 1.00-1.93; Abnormal: Below low normal; Status: F Test Note: ; Units are mL/min/1.73 m2 Chronic Kidney Disease Staging per NKF: Stage I & II GFR >=60 Normal to Mildly Decreased Stage III GFR 30-59 Moderately Decreased Stage IV GFR 15-29 Severely Decreased Stage V GFR <15 Very Little GFR Left ESRD GFR <15 on MANAGER MUSIC Lab Order: MAGNESIUM LEVEL; SPEC05/19/16 06:32 Test: MAGNESIUM LEVEL; Value: 1.9; Range: 1.8-2.4; Units: MG/DL; Status: F Lab Order: CARDIAC INJURY PROFILE; SPEC05/19/16 06:32 Test: CPK CREATINE PHOSPHOKINASE; Value: 290; Range: 26-192; Abnormal: Above high normal; Units: U/L; Status: F Test: CK-MB VALUE MASS; Value: 5.2; Range: 0.0-3.6; Abnormal: Above high normal; Units: NG/ML; Status: F Test: MB/CK RELATIVE INDEX; Value: 1.79; Range: < OR =4; Status: F Test Note: ; DIAGNOSIS CRITERIA MMB ng/ml Relative Index (RI) NON-AMI < or = 5 N/A NARAYAN ZONE > 5 < or = 4 AMI > 5 > 4 Lab Order: TROPONIN; SPEC'M 05/19/16 06:32 Test: TROPONIN I; Value: 0.57; Range: < 0.10; Abnormal: Above high normal; Units: NG/ML; Status: F Test Note: ; Troponin I Reference Interval for [employer]ens CytoVale LOCI: 99th Percentile= 0.00-0.045 ng/ml Risk Stratification: <= 0.10 ng/ml Decreased Risk for Adverse Clinical Events. 0.10-1.50 ng/ml Increased Risk for Adverse Clinical Events. Evaluation of additional criterion and/or repeat testing in 2-6 hours is suggested to rule out myocardial damage. >= 1.50 ng/ml Indicative of Myocardial Injury. 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; : 1945 Requested By: PABLO Christopher; Order Number: [id number] Reading MD: Keren Payan; Measurements; Intervals [place]; Rate: 111 P: 51; CT: 179 QRS: -60; QRSD: 88 T: 73; QT: 301; QTc: 409; Interpretive Statements; SINUS TACHYCARDIA WITH OCCASIONAL VENTRICULAR PREMATURE COMPLEXES WITH; OCCASIONAL; SUPRAVENTRICULAR PREMATURE COMPLEXES; LEFT ANTERIOR FASCICULAR BLOCK; ANTEROSEPTAL MYOCARDIAL INFARCTION, OF INDETERMINATE AGE; ST DEPRESSION, CONSIDER SUBENDOCARDIAL INJURY COMPARED 05/17/16; ; Electronically Signed On 05-18-2016 20:20:37 EST by Keren Payan; Radiology Order: Chest, 1 View Test: Chest, 1 View REASON FOR EXAMINATION: Chest Pain; CHEST, ONE VIEW:; ; HISTORY: Chest pain.; ; COMPARISON: 05/17/2016; ; An increase in interstitial markings is present in the lungs consistent with; interstitial edema. Increased density is present in the right lower lobe; consistent with atelectasis. The cardiac silhouette is enlarged. The pulmonary; vasculature is prominent.; ; IMPRESSION:; ; 1. Interstitial edema.; ; 2. Cardiomegaly.; ; ; Signed by; Eduard Shahid MD 05/18/2016 04:04 P; Outcome: 17:33 Decision to Hospitalize by Provider. br1 05/19 17:47 Discharge Assessment: Patient awake and alert. intermittent confusion. patient aa3 administered narcotics - no. The following High Risk Discharge criteria are identified: None. Admitted accompanied by nurse, accompanied by tech, with oxygen, on monitor, with chart. Condition: good. CT Study completed. Admission hand-off: Report called to aNomi Joy RN. Property :Personal belongings accompany Pt. 17:48 Patient left the ED. aa3 Signatures: Dispatcher [employer] EDMS Saurabh Tomas,RN RN Willam Pickering, RN RN mlb1 Pablo Odonnell MD MD br1 Kate Teixeira mt4 Amirah JenningsRN RN rs3 Guero Sands bb3 Halle Gan, RN RN sls1 Antony Rodriguez jml1 Angella Whitfield, SHELL WORKER SHELL WORKER tmm1 Nidia Enamorado,RN RN aa3 Sam Bunn, SHELL WORKER SHELL WORKER jlf Elsa Ayala,RN RN nn1 Sony Fowler,RT RT cs15 Annia Burton Kim,RN RN kas2 MTDD
[2016-05-19] MEDS ORDERED: NICOTINE 14 MG/24 HR TRANSDERMAL TD ONE (20:30)
[2016-05-20] VITALS (9 sets, daily range): BP systolic 104–148; BP diastolic 55–86; O2SAT 91
[2016-05-20] MEDS: IPRATROPIUM 0.5MG/ALBUTEROL 2.5MG INH SOL UD 3ML (DUONEB)(J7620) NEB SCH ×6 (01:14→19:57)
[2016-05-20] MEDS: methylPREDNISolone INJ 125 MG/2 ML VIAL (J2930) IV SCH ×2 (01:17→09:09)
[2016-05-20] MEDS: FUROSEMIDE 40 MG/4 ML VIAL (J1940) IV SCH ×2 (01:17→04:28)
[2016-05-20] MEDS: ENOXAPARIN 60 MG/0.6 ML SYR (J1650) SC SCH ×3 (01:18→23:10)
[2016-05-20 06:17] LABS: MEAN CORPUSCULAR HEMOGLOBIN 26.6 pg (27.0-33.0); MEAN CORPUSCULAR VOLUME 85.8 fl (80.0-96.0); RED CELL DISTRIBUTION WIDTH 15.2 % (11.5-14.5); WHITE BLOOD COUNT 10.1 K/mm3 (4.0-10.0)
[2016-05-20 06:30] LABS: ALBUMIN 3.1 GM/DL (3.2-5.2); ALBUMIN/GLOBULIN RATIO 0.86 (1.00-1.93); ALKALINE PHOSPHATASE 66 U/L (45-117); ALT/SGPT 23 U/L (12-78); AST/SGOT 22 U/L (15-37); BILIRUBIN,TOTAL 0.3 MG/DL (0.2-1.0); BLOOD UREA NITROGEN 25 MG/DL (7-18); CALCIUM LEVEL 8.8 MG/DL (8.8-10.2); CHLORIDE LEVEL 85 MEQ/L (98-107); CREATININE FOR GFR 0.84 MG/DL (0.55-1.02); GLOMERULAR FILTRATION RATE > 60.0 (>39); GLUCOSE, FASTING 153 MG/DL (83-110); MAGNESIUM LEVEL 1.8 MG/DL (1.8-2.4); POTASSIUM SERUM 2.9 MEQ/L (3.5-5.1); SODIUM LEVEL 142 MEQ/L (136-145); TOTAL PROTEIN 6.7 GM/DL (6.4-8.2)
[2016-05-20 06:42] LABS: ANION GAP 5 MEQ/L (8-16); CARBON DIOXIDE LEVEL 52 MEQ/L (21-32)
[2016-05-20] MEDS ORDERED: POTASSIUM CHLORIDE 10 MEQ SR TABLET PO ONE ×2 (07:30→14:00)
--- NOTE | 2016-05-20 08:16 | ECGEPIP ---
Stationary ECG Study [facility] - ED Test Date: 2016-05-18 Pat Name: MARITO GUERRA Department: Room: [place] [address] Gender: F Rand Sewer: serge : 1945 Requested By: PABLO Christopher Order Number: [id number] Reading MD: Keren Payan Measurements Intervals [place] Rate: 114 P: 50 OR: 176 QRS: -55 QRSD: 86 T: 62 QT: 305 QTc: 422 Interpretive Statements SINUS TACHYCARDIA WITH OCCASIONAL VENTRICULAR PREMATURE COMPLEXES WITH OCCASIONAL SUPRAVENTRICULAR PREMATURE COMPLEXES MARKED LEFT AXIS DEVIATION ANTEROSEPTAL MYOCARDIAL INFARCTION, OF INDETERMINATE AGE NSTTW ABNORMALITY SIMILAR 14:37 Electronically Signed On 05-20-2016 8:16:17 EST by Keren Payan
[2016-05-20] MEDS ORDERED: AcetaZOLAMIDE 250 MG TAB PO SCH (09:00)
[2016-05-20] MEDS ORDERED: NICOTINE 14 MG/24 HR TRANSDERMAL TD SCH (09:00)
[2016-05-20] MEDS: ATORVASTATIN 20 MG TAB PO SCH (09:08)
[2016-05-20] MEDS: PANTOPRAZOLE 40MG TAB (PROTONIX) PO SCH (09:09)
[2016-05-20] MEDS: amLODIPine 10 MG TAB PO SCH (09:09)
[2016-05-20] MEDS: ASPIRIN 81 MG ENTERIC TAB PO SCH (09:09)
[2016-05-20] MEDS: MAGNESIUM OXIDE 400 MG TAB (MAG-OX) PO SCH (09:09)
[2016-05-20] MEDS: METOCLOPRAMIDE 5 MG TAB PO SCH (09:10)
[2016-05-20] MEDS: CLOPIDOGREL 75 MG TAB PO SCH (09:10)
--- NOTE | 2016-05-20 15:07 | REP ---
Clinical: Shortness of breath. Findings: Examination demonstrates moderate chronic emphysematous changes with scattered areas of scarring. Acute findings include partial collapse to the right middle lobe with air bronchograms as well as scattered right lower lobe infiltrates and moderate right pleural effusion. There is no evidence for pneumothorax. Reactive adenopathy noted with lymph nodes in the mediastinum up to 10 mm short axis diameter. Stable cardiomegaly and atherosclerotic changes to the thoracic aorta and coronary arteries noted without pericardial effusion. Impression: Moderate chronic emphysematous changes with scattered scarring and bronchiectasis. Acute right middle lobe consolidation with air bronchograms as well as scattered right lower lobe infiltrates and moderate right pleural effusion. Signed by Kamron Kaufman MD 05/20/2016 02:58 P
[2016-05-20 15:39] LABS: ABG BASE EXCESS 25.4 (-2.0-2.0); ABG HCO3 59.4 MEQ/L (22.0-26.0); ABG PARTIAL PRESSURE O2 242.7 mmHg (75.0-100.0); ABG STANDARD HCO3 50.7 MEQ/L (22.0-26.0); ABG TOTAL CO2 63.6 MEQ/L (23.0-31.0); ABG pH (ARTERIAL) 7.259 UNITS (7.350-7.450)
[2016-05-20 15:55] LABS: ABG PARTIAL PRESSURE CO2 135.7 mmHg (35.0-45.0)
--- NOTE | 2016-05-20 16:04 | IPNPDOC ---
Subjective Date Seen The patient was seen on 05/20/16. Subjective Chief Complaint/HPI The patient is a 70-year-old female admitted with a reason for visit of Acute Exacerbation Chf;Asthma W/Copd Exacerbation. General: Denies: Chills, Night Sweats Constitutional: Denies: Chills, Fever Eyes: Denies: Pain, Vision change ENT: Denies: Ear Pain, Head Aches Skin: Denies: Lesions, Rash Pulmonary: Reports: Cough, Dyspnea Cardiovascular: Denies: Chest Pain, Palpitations Gastrointestinal: Denies: Nausea, Vomiting Genitourinary: Denies: Dysuria, Frequency Hematologic: Denies: Bleeding Excessively, Bruising Objective Physical Examination General Exam: Positive: Alert, Cooperative, No Acute Distress ENT Exam: Positive: Atraumatic, Mucous membr. moist/pink Neck Exam: Positive: JVD Chest Exam: Positive: Diminished, Other (Decreased air movement), Wheezing Heart Exam: Positive: Normal S1, Normal S2, Tachycardic Abdomen Exam: Positive: Soft, Negative: Tenderness Extremity Exam: Positive: Swelling (1+ non-pitting edema in LE B/L), Negative: Tenderness Assessment /Plan Plan/VTE VTE Prophylaxis Ordered?: Yes Plan Hypercarbic Respiratory Failure 2/2 COPD exacerbation, HCAP Patient's ABG notable for markedly elevated CO2 levels CT Chest Noted The patient has refused BiPAP on admission despite elevated CO2 levels noted earlier here on multiple occasions, however after explaining to her at the bedside the need for BiPAP and discussing this with her daughter who is her healthcare proxy, the patient appears amenable to BiPAP therapy at this time. I did discuss the patient's CODE STATUS with her healthcare proxy, daughter Lizbeth Das and she states that she has had multiple discussions with her mother in the past and that her mother would like to be DO NOT RESUSCITATE and DO NOT INTUBATE CODE STATUS. A MOLST form was signed and placed in the chart. Continue on steroids, nebs. Broad spectrum antibiotics have also been added We will give the patient a trial of BiPAP therapy, and continue to monitor the patient's respiratory status Repeat ABG following BiPAP ordered. Acute decompensated CHF exacerbation with a preserved EF. Echocardiogram notable for diastolic dysfunction IV Lasix transitioned to PO Lasix Appears volume compensated at this time Fluid restriction Daily weights Monitor I's and O's We will continue to monitor her volume status Hx of Depression Patient stated today that she no longer wanted to live, when I visited her at the bedside The patient states, "I just want to ." After reviewing her history, it appears that the patient had multiple suicide attempts in the past following the of her 4 years ago, and she has been admitted here in the inpatient mental health unit for psychiatric stabilization. I did discuss the case with Dr. Joseph of psychiatry who did briefly see the patient here in the past, and we will keep the patient on one-to-one suicide precautions We will consult psychiatry when the patient is medically stable NSTEMI EKG on admission notable for ST depressions in the lateral leads. Troponin level has peaked at 0.61, and has down trended thereafter Chest pain had resolved in the ED, and the patient denies any complaints of chest pain at this time. Patient refused transfer to [place] after discussion with Dr. Martinez, who the patient has seen in the past. We will continue the patient on Lovenox twice a day for 3 days total, aspirin and Plavix-as per the recommendation of cardiology Tobacco abuse counseling cessation; nicotine patch GERD continue PPI History of uterine cancer DVT prophylaxis- Already on Enoxaparin Disposition: As noted above, I did have an extensive discussion with the patient 's healthcare proxy/daughter Lizbeth Das, and the patient has been changed to a DO NOT RESUSCITATE and DO NOT INTUBATE CODE STATUS. At the current time, we will give the patient a trial of BiPAP therapy in view of her hypercarbic respiratory failure. The patient does have what appears to be end-stage COPD, with a history of nonadherence to medical therapy/medications, and continued tobacco abuse. Her long-term prognosis is poor, and this was discussed with her daughter as noted above. We will continue to monitor her respiratory status moving forward here. VS, I&O, 24H, Fishbone Vital Signs/I&O Vital Signs Date Time Temp Pulse Resp B/P Pulse Ox O2 Delivery O2 Flow Rate FiO2 05/20/16 12:00 97.1 101 20 105/58 99 Nasal Cannula 6.0 I&O- Last 24 Hours up to 6 AM 05/20/16 06:00 Intake Total 410 ml Output Total 2200 ml Balance -1790 ml Laboratory Data 24H LABS Laboratory Tests 2 05/20/16 05:57: Blood Urea Nitrogen 25H, Creatinine 0.84, Sodium Level 142, Potassium Level 2.9# *L, Chloride Level 85L, Carbon Dioxide Level 52H, Calcium Level 8.8, Aspartate Amino Transf (AST/SGOT) 22, Alanine Aminotransferase (ALT/SGPT) 23, Alkaline Phosphatase 66, Total Bilirubin 0.3, Total Protein 6.7, Albumin 3.1L, Albumin/ Globulin Ratio 0.86L, Anion Gap 5L, Glomerular Filtration Rate > 60.0, Magnesium Level 1.8 05/20/16 15:25: Arterial Blood pH 7.259L, Arterial Blood Partial Pressure CO2 135.7*H, Arterial Blood Partial Pressure O2 242.7H, Arterial Blood Total CO2 63.6H, Arterial Blood HCO3 59.4H, Arterial Blood Base Excess 25.4H, Arterial Blood Oxygen Saturation 99.8H, Blood Gas Bicarbonate Standard 50.7H CBC/BMP Laboratory Tests 05/20/16 05:57 Calcium Level 8.8, Aspartate Amino Transf (AST/SGOT) 22, Alanine Aminotransferase (ALT/SGPT) 23, Alkaline Phosphatase 66, Total Bilirubin 0.3, Total Protein 6.7, Albumin 3.1 L, Red Blood Count 4.20, Mean Corpuscular Volume 85.8, Mean Corpuscular Hemoglobin 26.6 L, Mean Corpuscular Hemoglobin Concent 31.0 L, Red Cell Distribution Width 15.2 H TERRY PRO MD May 20, 2016 16:03
[2016-05-20] MEDS: PIPERACILLIN/TAZOBACTAM SOD 3.375 GM in D5W MINI-BAG PLUS 50 ML IV SCH ×2 (17:45→23:10)
[2016-05-20 19:31] LABS: ABG BASE EXCESS 21.7 (-2.0-2.0); ABG HCO3 55.1 MEQ/L (22.0-26.0); ABG PARTIAL PRESSURE O2 69.8 mmHg (75.0-100.0); ABG STANDARD HCO3 46.1 MEQ/L (22.0-26.0); ABG TOTAL CO2 59.1 MEQ/L (23.0-31.0)
[2016-05-20 19:33] LABS: ABG pH (ARTERIAL) 7.248 UNITS (7.350-7.450)
[2016-05-20 19:34] LABS: ABG PARTIAL PRESSURE CO2 129.1 mmHg (35.0-45.0)
[2016-05-20] MEDS ORDERED: VANCOMYCIN HCL 1,000 MG, VIAL MATE ADAPTER 1 EACH in D5W 250 ML IV SCH (20:00)
[2016-05-20] MEDS ORDERED: methylPREDNISolone INJ 125 MG/2 ML VIAL (J2930) IV SCH (22:00)
[2016-05-20 23:52] LABS: ABG BASE EXCESS 15.3 (-2.0-2.0); ABG HCO3 47.8 MEQ/L (22.0-26.0); ABG PARTIAL PRESSURE O2 59.5 mmHg (75.0-100.0); ABG TOTAL CO2 51.4 MEQ/L (23.0-31.0)
[2016-05-20 23:55] LABS: ABG PARTIAL PRESSURE CO2 117.3 mmHg (35.0-45.0); ABG pH (ARTERIAL) 7.228 UNITS (7.350-7.450)
[2016-05-21] VITALS: BP 113/55
[2016-05-21 01:00] VITALS: BP 113/55
--- NOTE | 2016-05-21 01:20 | REPUSA ---
CLINICAL HISTORY: Shortness of breath. COMMENTS: Comparison is made to the prior exam on 07/02/2015. The cardiac silhouette is enlarged. There is evidence for pulmonary venous congestion compatible with CHF. Interval appearance of bilateral perihilar patchy pulmonary infiltrates more prominent in the r ight midlung zone. Bony structures appear normal. IMPRESSION: 1. Enlarged cardiac silhouette. 2. Pulmonary venous congestion compatible with CHF. This has significantly increased. 3. Interval appearance of bilateral perihilar pulmonary infiltrates more prominent in the right midlu ng zone suggestive of superimposed multifocal bronchopneumonia. Thank you for your kind referral of this patient.
[2016-05-21] MEDS ORDERED: ATROPINE SULFATE 1% OP SOLN 2 ML BTL SL PRN (01:30)
[2016-05-21] MEDS ORDERED: SCOPOLAMINE 1.5 MG TRANSDERMAL TD PRN (01:30)
[2016-05-21] MEDS ORDERED: MORPHINE 4 MG/ML 1ML SYRINGE IV PRN (01:30)
[2016-05-21] MEDS ORDERED: LORazepam 2 MG/ML VIAL (J2060) IV PRN (01:30)
[2016-05-21] MEDS ORDERED: MORPHINE 10MG/0.5ML ORAL CONCENTRATE SOLUTION U/D SL PRN (01:30)
[2016-05-21] MEDS: IPRATROPIUM 0.5MG/ALBUTEROL 2.5MG INH SOL UD 3ML (DUONEB)(J7620) NEB SCH ×2 (03:52)
--- NOTE | 2016-05-21 04:40 | CCN ---
DATE: 05/21/2016 TIME: 12:19 a.m. I was called emergently to the bedside due to significant desaturation, currently 84%-87% on BiPAP therapy, FiO2 of 70%. Patient is incoherent. No significant improvement on repeat ABGs, still consistently with a pH of 7.2 and CO2 level greater than 110. She previously was 124 CO2, currently at 114. Patient is maximized on full therapy for asthma with IV steroids as well as congestive heart failure (CHF) with IV Lasix. Appears to be diuresing well. Output one liter yesterday, 1.5 liters today. Patient's systolic pressure is still well-maintained. I have spoken with her daughter who is the health care proxy, Lizbeth Das; phone number [phone], regarding her mother's poor prognosis overall with no significant improvement on BiPAP therapy, IV steroids, antibiotics, and diuretics. She is currently also being treated for acute coronary syndrome for non-ST elevation myocardial infarction with subcutaneous Lovenox with multiple ecchymotic areas at the bedside. Daughter will be coming in and is open to comfort measures only. She has confirmed DO NOT RESUSCITATE/DO NOT INTUBATE. Dr. Brunilda Vasquez, pulmonary critical care, has also been consulted to manage patient's BiPAP if possible. At this time, patient is maintained on BiPAP 18/8, FiO2 of 70%. Saturations remaining at 87%- 88%. PHYSICAL EXAMINATION: VITAL SIGNS: Temperature 97.3, pulse 104, respiratory rate 20, blood pressure 120/86, 94%, FiO2 of 70%, flow rate of 6 liters. GENERAL: The patient is moderately dressed. She is incoherent. LUNGS: Diminished breath sounds. Coarse expiratory wheezing bilaterally. HEART: S1, S2, irregularly irregular, tachycardic. ABDOMEN: Soft, nontender, nondistended. Positive bowel sounds. EXTREMITIES: No pitting edema. Patient had multiple ecchymotic areas on the dorsum of the hand as well as the left lower quadrant of the abdomen from Lovenox injections. LABORATORY DATA: Arterial blood gas currently is 7.228, CO2 of 117, O2 of 59.5. BiPAP: 18/8, FiO2 of 70%, 6 liters of oxygen flow rate. White count 10, hemoglobin 11, hematocrit 36, platelet count 243. Sodium 142, repeat potassium 3.6, chloride 85, bicarbonate 52, BUN 25, creatinine 0.84, glucose 154, troponin 0.54, total CK of 262, MB fraction of 3.9. Microbiology, 05/20: Respiratory panel is negative. IMAGING STUDIES: CT chest, 05/20: Moderate right effusion, right middle lobe consolidation with air bronchograms and scattered right lower lobe infiltrates. ASSESSMENT AND PLAN: 1. This is a 70-year-old female, DO NOT RESUSCITATE/DO NOT INTUBATE, currently on BiPAP therapy being treated for acute hypercarbic respiratory failure secondary to health care-associated pneumonia and chronic obstructive pulmonary disease (COPD) exacerbation. Patient despite resuscitation and BiPAP therapy remains lethargic with persistent acidosis and elevated CO2 levels. Patient's health care proxy, Lizbeth Das, has confirmed DO NOT RESUSCITATE/DO NOT INTUBATE status. Due to the progressive nature of her illness, I have asked her to come into the hospital to discuss comfort measures only If no significant improvement in CO2 levels with increasing requirement for FiO2. I have spoken to Dr. Vasquez, who is role player available this evening on-call, who will instruct the respiratory therapist to adjust her BiPAP settings to see if there would be any significant improvement, potentially changing her tidal volume. At this time, I will also repeat a chest x-ray. Patient appears to be euvolemic. She has no pitting edema at the bedside. She is maximized on IV steroids as well as antibiotics, and currently also being treated for acute non-ST elevation myocardial infarction. 2. Non-ST elevation myocardial infarction. Patient is maximized, currently on Lovenox therapy, aspirin, Plavix, and Lipitor. 3. Health care-associated pneumonia on supplemental oxygen, vancomycin, Zosyn, nebulizer treatments. Patient has poor general overall prognosis, is DO NOT RESUSCITATE/DO NOT INTUBATE. If no significant improvement with new changes on BiPAP settings by Dr. 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 Will discuss this as we continue to monitor her through the morning.
--- NOTE | 2016-05-21 04:44 | CCN ---
DATE: 05/21/2016 As of 01:21 this morning, patient's family at the bedside I have decided on comfort measures only in accordance with the patient's prior wishes of no further resuscitation. Patient has had no significant improvement on BiPAP therapy and requested for the BiPAP to be removed and all active treatments to be discontinued. Patient is currently comfort measures only, DO NOT RESUSCITATE/DO NOT INTUBATE. Patient will be given Ativan, Roxanol, scopolamine, and atropine as needed.
[2016-05-21] MEDS ORDERED: MORPHINE 2 MG/ML 1ML SYRINGE IV PRN (07:15)
--- NOTE | 2016-05-21 15:43 | DS.PDOC ---
Discharge Summary General Date of Admission May 18, 2016 at 18:45 Date of Discharge May 21, 2016 at 06:04 Discharge Summary 70-year-old female past medical history of COPD, CAD status post PCI, CHF, history of CVA with no residual symptoms, hypertension, uterine cancer, GERD who initially presented to the ER with the chief complaint of worsening SOB and Chest Pain. During the course of her hospitalization she was treated for decompensated congestive heart failure, COPD exacerbation, and a non-ST elevation [place]. She also developed Health Care Associated Pneumonia. Over the last 48 hours the patient had deteriorated further clinically. The patient's daughter, and HCP Lizbeth decided to make the patient Comfort Measures Only during the early hours of 05/21/16 due to respiratory failure and given her poor prognosis. The patient was pronounced at 0607 am on 05/21/16. Vital Signs/I&Os Vital Signs Date Time Temp Pulse Resp B/P Pulse Ox O2 Delivery O2 Flow Rate FiO2 05/21/16 01:00 98.2 102 18 113/55 85 NIPPV (BIPAP/CPAP) 70 05/20/16 16:00 6.0 I&O- Last 24 Hours up to 6 AM 05/21/16 06:00 Intake Total 240 ml Output Total 600 ml Balance -360 ml Laboratory Data Labs 24H Laboratory Tests 2 05/20/16 19:23: Arterial Blood pH 7.248*L, Arterial Blood Partial Pressure CO2 129.1*H, Arterial Blood Partial Pressure O2 69.8L, Arterial Blood Total CO2 59.1H, Arterial Blood HCO3 55.1H, Arterial Blood Base Excess 21.7H, Arterial Blood Oxygen Saturation 91.1L, Arterial Blood Gas Puncture Site RT RADIAL, Blood Gas Bicarbonate Standard 46.1H 05/20/16 23:43: Arterial Blood pH 7.228*L, Arterial Blood Partial Pressure CO2 117.3*H, Arterial Blood Partial Pressure O2 59.5L, Arterial Blood Total CO2 51.4H, Arterial Blood HCO3 47.8H, Arterial Blood Base Excess 15.3H, Arterial Blood Oxygen Saturation 86.2L, Arterial Blood Gas Puncture Site LT RADIAL, Blood Gas Bicarbonate Standard 39.0H CBC/BMP Laboratory Tests 05/20/16 17:10 Microbiology Microbiology 05/20/16 Respiratory Virus Panel (PCR) (CHRISTOPHER) - Final, Complete Medications Scheduled (Anoro Ellipta 62.5-25 Mcg/INH) 1 Aer Aer 1 AER INH DAILY Amlodipine Besylate (Norvasc) 10 Mg Tab 10 MG PO DAILY Aspirin (Aspirin 81) 81 Mg Tab 81 MG PO DAILY Atorvastatin Calcium (Lipitor) 80 Mg Tab 80 MG PO DAILY Clopidogrel Bisulfate (Plavix) 75 Mg Tab 75 MG PO DAILY Magnesium Oxide (Magnesium Oxide) 400 Mg Tab 400 MG PO DAILY Metoclopramide HCl (Metoclopramide HCl) 5 Mg Tab 5 MG PO DAILY Pantoprazole Sodium Sesquihydr (Protonix) 40 Mg Tab 40 MG PO DAILY Potassium Chloride (Klor-Con M10) 10 Meq Tabcr 20 MEQ PO DAILY Scheduled PRN (Azelastine HCl) 0.15 % Spr 2 SPRAYS NA BID PRN PRN ALLERGIES Albuterol/Ipratropium (Combivent Respimat 20-100 Mcg/Act) 1 Aer Aer 1 PUFF INH QIDP PRN PRN SHORTNESS OF BREATH Allergies Coded Allergies: Loratadine (Verified Allergy, Severe, TONGUE SWELLING, 12/08/12) Pseudoephedrine (Verified Allergy, Severe, TONGUE SWELLING, 12/08/12) TERRY PRO MD May 21, 2016 15:43
--- NOTE | 2016-05-21 18:48 | EDDOCDS ---
Physician Documentation [facility] Name: Roberta Welch Age: 70 yrs Sex: Female : 1945 Arrival Date: 05/18/2016 Time: 14:22 Bed Admit Hold Private MD: Brown Trotter NCFM Disposition: 05/18/16 17:33 Hospitalization ordered by Beto Sparks for Inpatient Admission. Preliminary diagnosis are Non-ST elevation (NSTEMI) myocardial infarction, Hypokalemia. - [facility] - Status is Inpatient Admission. aa3 - Condition is Stable. - Problem is new. - Symptoms are unchanged. Historical: - Allergies: no known allergies; - Home Meds: 1. amlodipine 10 mg Oral tab 1 tab once daily 2. Anoro Ellipta 62.5-25 mcg/actuation inhalation dsdv 1 puff once daily 3. atorvastatin 80 mg oral tab 1 tab once daily 4. aspirin 81 mg Oral chew 1 tab once daily 5. azelastine 0.15 % (205.5 mcg) nasal spry 1 spray 2 times per day 6. Combivent 18-103 mcg/actuation Inhl aero 2 puffs 4 times per day 7. Klor-Con M20 20 mEq Oral TbTQ 1 tab once daily 8. magnesium oxide 400 mg Oral tab daily 9. metoclopramide HCl 5 mg Oral tab 1 tab once daily 10. Plavix 75 mg Oral tab 1 tab once daily 11. Protonix 40 mg Oral TbEC 1 tab once daily - PMHx: CAD; Cancer, Uterine; COPD; CVA; Hypertension; - PSHx: Hysterectomy; Cardiac stents; - Social history: Smoking status: Patient uses tobacco products, current some day smoker. No barriers to communication noted, The patient speaks fluent Welsh. - Family history: Not pertinent. - : The pt / caregiver states he / she is on anticoagulants: Plavix. Home medication list is obtained from. - Exposure Risk Screening:: None identified. Vital Signs: 05/18 14:39 BP 123 / 56; Pulse 117; Resp 28; Temp 98.8; Pulse Ox 86% on 4 lpm NC; Weight 61.23 kg / jmk 134.99 lbs; Height 5 ft. 2 in. (157.48 cm); 16:28 BP 122 / 57 (auto/); jmk 16:28 Pulse 114 MON; Resp 28; Pulse Ox 88% ; jmk 17:58 BP 109 / 51 (auto/); jmk 17:58 Pulse 114 MON; Resp 28; Pulse Ox 68% ; jmk 18:28 BP 151 / 63 (auto/); jmk 18:28 Pulse 114 MON; Pulse Ox 95% ; jmk 18:50 BP 128 / 58 (auto/); jmk 18:50 Pulse 108 MON; Resp 24; Pulse Ox 94% ; jmk 18:58 BP 130 / 60 (auto/); nn1 18:58 Pulse 108 MON; Pulse Ox 93% ; nn1 19:13 BP 129 / 54 (auto/); nn1 19:13 Pulse 106 MON; Pulse Ox 95% ; nn1 19:28 BP 151 / 68 (auto/); nn1 19:28 Pulse 114 MON; Pulse Ox 88% ; nn1 19:31 Temp 97.6(O); nn1 19:31 Resp 24 S; nn1 19:32 Pulse Ox 4 lpm NC; nn1 21:19 BP 118 / 56 (auto/); kas2 21:19 Pulse 108 MON; kas2 14:39 Body Mass Index 24.69 (61.23 kg, 157.48 cm) k MDM: 14:42 Engine Maintenance Mechanic/Pulse Ox/q 30 min VS ordered. br1 14:42 IV Saline Lock ordered. br1 14:42 Rhythm Strip to chart ordered. br1 14:42 Undress patient appropriately for examination ordered. br1 14:43 Basic Metabolic Profile Ordered. EDMS 14:43 CBC with Diff Ordered. EDMS 14:43 Cardiac Injury Profile Ordered. EDMS 14:43 Troponin Ordered. EDMS 14:44 ECG WITH READING ER PHYS+CARDIAG ordered. EDMS 14:56 Oxygen at 2L/min via NC ordered. br1 14:56 Albuterol-Ipratropium 1 neb Nebulizer every 20 minutes x3 ordered. br1 14:56 Call Respiratory ordered. br1 14:57 Chest, 1 View Ordered. EDMS 14:57 BNP Ordered. EDMS 14:59 BED REQUEST+ADM ordered. EDMS 15:06 Call Respiratory complete. cs15 15:38 DIFFERENTIAL NO CHARGE Ordered. EDMS 15:38 PLATELET ESTIMATE Ordered. EDMS 15:55 CBC with Diff Reviewed. br1 15:56 Furosemide 40 mg IVP once ordered. br1 15:56 BNP Reviewed. br1 16:15 Chest, 1 View Reviewed. br1 16:39 Financial registration complete. gjb 16:41 [facility] Payment Agreement was scanned into [employer] and attached to record. gjb 16:46 CBC with Diff Reviewed. br1 16:46 PLATELET ESTIMATE Reviewed. br1 16:51 Basic Metabolic Profile Reviewed. br1 16:51 Cardiac Injury Profile Reviewed. br1 16:51 Troponin Reviewed. br1 16:51 Potassium Chloride Extended Release Tablet 40 mEq PO once ordered. br1 17:02 Plavix - Clopidogrel 300 mg PO once ordered. br1 18:02 Albuterol 2.5 mg Nebulizer once ordered. br1 18:34 Recheck Vital Signs, perform reassessment and enter into [employer] ordered. br1 18:44 ARTERIAL BLOOD GAS Ordered. EDMS 18:52 Admission / Observation Status ordered. EDMS 18:52 ECG WITH READING ER PHYS+CARDIAG ordered. EDMS 18:52 2 GRAM SODIUM DIET ordered. EDMS 18:53 LOW FAT LOW CHOLESTEROL DIET ordered. EDMS 19:33 CARDIAC INJURY PROFILE Ordered. EDMS 19:33 CARDIAC INJURY PROFILE Ordered. EDMS 19:33 TROPONIN Ordered. EDMS 19:33 TROPONIN Ordered. EDMS 19:33 COMPLETE BLOOD COUNT Ordered. EDMS 19:33 COMPLETE COMPHRENSIVE METABOLI Ordered. EDMS 20:19 MAGNESIUM LEVEL Ordered. EDMS 20:19 CARDIAC INJURY PROFILE Ordered. EDMS 20:19 TROPONIN Ordered. EDMS 20:32 Nicoderm CQ Patch 14 mg/24 hr 1 patches Transdermal once ordered. kas2 20:32 diphenhydrAMINE 25 mg PO once ordered. kas2 20:35 Written Provider Order was scanned into [employer] and attached to record. tmm1 21:13 Admission / Observation Status ordered. EDMS 21:14 BIPAP INPATIENT ordered. EDMS 22:11 Written Provider Order was scanned into [employer] and attached to record. tmm1 05/20 14:50 T-Sheet-- Draft Copy was scanned into [employer] and attached to record. gb 14:50 ECG/EKG was scanned into [employer] and attached to record. gb Administered Medications: 05/18 15:07 Drug: Albuterol-Ipratropium 1 neb [ipratropium-albuterol 0.5 mg-3 mg(2.5 mg base)/3 mL cs15 nebulization soln (1 neb)] Route: Nebulizer; 15:24 Drug: Albuterol-Ipratropium 1 neb [ipratropium-albuterol 0.5 mg-3 mg(2.5 mg base)/3 mL cs15 nebulization soln (1 neb)] Route: Nebulizer; 15:24 Follow up: Response: Wheezing has decreased cs15 16:00 Drug: Albuterol-Ipratropium 1 neb [ipratropium-albuterol 0.5 mg-3 mg(2.5 mg base)/3 mL cs15 nebulization soln (1 neb)] Route: Nebulizer; 16:38 Drug: Furosemide 40 mg [furosemide 10 mg/mL injection solution (4 mL)] Route: IVP; [facility] Site: left forearm; 18:25 Drug: Albuterol 2.5 mg [albuterol sulfate 2.5 mg/0.5 mL solution for nebulization (0.5 cs15 mL)] Route: Nebulizer; 18:51 Drug: Plavix - Clopidogrel 300 mg [clopidogrel 75 mg tablet (4 tabs)] Route: PO; rs3 19:02 Drug: Potassium Chloride 40 mEq [potassium chloride ER 10 mEq tablet,extended release jmk (4 tabs)] Route: PO; 21:55 Drug: Nicoderm CQ Patch 14 mg/24 hr 1 patches Route: Transdermal; Site: left upper arm; kas2 23:12 Drug: diphenhydrAMINE 25 mg [diphenhydramine 25 mg capsule (1 caps)] Route: PO; kas2 Signatures: Dispatcher [employer] EDMS Saurabh Tomas,RN RN Ly Ledezma, Reg Reg Deion Nelson MD MD br1 Angella Whitfield, WEIGHER AND MIXER WEIGHER AND MIXER tmm1 Nidia EnamoradoRN RN aa3 Jamison Stevens RN STEFFANIE [facility] Sony Fowler,RT RT cs15 Annia Burton Kim, RN RN kas2 Amirah Jennings RN rs3 The chart was reviewed and I authenticate all verbal orders and agree with the evaluation and treatment provided.Corrections: (The following items were deleted from the chart) 20:18 19:33 CARDIAC INJURY PROFILE ordered. EDMS EDMS 20:18 19:33 TROPONIN ordered. EDMS EDMS 20:18 19:34 MAGNESIUM LEVEL ordered. EDMS EDMS 22:17 22:17 ARTERIAL BLOOD GAS ordered. EDMS EDMS 22:17 22:17 ARTERIAL BLOOD GAS ordered. EDMS EDMS 23:24 21:14 ARTERIAL BLOOD GAS ordered. EDMS EDMS Attachments: 16:41 [facility] Payment Agreement gjb 20:35 Written Provider Order tmm1 22:11 Written Provider Order tmm1 05/20 14:50 T-Sheet-- Draft Copy gb 14:50 ECG/EKG gb Chart Complete MTDD
--- NOTE | 2016-05-21 18:48 | EDDOCDS ---
Physician Documentation [facility] Name: Roberta Welch Age: 70 yrs Sex: Female : 1945 Arrival Date: 05/18/2016 Time: 14:22 Bed Admit Hold Private MD: Brown Trotter NCFM Disposition: 05/18/16 17:33 Hospitalization ordered by Beto Sparks for Inpatient Admission. Preliminary diagnosis are Non-ST elevation (NSTEMI) myocardial infarction, Hypokalemia. - [facility] - Status is Inpatient Admission. aa3 - Condition is Stable. - Problem is new. - Symptoms are unchanged. Historical: - Allergies: no known allergies; - Home Meds: 1. amlodipine 10 mg Oral tab 1 tab once daily 2. Anoro Ellipta 62.5-25 mcg/actuation inhalation dsdv 1 puff once daily 3. atorvastatin 80 mg oral tab 1 tab once daily 4. aspirin 81 mg Oral chew 1 tab once daily 5. azelastine 0.15 % (205.5 mcg) nasal spry 1 spray 2 times per day 6. Combivent 18-103 mcg/actuation Inhl aero 2 puffs 4 times per day 7. Klor-Con M20 20 mEq Oral TbTQ 1 tab once daily 8. magnesium oxide 400 mg Oral tab daily 9. metoclopramide HCl 5 mg Oral tab 1 tab once daily 10. Plavix 75 mg Oral tab 1 tab once daily 11. Protonix 40 mg Oral TbEC 1 tab once daily - PMHx: CAD; Cancer, Uterine; COPD; CVA; Hypertension; - PSHx: Hysterectomy; Cardiac stents; - Social history: Smoking status: Patient uses tobacco products, current some day smoker. No barriers to communication noted, The patient speaks fluent [place]. - Family history: Not pertinent. - : The pt / caregiver states he / she is on anticoagulants: Plavix. Home medication list is obtained from. - Exposure Risk Screening:: None identified. Vital Signs: 05/18 14:39 BP 123 / 56; Pulse 117; Resp 28; Temp 98.8; Pulse Ox 86% on 4 lpm NC; Weight 61.23 kg / jmk 134.99 lbs; Height 5 ft. 2 in. (157.48 cm); 16:28 BP 122 / 57 (auto/); jmk 16:28 Pulse 114 MON; Resp 28; Pulse Ox 88% ; jmk 17:58 BP 109 / 51 (auto/); jmk 17:58 Pulse 114 MON; Resp 28; Pulse Ox 68% ; jmk 18:28 BP 151 / 63 (auto/); jmk 18:28 Pulse 114 MON; Pulse Ox 95% ; jmk 18:50 BP 128 / 58 (auto/); jmk 18:50 Pulse 108 MON; Resp 24; Pulse Ox 94% ; jmk 18:58 BP 130 / 60 (auto/); nn1 18:58 Pulse 108 MON; Pulse Ox 93% ; nn1 19:13 BP 129 / 54 (auto/); nn1 19:13 Pulse 106 MON; Pulse Ox 95% ; nn1 19:28 BP 151 / 68 (auto/); nn1 19:28 Pulse 114 MON; Pulse Ox 88% ; nn1 19:31 Temp 97.6(O); nn1 19:31 Resp 24 S; nn1 19:32 Pulse Ox 4 lpm NC; nn1 21:19 BP 118 / 56 (auto/); kas2 21:19 Pulse 108 MON; kas2 14:39 Body Mass Index 24.69 (61.23 kg, 157.48 cm) k MDM: 14:42 Jig Worker/Pulse Ox/q 30 min VS ordered. br1 14:42 IV Saline Lock ordered. br1 14:42 Rhythm Strip to chart ordered. br1 14:42 Undress patient appropriately for examination ordered. br1 14:43 Basic Metabolic Profile Ordered. EDMS 14:43 CBC with Diff Ordered. EDMS 14:43 Cardiac Injury Profile Ordered. EDMS 14:43 Troponin Ordered. EDMS 14:44 ECG WITH READING ER PHYS+CARDIAG ordered. EDMS 14:56 Oxygen at 2L/min via NC ordered. br1 14:56 Albuterol-Ipratropium 1 neb Nebulizer every 20 minutes x3 ordered. br1 14:56 Call Respiratory ordered. br1 14:57 Chest, 1 View Ordered. EDMS 14:57 BNP Ordered. EDMS 14:59 BED REQUEST+ADM ordered. EDMS 15:06 Call Respiratory complete. cs15 15:38 DIFFERENTIAL NO CHARGE Ordered. EDMS 15:38 PLATELET ESTIMATE Ordered. EDMS 15:55 CBC with Diff Reviewed. br1 15:56 Furosemide 40 mg IVP once ordered. br1 15:56 BNP Reviewed. br1 16:15 Chest, 1 View Reviewed. br1 16:39 Financial registration complete. gjb 16:41 [facility] Payment Agreement was scanned into [employer] and attached to record. gjb 16:46 CBC with Diff Reviewed. br1 16:46 PLATELET ESTIMATE Reviewed. br1 16:51 Basic Metabolic Profile Reviewed. br1 16:51 Cardiac Injury Profile Reviewed. br1 16:51 Troponin Reviewed. br1 16:51 Potassium Chloride Extended Release Tablet 40 mEq PO once ordered. br1 17:02 Plavix - Clopidogrel 300 mg PO once ordered. br1 18:02 Albuterol 2.5 mg Nebulizer once ordered. br1 18:34 Recheck Vital Signs, perform reassessment and enter into [employer] ordered. br1 18:44 ARTERIAL BLOOD GAS Ordered. EDMS 18:52 Admission / Observation Status ordered. EDMS 18:52 ECG WITH READING ER PHYS+CARDIAG ordered. EDMS 18:52 2 GRAM SODIUM DIET ordered. EDMS 18:53 LOW FAT LOW CHOLESTEROL DIET ordered. EDMS 19:33 CARDIAC INJURY PROFILE Ordered. EDMS 19:33 CARDIAC INJURY PROFILE Ordered. EDMS 19:33 TROPONIN Ordered. EDMS 19:33 TROPONIN Ordered. EDMS 19:33 COMPLETE BLOOD COUNT Ordered. EDMS 19:33 COMPLETE COMPHRENSIVE METABOLI Ordered. EDMS 20:19 MAGNESIUM LEVEL Ordered. EDMS 20:19 CARDIAC INJURY PROFILE Ordered. EDMS 20:19 TROPONIN Ordered. EDMS 20:32 Nicoderm CQ Patch 14 mg/24 hr 1 patches Transdermal once ordered. kas2 20:32 diphenhydrAMINE 25 mg PO once ordered. kas2 20:35 Written Provider Order was scanned into [employer] and attached to record. tmm1 21:13 Admission / Observation Status ordered. EDMS 21:14 BIPAP INPATIENT ordered. EDMS 22:11 Written Provider Order was scanned into [employer] and attached to record. tmm1 05/20 14:50 T-Sheet-- Draft Copy was scanned into [employer] and attached to record. gb 14:50 ECG/EKG was scanned into [employer] and attached to record. gb Administered Medications: 05/18 15:07 Drug: Albuterol-Ipratropium 1 neb [ipratropium-albuterol 0.5 mg-3 mg(2.5 mg base)/3 mL cs15 nebulization soln (1 neb)] Route: Nebulizer; 15:24 Drug: Albuterol-Ipratropium 1 neb [ipratropium-albuterol 0.5 mg-3 mg(2.5 mg base)/3 mL cs15 nebulization soln (1 neb)] Route: Nebulizer; 15:24 Follow up: Response: Wheezing has decreased cs15 16:00 Drug: Albuterol-Ipratropium 1 neb [ipratropium-albuterol 0.5 mg-3 mg(2.5 mg base)/3 mL cs15 nebulization soln (1 neb)] Route: Nebulizer; 16:38 Drug: Furosemide 40 mg [furosemide 10 mg/mL injection solution (4 mL)] Route: IVP; [facility] Site: left forearm; 18:25 Drug: Albuterol 2.5 mg [albuterol sulfate 2.5 mg/0.5 mL solution for nebulization (0.5 cs15 mL)] Route: Nebulizer; 18:51 Drug: Plavix - Clopidogrel 300 mg [clopidogrel 75 mg tablet (4 tabs)] Route: PO; rs3 19:02 Drug: Potassium Chloride 40 mEq [potassium chloride ER 10 mEq tablet,extended release jmk (4 tabs)] Route: PO; 21:55 Drug: Nicoderm CQ Patch 14 mg/24 hr 1 patches Route: Transdermal; Site: left upper arm; kas2 23:12 Drug: diphenhydrAMINE 25 mg [diphenhydramine 25 mg capsule (1 caps)] Route: PO; kas2 Signatures: Dispatcher [employer] EDMS Saurabh Tomas,RN RN Ly Ledezma, Reg Reg Deion Nelson MD MD br1 Angella Whitfield, LOG INSPECTOR LOG INSPECTOR tmm1 Nidia EnamoradoRN RN aa3 Jamison Stevens RN STEFFANIE [facility] Sony Fowler,RT RT cs15 Annia Burton Kim, RN RN kas2 Amirah Jennings RN rs3 The chart was reviewed and I authenticate all verbal orders and agree with the evaluation and treatment provided.Corrections: (The following items were deleted from the chart) 20:18 19:33 CARDIAC INJURY PROFILE ordered. EDMS EDMS 20:18 19:33 TROPONIN ordered. EDMS EDMS 20:18 19:34 MAGNESIUM LEVEL ordered. EDMS EDMS 22:17 22:17 ARTERIAL BLOOD GAS ordered. EDMS EDMS 22:17 22:17 ARTERIAL BLOOD GAS ordered. EDMS EDMS 23:24 21:14 ARTERIAL BLOOD GAS ordered. EDMS EDMS Attachments: 16:41 [facility] Payment Agreement gjb 20:35 Written Provider Order tmm1 22:11 Written Provider Order tmm1 05/20 14:50 T-Sheet-- Draft Copy gb 14:50 ECG/EKG gb Chart Complete MTDD
--- NOTE | 2016-05-21 18:49 | EDDOCDS ---
Nurse's Notes [facility] Name: Roberta Guerra Age: 70 yrs Sex: Female : 1945 Arrival Date: 05/18/2016 Time: 14:22 Bed Admit Hold Private MD: Brown Trotter NCFM Diagnosis: Non-ST elevation (NSTEMI) myocardial infarction;Hypokalemia Presentation: 05/18 14:27 Presenting complaint: Patient states: states ER visit for abd and chest pain.. pain jmk persists. states pain to left lateral chest discomfort with arm pain. reports breathing is more labored. 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 Adult Sepsis Screening: The patient does not have new or worsening altered mentation. Patient's respiratory rate is less than 22. Systolic blood pressure is greater than 100. Patient has a qSOFA score of 0- Negative Sepsis Screen. Suicide/Homicide risk assessment- the patient denies having any suicidal and/or homicidal ideations and does not present with any other emotional, behavioral or mental health complaints. 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 Transition of care: patient was not received from another setting of care. 14:27 Acuity: DELISA Level 3 [facility] 14:27 Method Of Arrival: Ambulance [facility] Triage Assessment: 14:33 General: Appears in no apparent distress. Pain: Unable to use pain scale. Does not jmk appear to understand pain scale. 14:39 Cardiovascular: Chest pain is described as unable to use pain scale. radiates Does not jmk radiate. episodes unable to provide details began. Respiratory: Breath sounds are coarse bilaterally. Historical: - Allergies: no known allergies; - Home Meds: 1. amlodipine 10 mg Oral tab 1 tab once daily 2. Anoro Ellipta 62.5-25 mcg/actuation inhalation dsdv 1 puff once daily 3. atorvastatin 80 mg oral tab 1 tab once daily 4. aspirin 81 mg Oral chew 1 tab once daily 5. azelastine 0.15 % (205.5 mcg) nasal spry 1 spray 2 times per day 6. Combivent 18-103 mcg/actuation Inhl aero 2 puffs 4 times per day 7. Klor-Con M20 20 mEq Oral TbTQ 1 tab once daily 8. magnesium oxide 400 mg Oral tab daily 9. metoclopramide HCl 5 mg Oral tab 1 tab once daily 10. Plavix 75 mg Oral tab 1 tab once daily 11. Protonix 40 mg Oral TbEC 1 tab once daily - PMHx: CAD; Cancer, Uterine; COPD; CVA; Hypertension; - PSHx: Hysterectomy; Cardiac stents; - Social history: Smoking status: Patient uses tobacco products, current some day smoker. No barriers to communication noted, The patient speaks fluent Mozamb[place]. - Family history: Not pertinent. - : The pt / caregiver states he / she is on anticoagulants: Plavix. Home medication list is obtained from. - Exposure Risk Screening:: None identified. Screenin:42 Screening information is obtained from the patient. Fall risk: No risks identified. jmk Assistance ADL's: requires no assistance with activities of daily living. Abuse/DV Screen: The patient / caregiver reports he/she is: not in a situation that causes fear, pain or injury. Nutritional screening: No deficits noted. Advance Directives: Currently, there is no health care proxy. There is no active DNR order. There is no living will. There is no Power of Business Mgr. home support is adequate. Assessment: 14:44 General: Appears in no apparent distress, responses are very surly. speech is jmk interrupted by resp effort. Labored. congested cough. decreased breath sounds to both bases. without peripheral edema. Indicates discomfort to left anterior chest ? breast area that is increased with palaption.. Cardiovascular: Capillary refill < 3 seconds Clubbing of nail beds is present Heart tones S1 S2 present Edema is absent. Respiratory: Airway is patent Respiratory effort is even, labored, Respiratory pattern is regular, Breath sounds are diminished bilaterally. 15:15 General: Appears reports pain to chest has decreased /. Unwilling or unable to provide jmk # scale. cough is now productive with using neb.. 16:38 General: Appears continues to be verbally abusive and manipulative. attempted jmk pacification without effect. monitor is st. remains tachypneic with berating. encouraged relaxation and comfort measures offered. provider aware of request for bedside visit. reports variety of complaints that change with each bedside intervention. 18:11 General: Appears decreased pulse ox noted, however, readily ingesting diet. presently jmk denies pain.. 18:13 General: Appears decreased BS. provider aware. additional neb requested.. jmk 18:54 General: Appears OOB to chair. decompensates with pulse ox decreased to 68%, however, maria esther pt had removed her oxygen. rapid resumptions of Sao2 to 76 with application of NRB for short duration, then 4l nc reapplied. monitor continues as sr/st.. 19:32 General: Patient in bed, breathing is slightly labored when speaking. Patient is nn1 pleasant at this time. Patient reports no complaints.. Neurological: Level of Consciousness is awake, alert, obeys commands, Oriented to person, place, time. Cardiovascular: Rhythm is sinus tachycardia. Respiratory: Airway is patent Respiratory effort is even, labored, Respiratory pattern is regular, Breath sounds are diminished bilaterally. Derm: Skin is pink, warm & dry. 20:53 General: Patient assisted to bedside commode, 150cc urine output. Patient OOB in nn1 bedside chair at this time. . 21:00 General: Verbal report given by Manasa Khan RN. Assumed care of patient at this time.. [facility] 21:30 General: RN tried to move patient to C2 to have RT apply BIPAP. Patient is refusing [facility] BIPAP. Dr. Sparks called and made aware of patients concerns. Dr. Sparks talked to patient on the phone. Patient is still refusing BIPAP at this time.. 22:00 General: Verbal report given to Mekhi Yusuf RN.. [facility] 05/19 10:21 General: Appears. mlb1 Vital Signs: 05/18 14:39 BP 123 / 56; Pulse 117; Resp 28; Temp 98.8; Pulse Ox 86% on 4 lpm NC; Weight 61.23 kg; [facility] Height 5 ft. 2 in. (157.48 cm); 16:28 BP 122 / 57 (auto/); k 16:28 Pulse 114 MON; Resp 28; Pulse Ox 88% ; jmk 17:58 BP 109 / 51 (auto/); jmk 17:58 Pulse 114 MON; Resp 28; Pulse Ox 68% ; jmk 18:28 BP 151 / 63 (auto/); jmk 18:28 Pulse 114 MON; Pulse Ox 95% ; jmk 18:50 BP 128 / 58 (auto/); jmk 18:50 Pulse 108 MON; Resp 24; Pulse Ox 94% ; jmk 18:58 BP 130 / 60 (auto/); nn1 18:58 Pulse 108 MON; Pulse Ox 93% ; nn1 19:13 BP 129 / 54 (auto/); nn1 19:13 Pulse 106 MON; Pulse Ox 95% ; nn1 19:28 BP 151 / 68 (auto/); nn1 19:28 Pulse 114 MON; Pulse Ox 88% ; nn1 19:31 Temp 97.6(O); nn1 19:31 Resp 24 S; nn1 19:32 Pulse Ox 4 lpm NC; nn1 21:19 BP 118 / 56 (auto/); kas2 21:19 Pulse 108 MON; kas2 14:39 Body Mass Index 24.69 (61.23 kg, 157.48 cm) [facility] Vitals: 14:39 Log In Time N/A - ambulance arrival. [facility] ED Course: 14:24 Patient visited by Kate Teixeira. mt4 14:24 Brown Trotter is Private Physician. mt4 14:24 Patient moved to Waiting mt4 14:26 Patient moved to 9 k 14:30 Triage Initiated jmk 14:42 Pablo Odonnell MD is Attending Physician. br1 14:42 The patient / caregiver is instructed regarding the plan of care and ED course. Cardiac [facility] monitor on. 14:42 Maintain field IV. Gauge & site: 20 to left forearm. jmk 14:45 Patient visited by Antony Rodriguez. jml1 14:45 EKG done. (by ED staff). Reviewed by Pablo Odonnell MD. jml1 14:46 Patient visited by Saurabh Tomas,STEFFANIE. jmk 14:56 Patient visited by Pablo Odonnell MD. br1 15:14 BNP Sent. jmk 15:15 Basic Metabolic Profile Sent. jmk 15:15 CBC with Diff Sent. jmk 15:15 Cardiac Injury Profile Sent. jmk 15:15 Troponin Sent. jmk 15:16 Patient visited by Saurabh Tomas,STEFFANIE. jmk 16:08 Chest, 1 View Returned. EDMS 16:15 DIFFERENTIAL NO CHARGE Sent. jmk 16:23 Patient visited by Antony Rodriguez. jml1 16:41 [facility] [place] Agreement was scanned into [employer] and attached to record. gjb 16:45 Patient visited by Sam Bunn PCA. jlf 16:55 Chest, 1 View Returned. EDMS 17:33 Beto Sparks is Hospitalizing Provider. br1 18:58 Patient visited by Sam Bunn PCA. jlf 18:58 EKG done. (by ED staff). Reviewed by Beto Sparks. jlf 20:35 Written Provider Order was scanned into [employer] and attached to record. tmm1 21:02 Patient moved to 18 nn1 21:[address] Cunningham regarding patients PCO2 level. . nn1 21:07 EKG-ADULT Returned. EDMS 21:08 Patient moved to Admit Hold sls1 21:15 Patient moved to 2 sls1 21:38 Patient moved to 18 sls1 21:39 Patient moved to Admit Hold sls1 22:01 Patient visited by Janell Das,STEFFANIE. kas2 22:08 Patient visited by Janell Das,STEFFANIE. kas2 22:11 Patient visited by Janell Das,STEFFANIE. kas2 22:11 Written Provider Order was scanned into [employer] and attached to record. tmm1 05/19 17:47 No procedures done that require assistance. aa3 05/20 14:50 T-Sheet-- Draft Copy was scanned into [employer] and attached to record. gb 14:50 ECG/EKG was scanned into [employer] and attached to record. gb Administered Medications: 05/18 15:07 Drug: Albuterol-Ipratropium 1 neb [ipratropium-albuterol 0.5 mg-3 mg(2.5 mg base)/3 mL cs15 nebulization soln (1 neb)] Route: Nebulizer; 15:24 Drug: Albuterol-Ipratropium 1 neb [ipratropium-albuterol 0.5 mg-3 mg(2.5 mg base)/3 mL cs15 nebulization soln (1 neb)] Route: Nebulizer; 15:24 Follow up: Response: Wheezing has decreased cs15 16:00 Drug: Albuterol-Ipratropium 1 neb [ipratropium-albuterol 0.5 mg-3 mg(2.5 mg base)/3 mL cs15 nebulization soln (1 neb)] Route: Nebulizer; 16:38 Drug: Furosemide 40 mg [furosemide 10 mg/mL injection solution (4 mL)] Route: IVP; maria esther Site: left forearm; 18:25 Drug: Albuterol 2.5 mg [albuterol sulfate 2.5 mg/0.5 mL solution for nebulization (0.5 cs15 mL)] Route: Nebulizer; 18:51 Drug: Plavix - Clopidogrel 300 mg [clopidogrel 75 mg tablet (4 tabs)] Route: PO; rs3 19:02 Drug: Potassium Chloride 40 mEq [potassium chloride ER 10 mEq tablet,extended release jmk (4 tabs)] Route: PO; 21:55 Drug: Nicoderm CQ Patch 14 mg/24 hr 1 patches Route: Transdermal; Site: left upper arm; kas2 23:12 Drug: diphenhydrAMINE 25 mg [diphenhydramine 25 mg capsule (1 caps)] Route: PO; kas2 Output: 20:53 Urine: 150.00ml (Voided); Total: 150.00ml. nn1 RT: 15:07 Initial Med Neb Given as ordered. Respiratory: Respiratory effort is Respiratory cs15 pattern is regular Sputum is thick yellow Breath sounds with wheezes bilaterally. at expiration. 18:34 Subsequent Med Neb Given as ordered. Respiratory: Breath sounds with wheezes cs15 bilaterally. at expiration. 20:34 ABG's drawn from right radial artery pressure held for 5 minutes no bleeding noted bb3 pressure bandage applied specimen sent pt. tolerated well. O2 via nasal cannula \T\ 4L/min. 20:34 O2 via nasal cannula 4LPM sp02 92%. Respiratory: Sputum is thick brown yellow. bb3 21:16 Respiratory: pt refusing BIPAP. dr cunningham aware. bb3 23:21 Respiratory: posterior bilateral diminished LL coarse rales. anterior lung sounds bb3 diminished coarse. 23:23 Subsequent Med Neb Given as ordered. bb3 Order Results: Lab Order: Basic Metabolic Profile; SPEC'M 05/18/16 15:51 Test: GLUCOSE, FASTING; Value: 157; Range: 83-110; Abnormal: Above high normal; Units: MG/DL; Status: F Test: BLOOD UREA NITROGEN; Value: 23; Range: 7-18; Abnormal: Above high normal; Units: MG/DL; Status: F Test: CREATININE FOR GFR; Value: 1.13; Range: 0.55-1.02; Abnormal: Above high normal; Units: MG/DL; Status: F Test: GLOMERULAR FILTRATION RATE; Value: 50.5; Range: >39; Status: F Test: SODIUM LEVEL; Value: 136; Range: 136-145; Units: MEQ/L; Status: F Test: POTASSIUM SERUM; Value: 3.1; Range: 3.5-5.1; Abnormal: Below low normal; Units: MEQ/L; Status: F Test: CHLORIDE LEVEL; Value: 88; Range: 98-107; Abnormal: Below low normal; Units: MEQ/L; Status: F Test: CARBON DIOXIDE LEVEL; Value: 39; Range: 21-32; Abnormal: Above high normal; Units: MEQ/L; Status: F Test: ANION GAP; Value: 9; Range: 8-16; Units: MEQ/L; Status: F Test: CALCIUM LEVEL; Value: 9.4; Range: 8.8-10.2; Units: MG/DL; Status: F Test Note: ; Units are mL/min/1.73 m2 Chronic Kidney Disease Staging per NKF: Stage I & II GFR >=60 Normal to Mildly Decreased Stage III GFR 30-59 Moderately Decreased Stage IV GFR 15-29 Severely Decreased Stage V GFR <15 Very Little GFR Left ESRD GFR <15 on COTA Lab Order: CBC with Diff; SPEC'M 05/18/16 15:13 Test: WHITE BLOOD COUNT; Value: 10.0; Range: 4.0-10.0; Units: K/mm3; Status: F Test: RED BLOOD COUNT; Value: 4.47; Range: 4.00-5.40; Units: M/mm3; Status: F Test: HEMOGLOBIN; Value: 11.9; Range: 12.0-16.0; Abnormal: Below low normal; Units: g/dl; Status: F Test: HEMATOCRIT; Value: 38.2; Range: 36.0-47.0; Units: %; Status: F Test: MEAN CORPUSCULAR VOLUME; Value: 85.6; Range: 80.0-96.0; Units: fl; Status: F Test: MEAN CORPUSCULAR HEMOGLOBIN; Value: 26.7; Range: 27.0-33.0; Abnormal: Below low normal; Units: pg; Status: F Test: MEAN CORPUSCULAR HGB CONC; Value: 31.2; Range: 32.0-36.5; Abnormal: Below low normal; Units: g/dl; Status: F Test: RED CELL DISTRIBUTION WIDTH; Value: 15.5; Range: 11.5-14.5; Abnormal: Above high normal; Units: %; Status: F Test: PLATELET COUNT, AUTOMATED; Value: 270; Range: 150-450; Units: k/mm3; Status: F Test: NEUTROPHILS; Value: 88; Range: 35-75; Abnormal: Above high normal; Units: %; Status: F Test: BANDS; Value: 1; Range: < 11; Units: %; Status: F Test: LYMPHOCYTES; Value: 4; Range: 16-52; Abnormal: Below low normal; Units: %; Status: F Test: MONOCYTES; Value: 4; Range: 0-8; Units: %; Status: F Test: ATYPICAL LYMPH; Value: 3; Range: 0-5; Units: %; Status: F Test: POLYCHROMASIA; Value: 1+; Status: F Test: HYPOCHROMASIA; Value: 1+; Status: F Test: ANISOCYTOSIS; Value: 1+; Status: F Lab Order: Cardiac Injury Profile; [facility] 05/18/16 15:51 Test: CPK CREATINE PHOSPHOKINASE; Value: 206; Range: 26-192; Abnormal: High; Units: U/L; Status: F Test: CK-MB VALUE MASS; Value: 3.7; Range: 0.0-3.6; Abnormal: Above high normal; Units: NG/ML; Status: F Test: MB/CK RELATIVE INDEX; Value: 1.79; Range: < OR =4; Status: F Test Note: ; DIAGNOSIS CRITERIA MMB ng/ml Relative Index (RI) NON-AMI < or = 5 N/A NARAYAN ZONE > 5 < or = 4 AMI > 5 > 4 Lab Order: Troponin; SPEC'M 05/18/16 15:51 Test: TROPONIN I; Value: 0.19; Range: < 0.10; Abnormal: High; Units: NG/ML; Status: F Test Note: ; Troponin I Reference Interval for [place] LOCI: 99th Percentile= 0.00-0.045 ng/ml Risk Stratification: <= 0.10 ng/ml Decreased Risk for Adverse Clinical Events. 0.10-1.50 ng/ml Increased Risk for Adverse Clinical Events. Evaluation of additional criterion and/or repeat testing in 2-6 hours is suggested to rule out myocardial damage. >= 1.50 ng/ml Indicative of Myocardial Injury. Lab Order: BNP; [facility] 05/18/16 15:13 Test: BRAIN NATRIURETIC PEPTIDE; Value: 1610; Range: <100; Abnormal: Above high normal; Units: PG/ML; Status: F Lab Order: PLATELET ESTIMATE; [facility] 05/18/16 15:13 Test: PLATELET ESTIMATE; Value: NORMAL; Range: NORMAL; Status: F Lab Order: ARTERIAL BLOOD GAS; [facility] 05/18/16 20:25 Test: ABG pH (ARTERIAL); Value: 7.361; Range: 7.350-7.450; Units: UNITS; Status: F Test: ABG PARTIAL PRESSURE CO2; Value: 74.2; Range: 35.0-45.0; Abnormal: Above upper panic limits; Units: mmHg; Status: F Test: ABG PARTIAL PRESSURE O2; Value: 63.2; Range: 75.0-100.0; Abnormal: Below low normal; Units: mmHg; Status: F Test: ABG TOTAL CO2; Value: 43.3; Range: 23.0-31.0; Abnormal: Above high normal; Units: MEQ/L; Status: F Test: ABG HCO3; Value: 41.1; Range: 22.0-26.0; Abnormal: Above high normal; Units: MEQ/L; Status: F Test: ABG BASE EXCESS; Value: 12.7; Range: -2.0-2.0; Abnormal: Above high normal; Status: F Test: ABG STANDARD HCO3; Value: 36.3; Range: 22.0-26.0; Abnormal: Above high normal; Units: MEQ/L; Status: F Test: ABG O2 SATURATION; Value: 91.1; Range: 95.0-99.0; Abnormal: Below low normal; Units: %; Status: F Lab Order: CARDIAC INJURY PROFILE; [facility] 05/19/16 00:05 Test: CPK CREATINE PHOSPHOKINASE; Value: 309; Range: 26-192; Abnormal: Above high normal; Units: U/L; Status: F Test: CK-MB VALUE MASS; Value: 6.1; Range: 0.0-3.6; Abnormal: Above high normal; Units: NG/ML; Status: F Test: MB/CK RELATIVE INDEX; Value: 1.97; Range: < OR =4; Status: F Test Note: ; DIAGNOSIS CRITERIA MMB ng/ml Relative Index (RI) NON-AMI < or = 5 N/A NARAYAN ZONE > 5 < or = 4 AMI > 5 > 4 Lab Order: CARDIAC INJURY PROFILE; [facility] 05/19/16 11:54 Test: CPK CREATINE PHOSPHOKINASE; Value: 262; Range: 26-192; Abnormal: Above high normal; Units: U/L; Status: F Test: CK-MB VALUE MASS; Value: 3.9; Range: 0.0-3.6; Abnormal: Above high normal; Units: NG/ML; Status: F Test: MB/CK RELATIVE INDEX; Value: 1.48; Range: < OR =4; Status: F Test Note: ; DIAGNOSIS CRITERIA MMB ng/ml Relative Index (RI) NON-AMI < or = 5 N/A NARAYAN ZONE > 5 < or = 4 AMI > 5 > 4 Lab Order: TROPONIN; [facility] 05/19/16 00:05 Test: TROPONIN I; Value: 0.61; Range: < 0.10; Abnormal: High; Units: NG/ML; Status: F Test Note: ; Troponin I Reference Interval for [place]: 99th Percentile= 0.00-0.045 ng/ml Risk Stratification: <= 0.10 ng/ml Decreased Risk for Adverse Clinical Events. 0.10-1.50 ng/ml Increased Risk for Adverse Clinical Events. Evaluation of additional criterion and/or repeat testing in 2-6 hours is suggested to rule out myocardial damage. >= 1.50 ng/ml Indicative of Myocardial Injury. Lab Order: TROPONIN; SPEC' 05/19/16 11:54 Test: TROPONIN I; Value: 0.54; Range: < 0.10; Abnormal: Above high normal; Units: NG/ML; Status: F Test Note: ; Troponin I Reference Interval for [place]: 99th Percentile= 0.00-0.045 ng/ml Risk Stratification: <= 0.10 ng/ml Decreased Risk for Adverse Clinical Events. 0.10-1.50 ng/ml Increased Risk for Adverse Clinical Events. Evaluation of additional criterion and/or repeat testing in 2-6 hours is suggested to rule out myocardial damage. >= 1.50 ng/ml Indicative of Myocardial Injury. Lab Order: COMPLETE BLOOD COUNT; [facility] 05/19/16 06:32 Test: WHITE BLOOD COUNT; Value: 11.0; Range: 4.0-10.0; Abnormal: Above high normal; Units: K/mm3; Status: F Test: RED BLOOD COUNT; Value: 4.37; Range: 4.00-5.40; Units: M/mm3; Status: F Test: HEMOGLOBIN; Value: 11.8; Range: 12.0-16.0; Abnormal: Below low normal; Units: g/dl; Status: F Test: HEMATOCRIT; Value: 36.9; Range: 36.0-47.0; Units: %; Status: F Test: MEAN CORPUSCULAR VOLUME; Value: 84.3; Range: 80.0-96.0; Units: fl; Status: F Test: MEAN CORPUSCULAR HEMOGLOBIN; Value: 26.9; Range: 27.0-33.0; Abnormal: Below low normal; Units: pg; Status: F Test: MEAN CORPUSCULAR HGB CONC; Value: 31.9; Range: 32.0-36.5; Abnormal: Below low normal; Units: g/dl; Status: F Test: RED CELL DISTRIBUTION WIDTH; Value: 15.4; Range: 11.5-14.5; Abnormal: Above high normal; Units: %; Status: F Test: PLATELET COUNT, AUTOMATED; Value: 250; Range: 150-450; Units: k/mm3; Status: F Lab Order: COMPLETE COMPHRENSIVE METABOLI; [facility] 05/19/16 06:32 Test: GLUCOSE, FASTING; Value: 146; Range: 83-110; Abnormal: Above high normal; Units: MG/DL; Status: F Test: BLOOD UREA NITROGEN; Value: 22; Range: 7-18; Abnormal: Above high normal; Units: MG/DL; Status: F Test: CREATININE FOR GFR; Value: 0.98; Range: 0.55-1.02; Units: MG/DL; Status: F Test: GLOMERULAR FILTRATION RATE; Value: 59.6; Range: >39; Status: F Test: SODIUM LEVEL; Value: 138; Range: 136-145; Units: MEQ/L; Status: F Test: POTASSIUM SERUM; Value: 3.7; Range: 3.5-5.1; Units: MEQ/L; Status: F Test: CHLORIDE LEVEL; Value: 88; Range: 98-107; Abnormal: Below low normal; Units: MEQ/L; Status: F Test: CARBON DIOXIDE LEVEL; Value: 42; Range: 21-32; Abnormal: Above high normal; Units: MEQ/L; Status: F Test: ANION GAP; Value: 8; Range: 8-16; Units: MEQ/L; Status: F Test: CALCIUM LEVEL; Value: 9.0; Range: 8.8-10.2; Units: MG/DL; Status: F Test: AST/SGOT; Value: 27; Range: 15-37; Units: U/L; Status: F Test: ALT/SGPT; Value: 22; Range: 12-78; Units: U/L; Status: F Test: ALKALINE PHOSPHATASE; Value: 73; Range: 45-117; Units: U/L; Status: F Test: BILIRUBIN,TOTAL; Value: 0.3; Range: 0.2-1.0; Units: MG/DL; Status: F Test: TOTAL PROTEIN; Value: 6.7; Range: 6.4-8.2; Units: GM/DL; Status: F Test: ALBUMIN; Value: 3.1; Range: 3.2-5.2; Abnormal: Below low normal; Units: GM/DL; Status: F Test: ALBUMIN/GLOBULIN RATIO; Value: 0.86; Range: 1.00-1.93; Abnormal: Below low normal; Status: F Test Note: ; Units are mL/min/1.73 m2 Chronic Kidney Disease Staging per NKF: Stage I & II GFR >=60 Normal to Mildly Decreased Stage III GFR 30-59 Moderately Decreased Stage IV GFR 15-29 Severely Decreased Stage V GFR <15 Very Little GFR Left ESRD GFR <15 on COTA Lab Order: MAGNESIUM LEVEL; SPEC'05/19/16 06:32 Test: MAGNESIUM LEVEL; Value: 1.9; Range: 1.8-2.4; Units: MG/DL; Status: F Lab Order: CARDIAC INJURY PROFILE; SPEC'05/19/16 06:32 Test: CPK CREATINE PHOSPHOKINASE; Value: 290; Range: 26-192; Abnormal: Above high normal; Units: U/L; Status: F Test: CK-MB VALUE MASS; Value: 5.2; Range: 0.0-3.6; Abnormal: Above high normal; Units: NG/ML; Status: F Test: MB/CK RELATIVE INDEX; Value: 1.79; Range: < OR =4; Status: F Test Note: ; DIAGNOSIS CRITERIA MMB ng/ml Relative Index (RI) NON-AMI < or = 5 N/A NARAYAN ZONE > 5 < or = 4 AMI > 5 > 4 Lab Order: TROPONIN; SPEC'M 05/19/16 06:32 Test: TROPONIN I; Value: 0.57; Range: < 0.10; Abnormal: Above high normal; Units: NG/ML; Status: F Test Note: ; Troponin I Reference Interval for [place] LOCI: 99th Percentile= 0.00-0.045 ng/ml Risk Stratification: <= 0.10 ng/ml Decreased Risk for Adverse Clinical Events. 0.10-1.50 ng/ml Increased Risk for Adverse Clinical Events. Evaluation of additional criterion and/or repeat testing in 2-6 hours is suggested to rule out myocardial damage. >= 1.50 ng/ml Indicative of Myocardial Injury. Radiology Order: EKG-ADULT Test: EKG-ADULT REASON FOR EXAMINATION: Chest Pain; Stationary ECG Study; [facility] - ED; ; Test Date: 2016-05-18; Pat Name: ROBERTA GUERRA Department:; Room: -; Gender: F Senior Interactive Producer: IGLESIA; : 1945 Requested By: PABLO Christopher; Order Number: [id number] Reading MD: Keren Payan; Measurements; Intervals [place]; Rate: 111 P: 51; MT: 179 QRS: -60; QRSD: 88 T: 73; QT: 301; QTc: 409; Interpretive Statements; SINUS TACHYCARDIA WITH OCCASIONAL VENTRICULAR PREMATURE COMPLEXES WITH; OCCASIONAL; SUPRAVENTRICULAR PREMATURE COMPLEXES; LEFT ANTERIOR FASCICULAR BLOCK; ANTEROSEPTAL MYOCARDIAL INFARCTION, OF INDETERMINATE AGE; ST DEPRESSION, CONSIDER SUBENDOCARDIAL INJURY COMPARED 05/17/16; ; Electronically Signed On 05-18-2016 20:20:37 EST by Keren Payan; Radiology Order: Chest, 1 View Test: Chest, 1 View REASON FOR EXAMINATION: Chest Pain; CHEST, ONE VIEW:; ; HISTORY: Chest pain.; ; COMPARISON: 05/17/2016; ; An increase in interstitial markings is present in the lungs consistent with; interstitial edema. Increased density is present in the right lower lobe; consistent with atelectasis. The cardiac silhouette is enlarged. The pulmonary; vasculature is prominent.; ; IMPRESSION:; ; 1. Interstitial edema.; ; 2. Cardiomegaly.; ; ; Signed by; Eduard Shahid MD 05/18/2016 04:04 P; Outcome: 17:33 Decision to Hospitalize by Provider. br1 05/19 17:47 Discharge Assessment: Patient awake and alert. intermittent confusion. patient aa3 administered narcotics - no. The following High Risk Discharge criteria are identified: None. Admitted accompanied by nurse, accompanied by tech, with oxygen, on monitor, with chart. Condition: good. CT Study completed. Admission hand-off: Report called to Naomi Joy RN. Property :Personal belongings accompany Pt. 17:48 Patient left the ED. aa3 Signatures: Dispatcher [employer] EDMS Saurabh Tomas,RN RN Ly Ledezma, Willam Mendoza, RN RN mlb1 Pablo Odonnell MD MD br1 Kate Teixeira mt4 Amirah Jennings,RN RN rs3 Guero Sands bb3 Halle Gan, RN RN sls1 Antony Rodriguez jml1 Angella Whitfield, BRAKE SHOE REBUILDER BRAKE SHOE REBUILDER tmm1 Nidia Enamorado,RN RN aa3 Sam Bunn, BRAKE SHOE REBUILDER BRAKE SHOE REBUILDER jlf Elsa Ayala,RN RN nn1 Sony Fowler,RT RT cs15 Annia Burton Kim,RN RN kas2 Chart Complete MTDD
== END 2016-05-21 06:04 | disposition expired ==
LOC: M ED 14:22 → M ED INP 18:45 → M ALC 05-19 18:16 → M ICU 05-20 17:00 → M ALC 05-21 06:00
PROVIDERS: ADMIT Internal Medicine; ATTEND Internal Medicine
DX: I21.4 Non-ST elevation (NSTEMI) myocardial infarction (principal); I50.33 Acute on chronic diastolic (congestive) heart failure; J96.02 Acute respiratory failure with hypercapnia; J18.9 Pneumonia, unspecified organism; J44.1 Chronic obstructive pulmonary disease with (acute) exacerbation; E87.2 Acidosis; Z51.5 Encounter for palliative care; Z66 Do not resuscitate; I25.10 Atherosclerotic heart disease of native coronary artery without angina pectoris; I11.0 Hypertensive heart disease with heart failure; K21.9 Gastro-esophageal reflux disease without esophagitis; Z85.42 Personal history of malignant neoplasm of other parts of uterus; Z86.73 Personal history of transient ischemic attack (TIA), and cerebral infarction without residual deficits; F17.210 Nicotine dependence, cigarettes, uncomplicated; Z79.82 Long term (current) use of aspirin; Z79.899 Other long term (current) drug therapy; Z88.8 Allergy status to other drugs, medicaments and biological substances; Y95 Nosocomial condition